=== PATIENT | female | born 1960 | race Caucasian/White ===

== ENCOUNTER 2017-10-25 09:16 | Outpatient (CLI) | payer OTHER | END 2017-10-25 09:17 | disposition home or self-care (01) | LOC: BICCT 09:16 | PROVIDERS: ATTEND Internal Medicine Hematology & Oncology | DX: C54.1 Malignant neoplasm of endometrium (principal); C78.39 Secondary malignant neoplasm of other respiratory organs | CPT/HCPCS: 71260; 74177 ==

== ENCOUNTER 2017-12-22 08:46 | Outpatient (CLI) | payer OTHER ==
[2017-12-22] MEDS ORDERED: Iopamidol 370 76% 100 ML VIAL ONE (09:00)
--- NOTE | 2017-12-22 14:14 | CT ---
CT OF NECK SOFT TISSUES: INDICATION: Neck masses, history of uterine cancer. FINDINGS: Underlying the left neck palpable marker, there is a heterogeneous, spiculated bilobed mass which is located just to the left lateral aspect of the carotid sheath and underlying the left sternocleidomas toid muscle, with transverse diameter of 2 cm, AP diameter of 2.2 cm, and craniocaudal extent of appr oximately 2.5 cm. There is no intrinsic mass of the salivary glands or thyroid gland. There is appo sition of mucosal surfaces of the oropharynx. The nasopharynx is free from mass effect. There is mi ld redundancy/medial deviation of the right vocal cord. Incompletely assessed soft tissue nodularity is seen at the upper mediastinal fat. There is a right chest port in place. There is no discrete soft tissue mass underlying the right side palpable marker. There is a grouping of nonenlarged lymph nodes underlying the right palpable marker, situated just deep to the right daniel rnocleidomastoid muscle and lateral to the right internal jugular vein. There is scattered osseous d egenerative change. IMPRESSION: 1. Heterogeneous spiculated bilobed mass of the left neck underlying the left palpable marker which does indicate malignancy, metastatic in etiology given the appearance and location. 2. Additional findings are detailed above. Soft tissue mass situated deep within the neck soft tiss ues and just inferior to the inferior aspect of the left side palpable marker. The mass is spiculate d in morphology measuring approximately 2.1 cm in diameter with surrounding linear densities of the a djacent fat. POS: [facility]
--- NOTE | 2017-12-22 18:57 | CT ---
CT CHEST WITH IV CONTRAST CT ABDOMEN AND PELVIS WITH IV AND ORAL CONTRAST 12/22/17 HISTORY: Endometrial cancer with metastatic disease. Restaging. COMPARISON: 10/25/17. FINDINGS: Lesion at the left neck base is better detailed on dedicated CT neck. There is mild atelectasis at th e lung bases. The prevascular lymph node followed on previous exam is now 0.9 cm. Other lymph nodes scattered throu ghout the mediastinum are now more prominent, although not technically enlarged. Upper prevascular 0. 8 cm. Preaortic 1.1 cm. Very small precarinal lymph nodes. Small cysts scattered throughout the liver are unchanged in appearance. Solid organs are stable. Retroperitoneal lymph nodes have enlarged. The largest is now immediately superior to the retroaortic left renal vein, measuring 1.6 cm. Aortocaval node is 1.3 cm. Left para-aortic lymph node is 0.9 cm. More visible but nonenlarged lymph nodes are present along each common iliac chain. Urinary bladder is incompletely distended. Degenerative changes throughout the lumbar spine. IMPRESSION: While the largest of the now more conspicuous mediastinal and retroperitoneal lymph nodes are only sl ightly enlarged, as detailed above, there has indeed been significant change from the 10/27/17 study. Chronic type findings are stable. POS: [facility]
== END 2017-12-22 08:47 | disposition home or self-care (01) ==
LOC: SCSCT 08:46
PROVIDERS: ATTEND Internal Medicine Hematology & Oncology
DX: C54.1 Malignant neoplasm of endometrium (principal); C78.39 Secondary malignant neoplasm of other respiratory organs; R59.0 Localized enlarged lymph nodes; C79.89 Secondary malignant neoplasm of other specified sites
CPT/HCPCS: 70491; 71260; 74177

== ENCOUNTER 2017-12-28 12:25 | Outpatient (CLI) | payer OTHER | END 2017-12-28 12:26 | disposition home or self-care (01) | LOC: ULT 12:25 | PROVIDERS: ATTEND Internal Medicine Hematology & Oncology | DX: C56.1 Malignant neoplasm of right ovary (principal); I08.1 Rheumatic disorders of both mitral and tricuspid valves | CPT/HCPCS: 93306 ==

== ENCOUNTER 2017-12-29 11:38 | Outpatient (CLI) | payer OTHER ==
--- NOTE | 2017-12-29 12:53 | RAD ---
VASCULAR ACCESS PORT CHECK: HISTORY: Swelling of the right arm. COMPARISON: None. FINDINGS: The patient was brought to the fluoroscopy suite. All questions were answered. The port was accessed, and 10 mL of contrast was instilled into the port. Contrast easily passed thr ough the port, with contrast in the right atrium. IMPRESSION: Normal port check. Patent port. POS: [facility]
[2017-12-29] MEDS ORDERED: Iopamidol 300 61% 50 ML VIAL FS ONE (13:40)
== END 2017-12-29 11:39 | disposition home or self-care (01) ==
LOC: RAD 11:38
PROVIDERS: ATTEND Nurse Practitioner Acute Care
DX: C78.39 Secondary malignant neoplasm of other respiratory organs (principal); C56.1 Malignant neoplasm of right ovary; C54.1 Malignant neoplasm of endometrium; R59.0 Localized enlarged lymph nodes
CPT/HCPCS: 36598; J1642

== ENCOUNTER 2018-03-09 13:59 | Day surgery (SDC) | payer OTHER ==
[2018-03-09] MEDS ORDERED: Sodium Chloride 0.9% 20 ML ONE (14:28)
[2018-03-09] MEDS ORDERED: Acetaminophen 500 MG TAB PO SCH (14:30)
[2018-03-09] MEDS ORDERED: diphenhydrAMINE 25 MG CAP PO SCH (14:30)
[2018-03-09 18:38] VITALS: BP 140/72; TEMP 98.2
[2018-03-09 18:54] LABS: #Eosinphils 0.1 thou/uL (0.0-0.7); #Lymphocytes 1.7 thou/uL (1.20-3.40); #Monocytes 0.2 thou/uL (0.11-0.59); #Neutrophils 8.1 thou/uL (1.40-6.50); %Basophils 0.4 % (0.0-1.0); %Eosinophils 1.2 % (0.0-10.0); %Lymphocytes 16.7 % (21.0-51.0); %Neutrophils 79.8 % (42.0-75.0); Hemoglobin 8.4 g/dL (12.0-16.0); Mean Corpuscular HGB CONC 32.4 g/dL (32.0-36.0); Mean Corpuscular Hemoglobin 28.3 pg (27.0-31.0); Mean Corpuscular Volume 87.4 fL (78.0-98.0); Mean Platelet Volume 5.8 fL (7.4-10.4); Platelet Count 52 thou/uL (130-400); RBC Distribution Width 16.1 % (11.5-14.5); Red Blood Cell (RBC) Count 2.95 mill/uL (4.20-5.40); White Blood Cell (WBC) Count 10.2 thou/uL (4.8-10.8)
[2018-03-09 19:07] LABS: Anisocytosis SLIGHT = 6-15 cells (100X) (0-5/hpf); MDiff Complete? YES; PLT Morphology Comment Appears Decreased; Polychromasia SLIGHT = 2-3 cells (100X) (0-2/hpf); Schistocytes SLIGHT = 2-5 cells (100X) (0-1/hpf)
== END 2018-03-09 18:39 | disposition home or self-care (01) ==
LOC: ONC/OP 13:59
PROVIDERS: ATTEND Internal Medicine Hematology & Oncology
DX: D64.9 Anemia, unspecified (principal); D69.6 Thrombocytopenia, unspecified; Z88.2 Allergy status to sulfonamides
CPT/HCPCS: 36430; 85025; 86850; 86900; 86901; P9016

== ENCOUNTER 2018-03-23 08:28 | Outpatient (CLI) | payer OTHER ==
[2018-03-23] MEDS ORDERED: ISOVUE-370 76%-LOCM 1 ML ONE (12:31)
--- NOTE | 2018-03-23 13:10 | CT ---
CONTRAST ENHANCED CT IMAGES SOFT TISSUE NECK: HISTORY: Patient with ovarian cancer. COMPARISON: 12/22/2017 FINDINGS: Contrast enhanced CT images of the soft tissue neck demonstrate areas of focal soft tissue enhancemen t along the left carotid space, posterior to the left internal jugular vein. Maximum diameter measur es approximately 1.4 cm. This has not significantly changed since the previous comparison CT. The m argins of this lesion are ill defined, extending into the surrounding soft tissue neck margins, inclu ding the adjacent fat and the posterior wall of the left internal jugular vein. There is also an julio roximately 1.5 cm area of ill defined density, just posterior to the medial aspect of the left clavic le, at the sternoclavicular notch. This area previously was difficult to visualize due to the streak ing artifact from injected left upper extremity contrast. This area is visible on today's exam and a ppears to be anterior to the proximal portion of the left common carotid artery. It may represent a newly developed mass or may represent better visualization of the same area. In addition, asymmetric density is also seen at the junction of the left anterior middle scalene muscles, seen on axial imag e 49. This appears to have been present on the previous exam and may represent possible metastatic d isease in the low left neck, involving the expected exit of the left brachial plexus. IMPRESSION: Stable soft tissue neck metastatic lesions. POS: [facility]
--- NOTE | 2018-03-23 13:52 | CT ---
CT CHEST WITH CONTRAST: HISTORY: Endometrial cancer. Ovarian cancer. COMPARISON: 12/22/2017 FINDINGS: Again, a right jugular Mediport catheter is seen. There is a left medial supraclavicular lymph node, which appears to be slightly smaller than the previous exam. This measures approximately 10.5 mm, c ompared to previous measurement of approximately 12.5 mm. Some minimal superior and AP window lymph node enlargement is again seen, not significantly changed since the previous exam. Minimally enlarge d anterior mediastinal lymph node is again seen, not significantly changed since the previous exam. No definite evidence of pulmonary parenchymal lesions seen. Hypodense lesions seen in the hepatic parenchyma, unchanged since the previous exam. Paraaortic lymph node enlargement also again seen, not significantly changed since the previous exam. IMPRESSION: Lower soft tissue neck, mediastinal, and periaortic lymphadenopathy, which is stable and not signific antly increased. POS: [facility]
== END 2018-03-23 08:29 | disposition home or self-care (01) ==
LOC: BICCT 08:28
PROVIDERS: ATTEND Internal Medicine Hematology & Oncology
DX: C54.1 Malignant neoplasm of endometrium (principal); C56.1 Malignant neoplasm of right ovary; C78.39 Secondary malignant neoplasm of other respiratory organs; C79.89 Secondary malignant neoplasm of other specified sites; R59.0 Localized enlarged lymph nodes
CPT/HCPCS: 70491; 71260; 74160

== ENCOUNTER 2018-04-07 12:46 | Inpatient (IN) | payer OTHER ==
[2018-04-07 14:44] VITALS: BMI 23.8
[2018-04-07 17:10] LABS: Anion Gap 13 mmol/L (10-20); BUN (Urea Nitrogen) 19 mg/dL (9.8-20.1); Calc. Creatinine Clearance 51 mL/min (70-130); Calcium 8.8 mg/dL (7.8-10.44); Carbon Dioxide 18 mmol/L (22-29); Chloride 112 mmol/L (98-107); Estimated GFR-MDRD 49; Glucose 114 mg/dL (70-105); Potassium 3.4 mmol/L (3.5-5.1); Sodium 140 mmol/L (136-145)
[2018-04-07] MEDS: HYDROcodone/Acetaminophen 5/325 mg Tablet PO PRN ×2 (17:12→21:17)
[2018-04-07] MEDS: Sodium Chloride 0.9% 1,000 ML IV SCH (17:31)
[2018-04-07] MEDS: Vancomycin HCl 1 GM in Premix Bag 1 BAG IVPB SCH (17:34)
[2018-04-07] MEDS: Piperacillin/Tazobactam 3.375 GM in Sodium Chloride 0.9% 100 ML IVPB SCH ×2 (18:48→23:54)
--- NOTE | 2018-04-07 22:47 | CON ---
DATE OF CONSULTATION: 04/07/2018 REASON FOR CONSULTATION: Possible Medi-Port infection. HISTORY OF PRESENT ILLNESS: Ms. Martin is a 57-year-old woman, who is undergoing adjuvant chemotherapy for uterine cancer. She underwent neoadjuvant chemotherapy and surgery at [facility] in [place] and was found to have lymph node involvement by report. She has been undergoing chemotherapy since that time and last received her chemotherapy about 2 weeks ago. She states that she was in good health until yesterday when she developed nausea, vomiting, crampy abdominal pain, and diarrhea. She then developed fevers at home and shaking chills and noticed that the neck and chest where her Medi-Port is located was red and swollen. She came to an outside emergency room and was found to have an elevated white count and was transferred to [place] for further care. She initially defervesced after receiving Zosyn and vancomycin at the outside emergency room, but then had a recrudescence of her fever on her arrival here and is currently having chills again. She states that she does not have any abdominal pain today or any nausea, but she was tender in the right upper quadrant on her examination and a gallbladder ultrasound has been ordered for tomorrow morning. PAST MEDICAL HISTORY: Uterine cancer. PAST SURGICAL HISTORY: Distant appendectomy and more recent total abdominal hysterectomy, bilateral salpingo-oophorectomy and lymph node dissection at [facility]. ALLERGIES: SHE HAS A REPORTED ALLERGY TO BACTRIM. CURRENT MEDICATIONS: Include: 1. Vancomycin. 2. Zosyn. 3. P.r.n. Tylenol and Bowie. 4. Home medications have not yet been reconciled. REVIEW OF SYSTEMS: 10-system review of systems is negative except per HPI. She reports that she has been tolerating chemotherapy well. FAMILY HISTORY: Noncontributory. SOCIAL HISTORY: She does not smoke, drink, or use illicit drugs. She is accompanied by her family. PHYSICAL EXAMINATION: VITAL SIGNS: Temperature 101.4, heart rate 80, respirations 16, 97% saturations on room air, blood pressure 129/60. GENERAL: Reveals an ill-appearing woman, in no acute distress. She is shivering under two blankets. HEENT: Unremarkable except for erythema, swelling, and tenderness over the course of her Medi-Port tubing on the right neck and chest. Due to her tenderness in this area, I cannot really palpate for lymphadenopathy at the base of her neck. HEART: Regular in its rate and rhythm without murmurs, rubs, or gallops. LUNGS: Clear to auscultation bilaterally. She does not have any pain with deep inspiration. ABDOMEN: Soft and nondistended. She is tender to palpation in the right upper quadrant without rigidity, rebound, or guarding. No palpable masses or hernias. EXTREMITIES: Warm and well-perfused without edema. NEUROLOGIC: No focal deficits. PSYCHIATRIC: Alert, oriented, and appropriate. LABORATORY DATA: Labs from the outside ER show a mild leukocytosis with a white count of 12. Other labs are unremarkable except for chronic anemia and a mild hypokalemia. Bicarb is down a little bit of 18 and creatinine is slightly elevated at 1.13. A chest x-ray done at the outside ER by report was clear. ASSESSMENT: Possible Medi-Port infection and possible cholecystitis. She has an ultrasound of the gallbladder pending for tomorrow and if this is normal, I would recommend a HIDA scan with ejection fraction due to high suspicion for cholecystitis. She has erythema and tenderness overlying her Medi-Port. Cultures from the Medi-Port are pending. I have discussed possible removal of the Medi-Port with Dr. Last of Oncology and he prefers to try a course of antibiotics to see if the port can be salvaged. If the cultures come back positive or the erythema and tenderness continue, then Medi- Port removal maybe necessary. There is no fluctuance around the Medi-Port itself and it has not been accessed for over a week. I will continue to follow her as an inpatient and await the outcome of her gallbladder studies and see how she responds to her course of antibiotics. Job ID: [id number]
[2018-04-08] MEDS: HYDROcodone/Acetaminophen 5/325 mg Tablet PO PRN ×2 (01:27→05:18)
[2018-04-08] MEDS: Vancomycin HCl 1 GM in Premix Bag 1 BAG IVPB SCH ×2 (05:14→18:21)
[2018-04-08] MEDS: Piperacillin/Tazobactam 3.375 GM in Sodium Chloride 0.9% 100 ML IVPB SCH ×3 (06:58→19:50)
[2018-04-08 07:28] LABS: ALT (SGPT) 13 U/L (8-55); AST (SGOT) 25 U/L (5-34); Albumin 3.1 g/dL (3.5-5.0); Alkaline Phosphatase 124 U/L (40-150); Anion Gap 11 mmol/L (10-20); BUN (Urea Nitrogen) 20 mg/dL (9.8-20.1); Bilirubin, Total 0.5 mg/dL (0.2-1.2); Calc. Creatinine Clearance 50 mL/min (70-130); Calcium 8.4 mg/dL (7.8-10.44); Carbon Dioxide 19 mmol/L (22-29); Chloride 111 mmol/L (98-107); Estimated GFR-MDRD 49; Globulin 2.7 g/dL (2.4-3.5); Glucose 120 mg/dL (70-105); Potassium 3.5 mmol/L (3.5-5.1); Protein, Total 5.8 g/dL (6.0-8.3); Sodium 137 mmol/L (136-145)
[2018-04-08 07:35] LABS: Hemoglobin 6.9 g/dL (12.0-16.0); Mean Corpuscular HGB CONC 33.6 g/dL (32.0-36.0); Mean Corpuscular Hemoglobin 28.9 pg (27.0-31.0); Mean Corpuscular Volume 86.1 fL (78.0-98.0); Mean Platelet Volume 10.7 fL (7.4-10.4); Platelet Count 43 thou/uL (130-400); RBC Distribution Width 14.8 % (11.5-14.5); Red Blood Cell (RBC) Count 2.39 mill/uL (4.20-5.40); White Blood Cell (WBC) Count 18.4 thou/uL (4.8-10.8)
[2018-04-08] MEDS ORDERED: Promethazine HCl 25 MG/ML VIAL IM/IV PRN (07:51)
--- NOTE | 2018-04-08 08:08 | ULT ---
RIGHT UPPER QUADRANT ULTRASOUND: INDICATIONS: Right upper quadrant tenderness. Nausea and vomiting. FINDINGS: There is intrahepatic and extrahepatic biliary ductal dilatation, which was not present on the compar steven CT, dated 12/22/2017. The gallbladder is moderately distended. There is report of a sonographi c Kahn sign but no appreciable gallbladder wall thickening. The main pancreatic duct is dilated up to 3 mm, which appears new from the comparison CT. The right kidney measures 10.1 cm in length. No hydronephrosis is evident. The visualized liver demonstrates numerous right hepatic lobe cysts, which were see better on the CT examination. The common bile duct is dilated up to 9.2 mm. IMPRESSION: New biliary ductal dilatation, as well as main pancreatic ductal dilatation. Obstructing process vasquez r the ampulla, possibly related to stone or mass, is not excluded. Would recommend consideration for an magnetic resonance cholangiopancreatography evaluation or, alternatively, a CT of the abdomen and pelvis with contrast, to further evaluate this abnormality. POS: [facility]
--- NOTE | 2018-04-08 08:16 | PDOC.PN ---
- Subjective Encounter Start Date: 04/08/18 Encounter Start Time: 08:15 Reports nausea again this morning. Had a lot of discomfort with the RUQ US this morning. Does also confirm that she has had anemia with her chemo and has had blood transfusions. She has not typically had nausea with her current regimen of chemo. - Objective Resuscitation Status - Order Detail: 04/07/18 16:14 Resuscitation Status Routine Resuscitation Status: FULL: Full Resuscitation Discussed with: patient Vital Signs & Weight: Vital Signs (12 hours) Temp Pulse Resp BP Pulse Ox 04/08/18 08:00 99.0 F 87 18 124/59 L 94 L 04/08/18 04:00 98.5 F 71 12 120/59 L 96 04/07/18 23:56 98.8 F 86 12 113/54 L 95 04/07/18 20:15 96 Weight Weight 130 lb I&O: 04/07/18 04/08/18 04/09/18 06:59 06:59 06:59 Intake Total 1029 Balance 1029 Result Diagrams: 04/08/18 06:39 04/08/18 06:39 Phys Exam - Physical Examination Constitutional: NAD Ill appearing. R SC tunneled catheter with persistent erythema and TTP. Increased edema in the R supraclav. area. Very TTP. Respiratory: no wheezing, no rales, no rhonchi, clear to auscultation bilateral Cardiovascular: RRR, no significant murmur, no rub Gastrointestinal: soft, no distention Extreme RUQ TTP with guarding. Musculoskeletal: no edema Neurological: non-focal Psychiatric: normal affect, A&O x 3 Dx/Plan (1) Infection of intravenous catheter Code(s): T82.7XXA - INFECT/INFLM REACT D/T OTH CARDI/VASC DEV/IMPLNT/GRFT, INIT Status: Acute Comment: Continue IV Vanc and Zosyn. Cultures pending. Surgery following. She discussed with Onc and the plan is to try to resolve with abx. She has generated a good leukocytosis, but her other counts are down. Concerning that she will not maintain the WBC's. (2) RUQ abdominal pain Code(s): R10.11 - RIGHT UPPER QUADRANT PAIN Status: Acute Comment: Still has GB. Very concerning for GB disease. US done this morning. Discussed with surgery. If negative, will follow up with HIDA. Should be adequately covered with current abx. (3) Uterine cancer Code(s): C55 - MALIGNANT NEOPLASM OF UTERUS, PART UNSPECIFIED Status: Acute Comment: Followed by Dr. Plascencia. Extensive LN involvement, but no major organ involvement. Ongoing chemo. Due for chemo on Monday. Will likely have to delay pending the course of the infected port and abd. pain. (4) Anemia due to chemotherapy Code(s): D64.81 - ANEMIA DUE TO ANTINEOPLASTIC CHEMOTHERAPY; T45.1X5A - ADVERSE EFFECT OF ANTINEOPLASTIC AND IMMUNOSUP DRUGS, INIT Status: Acute Comment: Amenable to transfusion. Tranfuse one unit 04/08/18. Continue to monitor. (5) Nausea Code(s): R11.0 - NAUSEA Status: Acute Comment: More likely related to RUQ pain and port infection than the chemo. PRN ondansetron and phenergan. (6) Thrombocytopenia Code(s): D69.6 - THROMBOCYTOPENIA, UNSPECIFIED Status: Acute Comment: Chemo related. Continue to monitor. Will complicate surgical picture. - Plan * Above..
[2018-04-08] MEDS: Sodium Chloride 0.9% 1,000 ML IV SCH (08:27)
[2018-04-08] MEDS: Ondansetron PF 4 MG/2 ML Vial IVP PRN (08:27)
[2018-04-08] MEDS ORDERED: Prevnar 13-Val Conj/PF 0.5 ML SYRINGE IM ONE (09:00)
[2018-04-08 10:53] LABS: Band 4 % (5-11); Hypochromia SLIGHT = 6-15 cells (100X) (0-5/hpf); Lymphocytes 9 % (21-51); MDiff Complete? YES; Microcytosis MODERATE=15-30 cells (100X) (0-5/hpf); Monocytes 2 % (0-10); Neutrophil 84 % (42-75); PLT Morphology Comment Appears Decreased; Polychromasia SLIGHT = 2-3 cells (100X) (0-2/hpf)
[2018-04-08] MEDS: Amlodipine 10 MG TAB PO SCH ×2 (10:57→14:57)
[2018-04-08] MEDS: Lisinopril 10 MG TAB PO SCH ×2 (10:58→14:57)
[2018-04-08] MEDS: Hydrochlorothiazide 25 MG TAB PO SCH ×2 (10:58→14:57)
[2018-04-08] MEDS: HYDROcodone/Acetaminophen 10/325 mg Tablet PO PRN ×2 (12:03→18:20)
[2018-04-08] MEDS ORDERED: Sodium Chloride 0.9% 1,000 ML IV SCH (12:45)
--- NOTE | 2018-04-08 13:52 | MRI ---
MRI ABDOMEN WITHOUT CONTRAST: INDICATIONS: History of metastatic uterine cancer with pancreatic and biliary ductal dilatation. Concern for ston e within the common bile duct. COMPARISON: CT abdomen and pelvis dated 12/22/2017 and right upper quadrant ultrasound dated 04/08/2018. TECHNIQUE: Multiplanar, multisequence MR images were obtained of the abdomen, utilizing an MRCP protocol. FINDINGS: There is moderate distention of the gallbladder with mild gallbladder wall thickening. There is a carbajal spected small pharyngeal cap involving the gallbladder fundus. There is moderate intrahepatic and ex trahepatic biliary ductal dilatation, with the common bile duct measuring 8.5 mm. There is some susp ected layered debris within the distal common bile duct, best seen on image 15 of series 2 and image 33 and 34 of series 3. There is mild main pancreatic ductal dilatation, with the main pancreatic benjamin t measuring 3 mm, at the level of the pancreatic head. There is some mild seen within the left aspec t of the anterior pararenal space, near the pancreatic tail which may reflect a component of pancreat itis. There are multiple hepatic and left renal cysts. IMPRESSION: 1. Findings suspicious for layered gallbladder sludge, at the level of the distal common bile duct, with moderate dilatation of the intrahepatic and extrahepatic biliary ducts. There is mild dilatati on of the main pancreatic duct. 2. There is edema seen adjacent to the pancreatic tail, within the anterior pararenal space, suspici ous for pancreatitis. Recommend correlation. 3. Hepatic and left renal cysts. POS: [facility]
[2018-04-08] MEDS ORDERED: Sodium Chloride 0.65% Nasal 44 ML BOT EA NARE PRN (19:27)
[2018-04-09] MEDS: HYDROcodone/Acetaminophen 10/325 mg Tablet PO PRN ×4 (00:40→17:53)
[2018-04-09] MEDS: Piperacillin/Tazobactam 3.375 GM in Sodium Chloride 0.9% 100 ML IVPB SCH ×5 (00:41→23:04)
[2018-04-09] MEDS: Sodium Chloride 0.9% 1,000 ML IV SCH ×3 (04:33→21:35)
[2018-04-09] MEDS: Vancomycin HCl 1 GM in Premix Bag 1 BAG IVPB SCH ×2 (06:00→16:04)
[2018-04-09 06:32] LABS: #Eosinphils 0.2 thou/uL (0.0-0.7); #Lymphocytes 1.1 thou/uL (1.20-3.40); #Monocytes 0.6 thou/uL (0.11-0.59); #Neutrophils 10.1 thou/uL (1.40-6.50); %Basophils 0.2 % (0.0-1.0); %Eosinophils 1.4 % (0.0-10.0); %Lymphocytes 8.9 % (21.0-51.0); %Monocytes 5.3 % (0.0-10.0); %Neutrophils 84.2 % (42.0-75.0); Hemoglobin 8.2 g/dL (12.0-16.0); Mean Corpuscular HGB CONC 33.6 g/dL (32.0-36.0); Mean Corpuscular Hemoglobin 28.8 pg (27.0-31.0); Mean Corpuscular Volume 85.8 fL (78.0-98.0); Mean Platelet Volume 10.8 fL (7.4-10.4); Platelet Count 47 thou/uL (130-400); RBC Distribution Width 15.5 % (11.5-14.5); Red Blood Cell (RBC) Count 2.85 mill/uL (4.20-5.40)
[2018-04-09 06:37] LABS: ALT (SGPT) 13 U/L (8-55); AST (SGOT) 20 U/L (5-34); Albumin 2.9 g/dL (3.5-5.0); Alkaline Phosphatase 110 U/L (40-150); Anion Gap 11 mmol/L (10-20); BUN (Urea Nitrogen) 19 mg/dL (9.8-20.1); Bilirubin, Total 0.7 mg/dL (0.2-1.2); Calc. Creatinine Clearance 43 mL/min (70-130); Calcium 8.3 mg/dL (7.8-10.44); Carbon Dioxide 18 mmol/L (22-29); Chloride 111 mmol/L (98-107); Estimated GFR-MDRD 41; Globulin 2.8 g/dL (2.4-3.5); Glucose 79 mg/dL (70-105); Lipase Less than 4 U/L (8-78); Potassium 3.3 mmol/L (3.5-5.1); Protein, Total 5.7 g/dL (6.0-8.3); Sodium 137 mmol/L (136-145)
--- NOTE | 2018-04-09 07:49 | HP ---
CHIEF COMPLAINT: Fever. HISTORY: The patient is a 57-year-old female with a history of metastatic uterine cancer primarily affecting lymph nodes with no reported organ involvement of metastatic disease. The patient has been receiving chemo generally weekly. She presented to [facility] in [place] with a complaint of fever. The patient had reported a temperature of a 101 degrees and had taken some jeni-dnz-mrxvcye medications including Tylenol and ibuprofen with no significant improvement. She reports some swelling in he neck that she has had problems related to that because of enlarging lymph nodes that have enlarged and reduced several times in relation to receiving the chemotherapy. The patient also reported an episode of nausea, vomiting, and diarrhea on the day before she presented, although that was improved at the time of her presentation. REVIEW OF SYSTEMS: All other systems were reviewed. All pertinent positives and negatives noted in the history of present illness. PAST MEDICAL HISTORY: Notable for the metastatic uterine cancer. SURGICAL HISTORY: Appendectomy, total abdominal hysterectomy with BSO, prior lymph node dissection. FAMILY HISTORY: Reviewed, nothing significant or pertinent related to this current admission. SOCIAL HISTORY: The patient is a nonsmoker and nondrinker, nondrug user. She is a full code and her daughter would be her surrogate decision maker. ALLERGIES: SULFA. PHYSICAL EXAMINATION: VITAL SIGNS: Temperature is 99.9, pulse 94, respirations 12, O2 saturation 96% on room air, BP is 131/61. GENERAL APPEARANCE: Age-appropriate female. She is in no distress. She is awake, alert, oriented, pleasant, cooperative. HEENT: PERRL. No OP lesions. NECK: Notable for some edema in the right lateral neck and supraclavicular area emanating from the right subclavian tunneled Mediport, which has surrounding exquisite tenderness and erythema and warmth. HEART: Regular rate and rhythm without murmurs, gallops, or rubs. LUNGS: Clear to auscultation bilaterally. Good chest wall expansion and air exchange. ABDOMEN: Soft, nondistended with positive bowel sounds. She is extremely tender in the right upper quadrant with guarding and too tender really to even truly test for Kahn's. EXTREMITIES: Warm and dry without edema. SKIN: Reveals no rashes. NEURO AND PSYCH: The patient is neurologically intact and has normal affect and behavior. LABORATORY DATA: Labs performed from the outside facility notable for lactic acid of 1.62, sodium 139, potassium 3.3, bicarb 23, chloride 106, glucose 155, calcium 8.8, BUN 21, creatinine is 1.5, alkaline phosphatase 119, ALT 12, AST 26, total bilirubin 0.6, albumin 3.2, total protein 1.65. Urinalysis is negative. White count was 12, hemoglobin was about 7.5. HOSPITAL COURSE: The patient was felt to have possible infection in the Mediport in the right subclavian area that was tunneled with erythema surrounding this along with the patient's fever. She was started on vancomycin and Zosyn, and subsequently transferred to this facility. IMPRESSION AND PLAN: 1. The patient has evidence of infected Mediport. She will continue with the vancomycin and Zosyn. We will consult Surgery, as this will likely need to be removed. Continue to monitor her blood counts. 2. Right upper quadrant abdominal pain concerning for possible gallbladder disease. We will obtain an ultrasound of the gallbladder. Her current antibiotics should be reasonable for that as well. 3. Metastatic uterine cancer. The patient has ongoing chemotherapy. We will continue to monitor her blood counts. She was supposed to be getting chemotherapy again on Monday; however, it will be challenging with the infected port. We do not believe her chemotherapy can be given through peripheral, and she will likely need to delay treatment until we can find the appropriate mechanism for administering that. We may need to involve Oncology for this decision as well. Job ID: [id number]
--- NOTE | 2018-04-09 07:51 | CON ---
DATE OF CONSULTATION: HISTORY OF PRESENT ILLNESS: The patient is a 57-year-old female, who presented to the hospital with possible port infection. She was hurting around her head and neck and was being seen in the ER. In the ER, she reports they palpated her abdomen and that is when she developed abdominal pain. She reports this pain is in the right upper quadrant. She has not had previous episodes of pain. She has had some fever and chills and some nausea and vomiting. PAST MEDICAL HISTORY: Significant for; 1. Metastatic uterine cancer to abdominal lymph nodes. 2. Hypertension. PAST SURGICAL HISTORY: Includes; 1. Appendectomy. 2. Hysterectomy. 3. Oophorectomy. 4. Lymph node dissection. ALLERGIES: INCLUDE SULFA. HOME MEDICATIONS: Include; 1. Zoloft 100 mg p.o. daily. 2. Omeprazole 20 mg p.o. daily. 3. Lisinopril 10 mg p.o. daily. 4. Hydrochlorothiazide 25 mg p.o. daily. 5. Hydrocodone 1 q.6 hours p.r.n. 6. Norvasc 10 mg p.o. daily. SOCIAL HISTORY: She does not smoke or drink. FAMILY HISTORY: Negative for GI or liver disease. REVIEW OF SYSTEMS: CONSTITUTIONAL: Positive for fever, chills. Positive for weight loss. EYES: No blurred vision or double vision. ENT: No sore throat or earaches. CARDIOVASCULAR: No chest pain or palpitation. PULMONARY: No shortness of breath, cough, or wheezing. GI: See above. : No hematuria or dysuria. MUSCULOSKELETAL: No joint pain or muscle weakness. SKIN: No rashes. NEUROLOGIC: No numbness or seizure activity. PHYSICAL EXAMINATION: GENERAL: Shows a well-developed, well-nourished, white female, in no acute distress. HEENT: Unremarkable. NECK: Supple. CHEST: Clear. CARDIOVASCULAR: Regular rate and rhythm. ABDOMEN: Soft, tender in the right upper quadrant without rebound or guarding. Bowel sounds are present, normoactive. RECTAL: Deferred. EXTREMITIES: Normal. NEUROLOGIC: Nonfocal. LABORATORY AND DIAGNOSTIC DATA: Shows a white blood cell count of 18.4, hemoglobin 6.9, hematocrit 20.6, platelet counts 43,000. Chemistries are significant for a CO2 of 19, creatinine 1.14, glucose 120, total protein 5.8, albumin 3.1. Abdominal ultrasound showed new biliary ductal dilatation as well as main pancreatic ductal dilatation. Abdominal MRI showed findings suspicious for layered gallbladder sludge at the level of the distal common duct with moderate dilatation of the intrahepatic and extrahepatic biliary ducts and mild dilatation of the main pancreatic duct. There is some edema adjacent to the pancreatic tail, suspicious for pancreatitis. Hepatic and renal cysts are noted. ASSESSMENT: 1. MediPort infection. 2. Biliary pancreatitis. 3. History of metastatic uterine cancer. 4. Thrombocytopenia. RECOMMENDATIONS: 1. Stat amylase and lipase on lab already drawn. 2. Repeat LFTs in a.m. 3. Repeat amylase, lipase in a.m. 4. Okay to continue with clear liquids. 5. May consider ERCP, pending results of above studies. Job ID: [id number]
[2018-04-09] MEDS: Amlodipine 10 MG TAB PO SCH (09:13)
[2018-04-09] MEDS: Lisinopril 10 MG TAB PO SCH (09:13)
[2018-04-09] MEDS: Hydrochlorothiazide 25 MG TAB PO SCH (09:13)
--- NOTE | 2018-04-09 10:22 | PRG ---
DATE OF SERVICE: 04/09/2018 SUBJECTIVE: The patient is feeling better today. She is having not much abdominal pain. She is ready to resume eating. OBJECTIVE: VITAL SIGNS: Temperature 98.0, pulse of 85, blood pressure 155/71, and respiratory rate 18. HEENT: Unremarkable. CHEST: Clear. CARDIOVASCULAR: Regular rate and rhythm. ABDOMEN: Soft, less tender without rebound or guarding. LABORATORY DATA: Laboratory shows white blood cell count 12.0, hemoglobin 8.2, hematocrit 24.4, platelet count 47,000. Chemistries show potassium 3.3, creatinine 1.32, and albumin 2.9. Liver function tests were all normal. Lipase is less than 4. ASSESSMENT: 1. Abnormal MRCP - I reviewed these with the radiologist and although, she does have some prominence of the common bile duct and pancreatic duct, considering that her liver function tests are normal and the patient seems to be improving, I would not pursue ERCP at this time. 2. Metastatic endometrial cancer. 3. Port infection. RECOMMENDATIONS: 1. Begin full liquids. 2. Repeat LFTs in a.m. Job ID: [id number]
--- NOTE | 2018-04-09 11:14 | PDOC.PN ---
- Subjective Encounter Start Date: 04/09/18 Encounter Start Time: 11:13 Her abd pain is slightly better, but still very tender. Her port still feels inflamed and she feels like it has extended. - Objective Resuscitation Status - Order Detail: 04/07/18 16:14 Resuscitation Status Routine Resuscitation Status: FULL: Full Resuscitation Discussed with: patient Vital Signs & Weight: Vital Signs (12 hours) Temp Pulse Resp BP BP BP Pulse Ox 04/09/18 09:13 85 155/71 H 04/09/18 09:07 98.0 F 78 18 131/63 95 04/09/18 08:45 95 04/09/18 08:00 97.8 F 85 20 155/71 H 04/09/18 00:40 98.8 F Weight Weight 130 lb I&O: 04/08/18 04/09/18 04/10/18 06:59 06:59 06:59 Intake Total 1619 946 Balance 1619 946 Result Diagrams: 04/09/18 06:05 04/09/18 06:05 Phys Exam - Physical Examination Constitutional: NAD R SC tunneled port with erythema, warmth following the course of the line. Respiratory: no wheezing, no rales, no rhonchi, clear to auscultation bilateral Cardiovascular: RRR, no significant murmur, no rub Gastrointestinal: soft, no distention, positive bowel sounds Still very TTP in the RUQ with guarding. Musculoskeletal: no edema Psychiatric: normal affect, A&O x 3 Dx/Plan (1) Infection of intravenous catheter Code(s): T82.7XXA - INFECT/INFLM REACT D/T OTH CARDI/VASC DEV/IMPLNT/GRFT, INIT Status: Acute Comment: Continue IV Vanc and Zosyn. Cultures pending. Surgery following. She discussed with Onc and the plan is to try to resolve with abx. She has generated a good leukocytosis, but her other counts are down. WBC down. Fever resolved. Site does not look any better. (2) RUQ abdominal pain Code(s): R10.11 - RIGHT UPPER QUADRANT PAIN Status: Acute Comment: US and MRI show distended ducts. LFT's and panc enzymes normal. Maybe slightly better today. GI following. No ERCP for now. (3) Uterine cancer Code(s): C55 - MALIGNANT NEOPLASM OF UTERUS, PART UNSPECIFIED Status: Acute Comment: Followed by Dr. Plascencia. Extensive LN involvement, but no major organ involvement. Ongoing chemo. Due for chemo on Monday. Will likely have to delay pending the course of the infected port and abd. pain. (4) Anemia due to chemotherapy Code(s): D64.81 - ANEMIA DUE TO ANTINEOPLASTIC CHEMOTHERAPY; T45.1X5A - ADVERSE EFFECT OF ANTINEOPLASTIC AND IMMUNOSUP DRUGS, INIT Status: Acute Comment: Amenable to transfusion. Tranfuse one unit 04/08/18. Continue to monitor. (5) Nausea Code(s): R11.0 - NAUSEA Status: Resolved Comment: More likely related to RUQ pain and port infection than the chemo. PRN ondansetron and phenergan. (6) Thrombocytopenia Code(s): D69.6 - THROMBOCYTOPENIA, UNSPECIFIED Status: Acute Comment: Chemo related. Continue to monitor. Will complicate surgical picture. - Plan * Will discuss with Dr. Plascencia. Concerned that the abx are not going to be successful and the port will need to be removed. Need to establish a new access for chemo soon.
[2018-04-09] MEDS ORDERED: Lidocaine 1% w/Epinephrine 1:100K 20 ML VIAL ONE (13:26)
[2018-04-09 17:03] LABS: Vancomycin, Trough 56.7 ug/mL
--- NOTE | 2018-04-09 18:21 | PDOC.OP ---
Operative Note - Operative Note Operative Note: Mediport removed at bedside. Chloraprep skin prep, sterile drape, local anesthesia. Incision reopened and mediport removed, tract ligated and pocket imbricated with monocryl. Closed with subcuticular monocryl and dermabond. Tip and intracutaneous portion of catheter sent for culture.
--- NOTE | 2018-04-09 18:23 | PDOC.GSPN ---
Surgery Progress Note: Subj - Subjective Narrative: Stomach feels better today so ERCP not done. Will get HIDA in AM. Mediport removed per oncology request. Skin at catheter tract site quite swollen but no fluid aspirated. Will observe and get ultrasound if persists. Surgery Progress Note: Obj - Vital signs Vital signs: Vital Signs - Most Recent Temp Pulse Resp BP Pulse Ox 98.5 F 82 18 122/60 90 L 04/09/18 17:00 04/09/18 17:00 04/09/18 17:00 04/09/18 17:00 04/09/18 17:00 Surgery Progress Note: Results - Labs Result Diagrams: 04/09/18 06:05 04/09/18 06:05 Lab results: Laboratory Results - last 24 hr 04/09/18 04/09/18 04/09/18 06:05 06:05 16:28 WBC 12.0 H RBC 2.85 L Hgb 8.2 L Hct 24.4 L MCV 85.8 MCH 28.8 MCHC 33.6 RDW 15.5 H Plt Count 47 L MPV 10.8 H Neutrophils % 84.2 H Neutrophils % (Manual) Not Reportable Lymphocytes % 8.9 L Monocytes % 5.3 Eosinophils % 1.4 Basophils % 0.2 Neutrophils # 10.1 H Lymphocytes # 1.1 L Monocytes # 0.6 H Eosinophils # 0.2 Basophils # 0.0 Sodium 137 Potassium 3.3 L Chloride 111 H Carbon Dioxide 18 L Anion Gap 11 BUN 19 Creatinine 1.32 H Estimated GFR (MDRD) 41 Glucose 79 Calcium 8.3 Total Bilirubin 0.7 AST 20 ALT 13 Alkaline Phosphatase 110 Serum Total Protein 5.7 L Albumin 2.9 L Globulin 2.8 Albumin/Globulin Ratio 1.0 L Lipase Less than 4 L Vancomycin Trough 56.7 H*
[2018-04-10] MEDS: HYDROcodone/Acetaminophen 10/325 mg Tablet PO PRN ×3 (01:05→22:10)
[2018-04-10] MEDS: Sodium Chloride 0.9% 1,000 ML IV SCH ×2 (02:00→22:07)
[2018-04-10] MEDS ORDERED: Vancomycin HCl 1 GM in Premix Bag 1 BAG IVPB SCH (05:00)
[2018-04-10] MEDS: Piperacillin/Tazobactam 3.375 GM in Sodium Chloride 0.9% 100 ML IVPB SCH ×4 (05:10→23:40)
[2018-04-10 06:31] LABS: #Eosinphils 0.2 thou/uL (0.0-0.7); #Lymphocytes 0.9 thou/uL (1.20-3.40); #Monocytes 0.4 thou/uL (0.11-0.59); #Neutrophils 6.7 thou/uL (1.40-6.50); %Basophils 0.6 % (0.0-1.0); %Eosinophils 2.4 % (0.0-10.0); %Lymphocytes 10.6 % (21.0-51.0); %Neutrophils 81.4 % (42.0-75.0); Hemoglobin 7.7 g/dL (12.0-16.0); Mean Corpuscular HGB CONC 33.5 g/dL (32.0-36.0); Mean Corpuscular Hemoglobin 28.4 pg (27.0-31.0); Mean Corpuscular Volume 84.8 fL (78.0-98.0); Mean Platelet Volume 10.7 fL (7.4-10.4); Platelet Count 61 thou/uL (130-400); RBC Distribution Width 15.5 % (11.5-14.5); Red Blood Cell (RBC) Count 2.69 mill/uL (4.20-5.40); White Blood Cell (WBC) Count 8.2 thou/uL (4.8-10.8)
[2018-04-10 06:41] LABS: ALT (SGPT) 13 U/L (8-55); AST (SGOT) 22 U/L (5-34); Albumin 2.8 g/dL (3.5-5.0); Alkaline Phosphatase 98 U/L (40-150); Anion Gap 11 mmol/L (10-20); BUN (Urea Nitrogen) 16 mg/dL (9.8-20.1); Bilirubin, Total 0.6 mg/dL (0.2-1.2); Calc. Creatinine Clearance 45 mL/min (70-130); Calcium 8.5 mg/dL (7.8-10.44); Carbon Dioxide 19 mmol/L (22-29); Chloride 113 mmol/L (98-107); Estimated GFR-MDRD 43; Globulin 2.9 g/dL (2.4-3.5); Glucose 86 mg/dL (70-105); Potassium 3.1 mmol/L (3.5-5.1); Protein, Total 5.7 g/dL (6.0-8.3); Sodium 140 mmol/L (136-145); Vancomycin, Trough 31.5 ug/mL
[2018-04-10] MEDS ORDERED: Potassium Chloride 20 MEQ TAB PO SCH (11:00)
[2018-04-10] MEDS ORDERED: Sodium Chloride 0.9% 10 ML ONE (13:00)
[2018-04-10] MEDS: Amlodipine 10 MG TAB PO SCH (13:55)
[2018-04-10] MEDS: Hydrochlorothiazide 25 MG TAB PO SCH (13:58)
[2018-04-10] MEDS: Lisinopril 10 MG TAB PO SCH (13:59)
--- NOTE | 2018-04-10 14:58 | NM ---
HIDA SCAN: History: Abnormal liver function. Dose: 4.9 mCi Technetium 99M Choletec. In addition, 2 mg of Morphine was also given. FINDINGS: Images demonstrate uptake of the radioisotope with concentration seen in the biliary system. The gall bladder was not visualized after one hour. Therefore, 2 mg of Morphine was given IV. Gallbladder stil l did not visualize. IMPRESSION: Nonvisualization of the gallbladder. Findings concerning for acute cholecystitis. POS: [facility]
--- NOTE | 2018-04-10 15:27 | RAD ---
AP VIEW CHEST: HISTORY: Vomiting, fainting. FINDINGS: AP view chest is obtained on 04/10/2018. Comparison is made to previous exam from 08/07/2010. AP view chest demonstrates loss of the left lung hemidiaphragm interface. This may represent a left- sided area of consolidation in the left lung base. Correlate with PA and lateral views of the chest. IMPRESSION: Suboptimal visualization of the left hemidiaphragm. This may represent an area of left lower lobe co nsolidation. Correlate with PA and lateral views of the chest to better evaluate the left lung base. POS: [facility]
[2018-04-10 18:42] LABS: Vancomycin, Random 22.5 ug/mL (See Comment)
--- NOTE | 2018-04-10 18:51 | PRG ---
DATE OF SERVICE: 04/10/2018 SUBJECTIVE: The patient continues to complain of right upper quadrant pain. Dr. Null ordered a HIDA scan, which showed nonfilling of the gallbladder. Plans are for cholecystectomy tomorrow. OBJECTIVE: VITAL SIGNS: Temperature 98.0, pulse 86, respiratory rate 18, and blood pressure 165/76. HEENT: Unremarkable. NECK: Supple. CHEST: Clear. CARDIOVASCULAR: Regular rate and rhythm. ABDOMEN: Tender in the right upper quadrant without rebound or guarding. Bowel sounds are present, normoactive. LABORATORY DATA: Laboratory shows normal LFTs. CBC shows white blood cell count is 8.2, hemoglobin 7.7, platelet count 61,000. ASSESSMENT: Acute cholecystitis. RECOMMENDATIONS: Proceed with cholecystectomy and I will see. Job ID: [id number]
--- NOTE | 2018-04-10 20:12 | PDOC.PN ---
- Subjective Encounter Start Date: 04/10/18 Encounter Start Time: 09:30 Still has some redness at the site of the mediport removal. Feels much better to her. Less pain. Still has abdominal pain. Was a little hypoxic, but she believes it is related to pain in the abdomen that caused some splinting. Has a small amount of epistaxis and says that is fairly common for her. - Objective Resuscitation Status - Order Detail: 04/07/18 16:14 Resuscitation Status Routine Resuscitation Status: FULL: Full Resuscitation Discussed with: patient Vital Signs & Weight: Vital Signs (12 hours) Temp Pulse Resp BP BP Pulse Ox 04/10/18 17:00 98.2 F 83 17 135/69 98 04/10/18 13:59 165/76 H 04/10/18 13:55 86 165/76 H 04/10/18 13:43 98.0 F 86 18 165/76 H 96 04/10/18 08:30 92 L 04/10/18 08:15 97.9 F 95 20 172/78 H 90 L Weight Weight 130 lb I&O: 04/09/18 04/10/18 04/11/18 06:59 06:59 06:59 Intake Total 4714 461 0254 Balance 4627 979 1014 Result Diagrams: 04/10/18 05:57 04/10/18 05:57 Phys Exam - Physical Examination Constitutional: NAD nasal cannula oxygen. Left subclavian MediPort removal site still has some puffiness and erythema Respiratory: no wheezing Bibasilar rales, left greater than right. Cardiovascular: RRR, no significant murmur Gastrointestinal: soft, no distention, positive bowel sounds Still very TTP in the RUQ with guarding. Musculoskeletal: no edema Psychiatric: normal affect Dx/Plan (1) Infection of intravenous catheter Code(s): T82.7XXA - INFECT/INFLM REACT D/T OTH CARDI/VASC DEV/IMPLNT/GRFT, INIT Status: Acute Comment: MediPort removed. Site still a litte edematous, but less tender. Continue IV Vanc and Zosyn. Cultures pending. (2) RUQ abdominal pain Code(s): R10.11 - RIGHT UPPER QUADRANT PAIN Status: Acute Comment: US and MRI show distended ducts. LFT's and panc enzymes normal. Maybe slightly better today. GI following. HIDA scan ordered. (3) Uterine cancer Code(s): C55 - MALIGNANT NEOPLASM OF UTERUS, PART UNSPECIFIED Status: Acute Comment: Followed by Dr. Plascencia. Extensive LN involvement, but no major organ involvement. Ongoing chemo. Due for chemo on Monday. Will likely have to delay pending the course of the infected port and abd. pain. (4) Anemia due to chemotherapy Code(s): D64.81 - ANEMIA DUE TO ANTINEOPLASTIC CHEMOTHERAPY; T45.1X5A - ADVERSE EFFECT OF ANTINEOPLASTIC AND IMMUNOSUP DRUGS, INIT Status: Acute Comment: Amenable to transfusion. Tranfuse one unit 04/08/18. Continue to monitor. (5) Nausea Code(s): R11.0 - NAUSEA Status: Resolved Comment: More likely related to RUQ pain and port infection than the chemo. PRN ondansetron and phenergan. (6) Thrombocytopenia Code(s): D69.6 - THROMBOCYTOPENIA, UNSPECIFIED Status: Acute Comment: Chemo related. Continue to monitor. Will complicate surgical picture. - Plan * CXR for left basilar rales. * Continue IV abx. * HIDA pending.
--- NOTE | 2018-04-10 21:49 | RAD ---
PA AND LATERAL CHEST: 04/10/18 HISTORY: Shortness of breath. COMPARISON: Earlier examination the same day. Heart size is within normal limits. Mediastinal structures are unremarkable. Bilateral pleural effusi ons, left larger than right are noted. Some associated atelectatic change. IMPRESSION: Small bilateral pleural effusions, left larger than right with what appears to be some atelectatic ch anges. POS: [facility]
[2018-04-11 05:05] LABS: #Basophils 0.1 thou/uL (0.0-0.2); #Eosinphils 0.3 thou/uL (0.0-0.7); #Lymphocytes 0.8 thou/uL (1.20-3.40); #Monocytes 0.4 thou/uL (0.11-0.59); #Neutrophils 3.5 thou/uL (1.40-6.50); %Basophils 1.1 % (0.0-1.0); %Eosinophils 5.1 % (0.0-10.0); %Lymphocytes 16.7 % (21.0-51.0); %Neutrophils 70.2 % (42.0-75.0); Hemoglobin 7.8 g/dL (12.0-16.0); Mean Corpuscular HGB CONC 33.5 g/dL (32.0-36.0); Mean Corpuscular Hemoglobin 28.5 pg (27.0-31.0); Mean Corpuscular Volume 85.3 fL (78.0-98.0); Mean Platelet Volume 5.1 fL (7.4-10.4); Platelet Count 55 thou/uL (130-400); RBC Distribution Width 15.9 % (11.5-14.5); Red Blood Cell (RBC) Count 2.72 mill/uL (4.20-5.40)
[2018-04-11 05:27] LABS: ALT (SGPT) 13 U/L (8-55); AST (SGOT) 21 U/L (5-34); Albumin 2.9 g/dL (3.5-5.0); Alkaline Phosphatase 100 U/L (40-150); Anion Gap 12 mmol/L (10-20); BUN (Urea Nitrogen) 14 mg/dL (9.8-20.1); Bilirubin, Total 0.7 mg/dL (0.2-1.2); Calc. Creatinine Clearance 49 mL/min (70-130); Calcium 8.5 mg/dL (7.8-10.44); Carbon Dioxide 18 mmol/L (22-29); Chloride 115 mmol/L (98-107); Estimated GFR-MDRD 48; Globulin 2.8 g/dL (2.4-3.5); Glucose 88 mg/dL (70-105); Potassium 3.2 mmol/L (3.5-5.1); Protein, Total 5.7 g/dL (6.0-8.3); Sodium 142 mmol/L (136-145)
[2018-04-11] MEDS: Vancomycin HCl 1 GM in Premix Bag 1 BAG IVPB SCH (05:32)
[2018-04-11] MEDS: Piperacillin/Tazobactam 3.375 GM in Sodium Chloride 0.9% 100 ML IVPB SCH ×3 (06:34→18:28)
[2018-04-11] MEDS ORDERED: Iothalamate Meglumine 60% 50 ML VIAL FS ONE (09:55)
[2018-04-11] MEDS ORDERED: Bupivacaine/Epinephrine 0.25% 30 ML VIAL ONE (09:55)
[2018-04-11] MEDS ORDERED: Fentanyl 100 MCG/2 ML VIAL ONE ×3 (10:32→13:09)
[2018-04-11] MEDS ORDERED: SUGAMMADEX SODIUM 200 MG/2 ML VIAL ONE (12:17)
[2018-04-11] MEDS ORDERED: Ondansetron HCl/PF 4 MG/2 ML Vial IVP PRN (13:31)
[2018-04-11] MEDS ORDERED: Promethazine HCl 25 MG/ML VIAL IM PRN (13:31)
[2018-04-11] MEDS ORDERED: Promethazine HCl 25 MG/ML VIAL SLOW IVP PRN (13:31)
[2018-04-11] MEDS: Hydrochlorothiazide 25 MG TAB PO SCH (13:51)
[2018-04-11] MEDS: Lisinopril 10 MG TAB PO SCH (13:51)
[2018-04-11] MEDS: Amlodipine 10 MG TAB PO SCH (13:52)
[2018-04-11] MEDS: Sodium Chloride 0.9% 1,000 ML IV SCH (13:53)
[2018-04-11] MEDS: HYDROcodone/Acetaminophen 7.5/325 mg Tablet PO PRN ×3 (14:13→22:57)
--- NOTE | 2018-04-11 14:39 | RAD ---
CHOLANGIOGRAM IN SURGERY: Comparison: Hepatobiliary scan 04-10-18 History: Cholecystectomy. Elevated LFTs. FINDINGS/IMPRESSION: A cholangiogram was taken in surgery. Limited fluoroscopic images were provided. No obvious filling d efects were seen within the common bile duct. The contrast spills into the duodenum. There is moderat e enlargement of the common bile duct. POS: [facility]
--- NOTE | 2018-04-11 15:23 | PDOC.PN ---
- Subjective Encounter Start Date: 04/11/18 Encounter Start Time: 14:45 -: old records requested/rev Subjective: follow up after port removed, patient had cholecystectomy today -: patient is drowsy but answers questions appropriately -: Reports moderate post-op pain - Objective Resuscitation Status - Order Detail: 04/07/18 16:14 Resuscitation Status Routine Resuscitation Status: FULL: Full Resuscitation Discussed with: patient Vital Signs & Weight: Vital Signs (12 hours) Temp Pulse Resp BP BP Pulse Ox 04/11/18 14:00 98.1 F 85 16 159/75 H 95 04/11/18 13:52 87 142/71 H 04/11/18 13:51 142/71 H 04/11/18 13:30 98.0 F 87 16 142/71 H 93 L 04/11/18 07:42 94 L 04/11/18 07:00 98.2 F 90 20 161/80 H 94 L Weight Weight 58.967 kg I&O: 04/10/18 04/11/18 04/12/18 06:59 06:59 06:59 Intake Total 946 2690 Balance 946 2690 Result Diagrams: 04/11/18 04:45 04/11/18 04:45 Phys Exam - Physical Examination Constitutional: NAD HEENT: PERRLA, moist MMs Neck: no nodes Respiratory: clear to auscultation bilateral Cardiovascular: RRR, no significant murmur Gastrointestinal: soft, positive bowel sounds Musculoskeletal: no edema, pulses present Neurological: non-focal Lymphatic: no nodes Psychiatric: normal affect, A&O x 3 Skin: cap refill <2 seconds Deviation from normal: Patient appears pale Dx/Plan (1) Cholecystitis, acute Code(s): K81.0 - ACUTE CHOLECYSTITIS Status: Acute (2) Anemia due to chemotherapy Code(s): D64.81 - ANEMIA DUE TO ANTINEOPLASTIC CHEMOTHERAPY; T45.1X5A - ADVERSE EFFECT OF ANTINEOPLASTIC AND IMMUNOSUP DRUGS, INIT Status: Acute Comment: Will contine to monitor, if hgb drops below 7, will infuse another unit of PRBC. Amenable to transfusion. Tranfuse one unit 04/08/18. Continue to monitor. (3) Infection of intravenous catheter Code(s): T82.7XXA - INFECT/INFLM REACT D/T OTH CARDI/VASC DEV/IMPLNT/GRFT, INIT Status: Acute Comment: MediPort removed. Site still a litte edematous, but less tender. Continue IV Vanc and Zosyn. Cultures pending. (4) RUQ abdominal pain Code(s): R10.11 - RIGHT UPPER QUADRANT PAIN Status: Acute Comment: HIDA scan did not show evidence of a gallbladder, concerning for acute cholecystitis. Dr. Null performed cholecystectomy today. US and MRI show distended ducts. LFT's and panc enzymes normal. Maybe slightly better today. GI following. HIDA scan ordered. (5) Thrombocytopenia Code(s): D69.6 - THROMBOCYTOPENIA, UNSPECIFIED Status: Acute Comment: Chemo related. Continue to monitor. Will complicate surgical picture. (6) Uterine cancer Code(s): C55 - MALIGNANT NEOPLASM OF UTERUS, PART UNSPECIFIED Status: Acute Comment: Followed by Dr. Plascencia. Extensive LN involvement, but no major organ involvement. Ongoing chemo. Due for chemo on Monday. Will likely have to delay pending the course of the infected port and abd. pain. (7) Nausea Code(s): R11.0 - NAUSEA Status: Resolved Comment: More likely related to RUQ pain and port infection than the chemo. PRN ondansetron and phenergan. - Plan -: Monitor Hgb, infuse another unit if it drops below 7 -: Continue ABX, monitor lab work, VS -: Will need input on new access port for chemo * .
--- NOTE | 2018-04-11 15:36 | PDOC.EVN ---
Event Note - Event Note Event Note: Ma. Martin was seen today with Ms. Kat CHAMBERS in follow-up of Acalculous cholecystitis, and infected mediport. When I saw her she had recently returned from surgery to remove the gall bladder. She notes some adbominal discomfort, and some dyspnea. Agree with the physical findings documented by Ms. Stephens. Continue post- op management per General Surgery Will need to monitor her HGB, and transfuse for HGB <7.0 She was currently receiving chemotherapy- will need to discuss with Surgery and Oncology when a new central access can be placed, and when she can resume Chemotherapy. Cultures are negative so far. Continue Vancomycin and Zosyn
[2018-04-11] MEDS ORDERED: Glycopyrrolate 0.2 MG/ML 5 ML SYRINGE ONE (16:24)
[2018-04-11] MEDS ORDERED: Dexamethasone 20 MG/5 ML VIAL ONE (16:24)
[2018-04-11] MEDS ORDERED: PROPOFOL 200 MG/20 ML VIAL ONE (16:24)
[2018-04-11] MEDS ORDERED: Lidocaine 1% PF 5 ML VIAL ONE ×2 (16:24)
[2018-04-11] MEDS ORDERED: Ondansetron PF 4 MG/2 ML Vial ONE (16:24)
--- NOTE | 2018-04-11 17:57 | PRG ---
DATE OF SERVICE: 04/11/2018 SUBJECTIVE: The patient is feeling better. She is sore after surgery. Intraoperative cholangiogram performed by Dr. Null was negative. OBJECTIVE: VITAL SIGNS: Temperature 98.1, pulse 85, respiratory rate 16, and blood pressure 159/75. CHEST: Clear. CARDIOVASCULAR: Regular rate and rhythm. ABDOMEN: Soft, tender, without rebound or guarding. RECTAL: Deferred. LABORATORY DATA: Shows a white blood cell count of 5, hemoglobin 7.8, and hematocrit 23.2. Chemistry showed potassium 3.2 and CO2 of 18. LFTs are totally normal. ASSESSMENT: 1. Abnormal CT of the common bile duct - IOC was negative. 2. Acute cholecystitis - status post cholecystectomy. RECOMMENDATIONS: 1. Continue with postop care. 2. No further recommendations from GI standpoint. 3. We will sign off. Job ID: [id number]
[2018-04-12] MEDS: Piperacillin/Tazobactam 3.375 GM in Sodium Chloride 0.9% 100 ML IVPB SCH ×5 (00:12→23:52)
[2018-04-12] MEDS: HYDROcodone/Acetaminophen 7.5/325 mg Tablet PO PRN ×4 (03:04→17:43)
[2018-04-12] MEDS: Vancomycin HCl 1 GM in Premix Bag 1 BAG IVPB SCH (04:26)
[2018-04-12] MEDS: Sodium Chloride 0.9% 1,000 ML IV SCH ×2 (04:34→21:00)
[2018-04-12 05:16] LABS: ALT (SGPT) 20 U/L (8-55); AST (SGOT) 37 U/L (5-34); Albumin 3.2 g/dL (3.5-5.0); Alkaline Phosphatase 111 U/L (40-150); Anion Gap 14 mmol/L (10-20); BUN (Urea Nitrogen) 16 mg/dL (9.8-20.1); Bilirubin, Total 0.8 mg/dL (0.2-1.2); Calc. Creatinine Clearance 43 mL/min (70-130); Calcium 8.7 mg/dL (7.8-10.44); Carbon Dioxide 17 mmol/L (22-29); Chloride 113 mmol/L (98-107); Estimated GFR-MDRD 41; Globulin 3.3 g/dL (2.4-3.5); Glucose 112 mg/dL (70-105); Potassium 3.1 mmol/L (3.5-5.1); Protein, Total 6.5 g/dL (6.0-8.3); Sodium 141 mmol/L (136-145)
[2018-04-12 05:18] LABS: #Lymphocytes 0.9 thou/uL (1.20-3.40); #Monocytes 0.6 thou/uL (0.11-0.59); #Neutrophils 4.9 thou/uL (1.40-6.50); %Basophils 0.3 % (0.0-1.0); %Eosinophils 0.1 % (0.0-10.0); %Lymphocytes 14.3 % (21.0-51.0); %Neutrophils 76.2 % (42.0-75.0); Hemoglobin 8.1 g/dL (12.0-16.0); MDiff Complete? YES; Mean Corpuscular HGB CONC 33.5 g/dL (32.0-36.0); Mean Corpuscular Hemoglobin 28.6 pg (27.0-31.0); Mean Corpuscular Volume 85.1 fL (78.0-98.0); Mean Platelet Volume 5.8 fL (7.4-10.4); PLT Morphology Comment Appears Decreased; Platelet Count 53 thou/uL (130-400); RBC Distribution Width 16.3 % (11.5-14.5); Red Blood Cell (RBC) Count 2.84 mill/uL (4.20-5.40); Schistocytes SLIGHT = 2-5 cells (100X) (0-1/hpf); White Blood Cell (WBC) Count 6.4 thou/uL (4.8-10.8)
[2018-04-12] MEDS: Hydrochlorothiazide 25 MG TAB PO SCH (08:28)
[2018-04-12] MEDS: Lisinopril 10 MG TAB PO SCH (08:30)
[2018-04-12] MEDS: Amlodipine 10 MG TAB PO SCH (08:30)
[2018-04-12] MEDS: Potassium Chloride 20 MEQ TAB PO SCH ×2 (10:54→13:04)
--- NOTE | 2018-04-12 12:27 | PDOC.PN ---
- Subjective Encounter Start Date: 04/12/18 Encounter Start Time: 12:25 Ms. Martin was seen today in follow-up of Acalculous cholecystitis, and infected mediport. Today she feels ok. She was able to eat without nausea or vomiting. She noted some right sided abdominal discomfort last night, but this has improved. She denies any pain at the mediport site. - Objective Resuscitation Status - Order Detail: 04/07/18 16:14 Resuscitation Status Routine Resuscitation Status: FULL: Full Resuscitation Discussed with: patient MAR Reviewed: Yes Vital Signs & Weight: Vital Signs (12 hours) Temp Pulse Resp BP BP BP Pulse Ox 04/12/18 12:00 98.4 F 79 16 144/68 H 98 04/12/18 11:15 95 04/12/18 08:30 80 144/69 H 04/12/18 08:00 98.3 F 80 20 144/69 H 97 04/12/18 04:27 98.4 F 77 16 154/74 H 93 L Weight Weight 130 lb I&O: 04/11/18 04/12/18 04/13/18 06:59 06:59 06:59 Intake Total 2690 2320 Balance 2690 2320 Result Diagrams: 04/12/18 04:44 04/12/18 04:44 Phys Exam - Physical Examination HEENT: PERRLA Respiratory: no wheezing, no rales, no rhonchi, clear to auscultation bilateral Cardiovascular: RRR, no significant murmur, no rub Gastrointestinal: soft, non-tender, no distention, positive bowel sounds Musculoskeletal: pulses present, edema present 2+ pitting edema, bilaterally Neurological: non-focal, moves all 4 limbs Dx/Plan (1) Acute acalculous cholecystitis Code(s): K81.0 - ACUTE CHOLECYSTITIS Status: Acute (2) Anemia due to chemotherapy Code(s): D64.81 - ANEMIA DUE TO ANTINEOPLASTIC CHEMOTHERAPY; T45.1X5A - ADVERSE EFFECT OF ANTINEOPLASTIC AND IMMUNOSUP DRUGS, INIT Status: Chronic Comment: Will contine to monitor, if hgb drops below 7, will infuse another unit of PRBC. Amenable to transfusion. Tranfuse one unit 04/08/18. Continue to monitor. (3) Infection of intravenous catheter Code(s): T82.7XXA - INFECT/INFLM REACT D/T OTH CARDI/VASC DEV/IMPLNT/GRFT, INIT Status: Acute Comment: MediPort removed. Site still a litte edematous, but less tender. Continue IV Vanc and Zosyn. Cultures pending. (4) Uterine cancer Code(s): C55 - MALIGNANT NEOPLASM OF UTERUS, PART UNSPECIFIED Status: Acute Comment: Followed by Dr. Plascencia. Extensive LN involvement, but no major organ involvement. Ongoing chemo. Due for chemo on Monday. Will likely have to delay pending the course of the infected port and abd. pain. (5) Hypokalemia Code(s): E87.6 - HYPOKALEMIA Status: Acute - Plan * Infected Mediport- Cultures are negative so far- Will continue IV antibiotics until the final culture results available * IF cultures are negative, then can consider placing a new central access * Acalculous cholecystitis- she is s/p lap cecelia- clinically stable and tolerating p.o. * Anemia- likely due to chemotherapy- stable HGB is 8.1 today * Hypokalemia- will replace Potassium.
[2018-04-12] MEDS ORDERED: Potassium Chloride 20 MEQ TAB PO SCH (13:00)
--- NOTE | 2018-04-12 14:47 | PDOC.OP ---
Operative Note - Operative Note Operative Note: PROCEDURE: Laparoscopic cholecystectomy with intraoperative cholangiogram SURGEON: Tadeo Null M.D. DATE OF PROCEDURE: 04/11/2018 PREOPERATIVE DIAGNOSIS: Acalculous cholecystitis, possible choledocholithiasis, possible right chest abscess POSTOPERATIVE DIAGNOSIS: Acalculous cholecystitis, right chest abscess HISTORY: Patient with metastatic uterine cancer who presented to the hospital with sepsis, right-sided abdominal pain and right chest and neck pain. She was found to have evidence of an infected Mediport which was removed but the swelling and redness in her right chest persisted. She had no stones on ultrasound but did have dilation of the intra-and extrahepatic bile ducts, with some sludge in the distal common bile duct by MRCP. On HIDA scan she had nonfilling of her gallbladder consistent with acalculous cholecystitis. Recommendation was made to proceed to the operating room for laparoscopic cholecystectomy with intraoperative cholangiogram, and possible I&D of right chest wall abscess. FINDINGS: Very distended gallbladder with omental adhesions. Normal intraoperative cholangiogram. Right chest wall abscess. PROCEDURE IN DETAIL: After informed consent was obtained and appropriate preoperative antibiotics were administered, the patient was taken to the operating room and placed in the supine position and general endotracheal anesthesia was administered. The stomach was decompressed with an OG tube and the abdomen was prepped and draped in standard sterile fashion. Local anesthesia was infused to the skin and subcutaneous tissues at the umbilical level. A transverse skin incision was made. The fascia was elevated and a Veress needle was placed into the abdominal cavity without difficulty. Opening pressure was less than 5 and carbon dioxide gas easily insufflated to an intra- abdominal pressure of 15, which the patient tolerated well. The Veress needle was withdrawn and a Liscomb port advanced under direct vision. The abdominal cavity was carefully examined. There was no evidence of Veress needle or of trocar injury. Local anesthesia was infused to the skin and subcutaneous tissues at the epigastric, right upper quadrant, and right lateral abdominal sites and trocars were placed under direct vision of the laparoscope. The gallbladder was extremely distended and had to be aspirated in order to grasp. Over 100 mL of very dark bile was aspirated. The fundus of the gallbladder was then grasped and retracted superiorly and omental adhesions stripped inferiorly revealing the infundibulum. The infundibulum was grasped and retracted laterally. The serosa was stripped inferiorly at the level of the neck of the gallbladder exposing the cystic duct and artery which were traced clearly to their insertion in the gallbladder. These were dissected free circumferentially and the cystic duct was clipped at the level of the neck of the gallbladder. The cystic artery was clipped but not divided. An incision was made in the cystic duct inferior to the clip and the cystic duct was palpated with no stones palpable. Clear bile was seen to flow from the cystic duct incision. A cholangiogram catheter was introduced and placed into the cystic duct and secured with a clip. A cholangiogram was obtained which showed an adequate length of cystic duct. There was normal filling of the common bile duct with free flow of contrast into the duodenum. There was normal retrograde flow into the common hepatic duct beyond the level of the bifurcation without filling defects. The cholangiogram catheter was removed and the cystic duct clipped below the incision in the cystic duct. The cystic duct was divided between these clips and the previously placed clip. The cystic artery was clipped and divided between the previously placed clips. The gallbladder was then dissected free of the gallbladder bed using hook electrocautery. Prior to complete removal of the gallbladder from the gallbladder bed, the area of the cystic duct and artery stumps was examined. The clips were in good position completely across these structures and there was no bleeding and no leakage of bile. The gallbladder was then placed into an EndoCatch bag and drawn out through the epigastric incision. The epigastric trocar was replaced and the operative site easily irrigated to clear. There was no significant bleeding or spillage of bile. The epigastric trocar was removed and the fascia closed under direct laparoscopic vision with a 0 Vicryl suture on a GraNee needle in a figure -of-eight manner with excellent technical result. The right upper quadrant and right lateral abdominal trocars were removed and hemostasis verified. Carbon dioxide gas was allowed to desufflate through the umbilical trocar which was then removed. The skin incisions were closed with 4-0 subcuticular Monocryl sutures and Dermabond dressings were placed. Attention was then turned to the right chest. An ultrasound was used to examine the area of swelling and a well defined fluid collection was identified consistent with an abscess. The skin was prepped with alcohol and an 18-gauge needle advanced under direct ultrasound guidance into the fluid cavity and aspiration carried out, but only a small amount of very thick purulent fluid was able to be aspirated. Therefore an incision was made into the abscess cavity which was completely drained of a large amount of thick pus. The [place] drain was placed into the abscess cavity and secured to the skin with a nylon suture and a gauze dressing placed. The patient was extubated and taken to the recovery room in good condition. There were no complications. ESTIMATED BLOOD LOSS: Minimal. SPECIMEN : Gallbladder and contents. Right chest wall abscess pus for Gram stain and culture
--- NOTE | 2018-04-12 17:53 | CON ---
DATE OF CONSULTATION: REASON FOR CONSULTATION: Uterine cancer. HISTORY OF PRESENT ILLNESS: A 57-year-old female with metastatic uterine cancer, currently on Doxil and Avastin chemotherapy, presenting to [facility] in [place] with complaint of fever and temperature of 101, that had not improved at home with Tylenol and ibuprofen. She also complained of some swelling in the neck with enlarging lymph nodes, that have enlarged and reduced following chemotherapy. She also reports nausea, vomiting, and diarrhea on the day of presentation. Upon admission to the hospital, it is noticed that there was some edema in the right lateral neck and supraclavicular area emanating from the right subclavian tunneled Mediport, which had surrounding erythema, warmth and tenderness. The patient was started on vancomycin and zosyn at the outside facility and transferred to [facility] and these medications were continued. The tenderness continued around her port site without any improvement and so decision was made to remove the port. During admission, the patient also had right upper quadrant pain and ultrasound showed new biliary ductal dilatation and main pancreatic ductal dilatation obstructing near the ampulla. HIDA scan shows nonvisualization of the gallbladder concerning of acute cholecystitis. The patient is now status post cholecystectomy on April 11, 2018. She complains of continued soreness of the port site and operative site for the cholecystectomy, but she states both of these are slowly improving. She denies any nausea, vomiting, or diarrhea and her last bowel movement was prior to her cholecystectomy, thus she does not report feeling constipated. She currently remains on oxygen. REVIEW OF SYSTEMS: A 10-point review of systems negative except as per HPI. PAST MEDICAL HISTORY: Metastatic uterine cancer. PAST SURGICAL HISTORY: Appendectomy, total abdominal hysterectomy and bilateral salpingo-oophorectomy, lymph node dissection, Mediport insertion and removal, and cholecystectomy. FAMILY HISTORY: Noncontributory at this point. SOCIAL HISTORY: Nonsmoker, nondrinker, nondrug user. ALLERGIES: SULFA MEDICINES. PHYSICAL EXAMINATION: VITAL SIGNS: Temperature 98.3, pulse 80, respirations 20, saturating 97% on 3 L by nasal cannula, blood pressure 144/69. GENERAL APPEARANCE: The patient is sitting up in bed, in no acute distress, eating breakfast. HEENT: Normocephalic, atraumatic. Sclerae anicteric. NECK: No significant edema. Mediport remove site in right chest is currently dressed with minimal tenderness to palpation. CARDIAC: Normal S1, S2. Regular rate and rhythm. LUNGS: Clear to auscultation bilaterally other than mild crackles in the right lower lung. ABDOMEN: Soft, nondistended, and nontender including no right upper quadrant tenderness. EXTREMITIES: Reveal no edema. SKIN: Warm and dry. NEUROLOGIC: Nonfocal. PSYCHIATRIC: Awake, alert, and oriented x3. LABORATORY DATA: White blood cell 6.4, hemoglobin 8.1, platelets 53, neutrophils 76.2%. Sodium 141, potassium 3.1, BUN 16, creatinine 1.32, total bilirubin 0.8. AST 37, ALT 20, alkaline phosphatase 111. Albumin 3.2. IMAGING DATA: Right upper quadrant ultrasound shows new biliary ductal dilatation and main pancreatic ductal dilatation with an obstructing process near the ampulla. HIDA scan shows nonvisualization of the gallbladder concerning for acute cholecystitis. ASSESSMENT AND PLAN: A 57-year-old female with metastatic uterine cancer, currently on Doxil and Avastin chemotherapy, presenting with fever and Mediport infection, status post port removal, and on vancomycin and zosyn. During admission, the patient was also found to have acalculous cholecystitis, status post cholecystectomy. She is healing well from both surgeries and infection is improving on antibiotics. She does remain on oxygen; however, is saturating very well and can be likely be tolerated off this as well. The patient missed her dose of Avastin on Monday, April 10, and is due again for Doxil and Avastin on April 24. At this time, we would recommend not giving her the missed dose of Avastin and likely, we will hold this for 1 to 2 cycles given recent surgery, as Avastin can affect wound healing. The patient will likely be fit enough to receive chemotherapy on the and may require a PICC line; however, should she continues to improve, we can also place a new Mediport prior to discharge. We will continue to follow this patient with you for final decision on new Mediport versus PICC line. Job ID: [id number]
[2018-04-13 03:22] LABS: Vancomycin, Trough 19.2 ug/mL
[2018-04-13] MEDS: Vancomycin HCl 1 GM in Premix Bag 1 BAG IVPB SCH (04:12)
[2018-04-13] MEDS: Piperacillin/Tazobactam 3.375 GM in Sodium Chloride 0.9% 100 ML IVPB SCH ×4 (05:26→23:06)
[2018-04-13] MEDS: Hydrochlorothiazide 25 MG TAB PO SCH (08:38)
[2018-04-13] MEDS: HYDROcodone/Acetaminophen 7.5/325 mg Tablet PO PRN (08:38)
[2018-04-13] MEDS: Potassium Chloride 20 MEQ TAB PO SCH ×3 (08:38→16:14)
[2018-04-13] MEDS: Amlodipine 10 MG TAB PO SCH (08:38)
[2018-04-13] MEDS: Lisinopril 10 MG TAB PO SCH (08:38)
[2018-04-13] MEDS: Sodium Chloride 0.9% 1,000 ML IV SCH (11:31)
[2018-04-13] MEDS ORDERED: Iopamidol 370 76% 100 ML VIAL ONE (13:33)
[2018-04-13] MEDS ORDERED: Furosemide 40 MG/4 ML VIAL SLOW IVP SCH (15:30)
--- NOTE | 2018-04-13 15:33 | PDOC.PN ---
- Subjective Encounter Start Date: 04/13/18 Encounter Start Time: 15:32 Ms. Martin was seen today in follow-up of infected mediport, and cholecystitis. She is complaining of feeling short of breath. She says it is persistent, and much worse with ambulation. - Objective Resuscitation Status - Order Detail: 04/07/18 16:14 Resuscitation Status Routine Resuscitation Status: FULL: Full Resuscitation Discussed with: patient MAR Reviewed: Yes Vital Signs & Weight: Vital Signs (12 hours) Temp Pulse Resp BP BP Pulse Ox 04/13/18 11:41 98.4 F 90 18 168/77 H 98 04/13/18 08:49 96 04/13/18 08:38 90 04/13/18 07:35 99.3 F 90 20 171/80 H 92 L 04/13/18 04:00 99.2 F 91 16 178/81 H 91 L Weight Weight 130 lb I&O: 04/12/18 04/13/18 04/14/18 06:59 06:59 06:59 Intake Total 2320 3385 Balance 2320 3385 Result Diagrams: 04/12/18 04:44 04/12/18 04:44 Phys Exam - Physical Examination HEENT: PERRLA Respiratory: no rales, no rhonchi + coarse breath sounds bilaterally Cardiovascular: RRR, no significant murmur, no rub Gastrointestinal: soft, non-tender, no distention, positive bowel sounds Musculoskeletal: pulses present, edema present 2+ pitting edema bilaterally Neurological: non-focal, moves all 4 limbs Dx/Plan (1) Infection of intravenous catheter Code(s): T82.7XXA - INFECT/INFLM REACT D/T OTH CARDI/VASC DEV/IMPLNT/GRFT, INIT Status: Acute Comment: MediPort removed. Site still a litte edematous, but less tender. Continue IV Vanc and Zosyn. Cultures pending. (2) Acute acalculous cholecystitis Code(s): K81.0 - ACUTE CHOLECYSTITIS Status: Acute (3) Anemia due to chemotherapy Code(s): D64.81 - ANEMIA DUE TO ANTINEOPLASTIC CHEMOTHERAPY; T45.1X5A - ADVERSE EFFECT OF ANTINEOPLASTIC AND IMMUNOSUP DRUGS, INIT Status: Chronic Comment: Will contine to monitor, if hgb drops below 7, will infuse another unit of PRBC. Amenable to transfusion. Tranfuse one unit 04/08/18. Continue to monitor. (4) Uterine cancer Code(s): C55 - MALIGNANT NEOPLASM OF UTERUS, PART UNSPECIFIED Status: Acute Comment: Followed by Dr. Plascencia. Extensive LN involvement, but no major organ involvement. Ongoing chemo. Due for chemo on Monday. Will likely have to delay pending the course of the infected port and abd. pain. (5) Hypokalemia Code(s): E87.6 - HYPOKALEMIA Status: Acute (6) Dyspnea Code(s): R06.00 - DYSPNEA, UNSPECIFIED Status: Acute - Plan * Acute Cholecystitis- she is progressing well after the lap cecelia * Infected mediport- discussed with Dr. Null- She will remove the drain in about a week, and this can be done as an outpatient. She does not want to replace the mediport until the area has completely healed- possibly in 3 weeks * I spoke with Dr. Nolasco regarding the situation of the infected mediport. Cultures are negative so far, he suggests placing her on Minocin for 7 days, and a PICC line can be placed now- will discuss with Dr. Last * Dyspnea- I suspect volume overload, from IV fluids- however, given her cancer history will need to rule out PE - Will check a CTA. * Hypokalemia- continue to supplement potassium
--- NOTE | 2018-04-13 19:19 | CT ---
CHEST CT ANGIOGRAM WITH 3D RENDERIN04/13/18 HISTORY: 57-year-old female with history of shortness of breath, cancer patient. Moderate bilateral pleural effusions as well as bibasilar pleural based parenchymal changes evidence for subsegmental atelectasis, worse on the left side. There are fairly extensive bilateral perihilar interstitial and alveolar opacity changes and ground glass opacity changes, evidence for perihilar ed willy versus atypical bilateral pneumonia or pneumonitis. There is some fat stranding in the region of the operative bed at expected location of the gallbladder fossa, evidence for recent prior surgery wi th some surgical clips. Small circumscribed low attenuation in the right lobe of the liver, evidence for a cyst. Some small indistinct retroperitoneal and periaortic lymph nodes without overt adenopathy . Scattered intraperitoneal free air consistent with recent prior cholecystectomy on 04/11/18. IMPRESSION: No convincing CT evidence for acute pulmonary embolism. Evidence for free intraperitoneal air consist ent with recent cholecystectomy. Fairly extensive bilateral perihilar interstitial and alveolar and g round glass opacity changes with concern for bilateral edema and/or bilateral atypical pneumonia or p neumonitis. Moderate bilateral pleural effusions as well as inferior lower pleural based parenchymal changes. Evidence for partial atelectasis. Small right lobe of liver cyst. POS: [facility]
[2018-04-14] MEDS: Vancomycin HCl 1 GM in Premix Bag 1 BAG IVPB SCH (04:17)
[2018-04-14] MEDS ORDERED: Furosemide 40 MG/4 ML VIAL SLOW IVP SCH (05:00)
[2018-04-14] MEDS: Piperacillin/Tazobactam 3.375 GM in Sodium Chloride 0.9% 100 ML IVPB SCH (05:56)
[2018-04-14 07:14] LABS: Anion Gap 13 mmol/L (10-20); BUN (Urea Nitrogen) 16 mg/dL (9.8-20.1); Calc. Creatinine Clearance 40 mL/min (70-130); Carbon Dioxide 18 mmol/L (22-29); Chloride 114 mmol/L (98-107); Estimated GFR-MDRD 38; Glucose 90 mg/dL (70-105); Potassium 3.4 mmol/L (3.5-5.1); Sodium 142 mmol/L (136-145)
--- NOTE | 2018-04-14 08:19 | PDOC.PN ---
- Subjective Encounter Start Date: 04/14/18 Encounter Start Time: 08:17 Ma. Martin was seen today in follow-up of infected mediport, and cholecystitis. She is breathing better today. CTA results were noted last night. - Objective Resuscitation Status - Order Detail: 04/07/18 16:14 Resuscitation Status Routine Resuscitation Status: FULL: Full Resuscitation Discussed with: patient MAR Reviewed: Yes Vital Signs & Weight: Vital Signs (12 hours) Pulse BP Pulse Ox 04/14/18 05:55 89 167/78 H 04/14/18 00:00 92 L Weight Weight 130 lb I&O: 04/13/18 04/14/18 04/15/18 06:59 06:59 06:59 Intake Total 3385 Balance 3385 Result Diagrams: 04/12/18 04:44 04/14/18 06:43 Phys Exam - Physical Examination HEENT: PERRLA Respiratory: no wheezing, no rales, no rhonchi, clear to auscultation bilateral Cardiovascular: RRR, no significant murmur, no rub Gastrointestinal: soft, non-tender, no distention, positive bowel sounds Musculoskeletal: edema present 2+ pitting edema in both lower extremities Dx/Plan (1) Infection of intravenous catheter Code(s): T82.7XXA - INFECT/INFLM REACT D/T OTH CARDI/VASC DEV/IMPLNT/GRFT, INIT Status: Acute Comment: MediPort removed. Site still a litte edematous, but less tender. Continue IV Vanc and Zosyn. Cultures pending. (2) Acute acalculous cholecystitis Code(s): K81.0 - ACUTE CHOLECYSTITIS Status: Acute (3) Anemia due to chemotherapy Code(s): D64.81 - ANEMIA DUE TO ANTINEOPLASTIC CHEMOTHERAPY; T45.1X5A - ADVERSE EFFECT OF ANTINEOPLASTIC AND IMMUNOSUP DRUGS, INIT Status: Chronic Comment: Will contine to monitor, if hgb drops below 7, will infuse another unit of PRBC. Amenable to transfusion. Tranfuse one unit 04/08/18. Continue to monitor. (4) Uterine cancer Code(s): C55 - MALIGNANT NEOPLASM OF UTERUS, PART UNSPECIFIED Status: Acute Comment: Followed by Dr. Plascencia. Extensive LN involvement, but no major organ involvement. Ongoing chemo. Due for chemo on Monday. Will likely have to delay pending the course of the infected port and abd. pain. (5) Hypokalemia Code(s): E87.6 - HYPOKALEMIA Status: Acute (6) Dyspnea Code(s): R06.00 - DYSPNEA, UNSPECIFIED Status: Acute (7) Acute renal failure Status: Acute - Plan * Infected Mediport- will discontinue Zosyn and VAncomycin- continue Minocin * Dyspnea- improved- likely from volume overload- will give another dose of Lasix this morning * Acute renal failure- her creatinine has been steadily climbing- despite IV hydration- It may be due to the antibiotics, she had an abdominal ultrasound earlier during the admission which did not demonstrate hydronephrosis- will consult Nephrology, discontinue HCTZ, and hold Lisinopril for now * Patient will have PICC line placed for access to receive chemotherapy * Acute cholecystitis- resolved after lap cecelia * HTN- blood pressure is a bit elevated- will continue Amlodipine and PRN medications.
[2018-04-14] MEDS: Potassium Chloride 20 MEQ TAB PO SCH ×3 (09:17→17:46)
[2018-04-14] MEDS: Amlodipine 10 MG TAB PO SCH (09:19)
--- NOTE | 2018-04-14 10:53 | SPC ---
RIGHT UPPER EXTREMITY PICC LINE INSERTION: HISTORY: Patient in need of senior care IV antibiotics. Infected MediPort catheter. TECHNIQUE: Informed consent was obtained from the patient. The right basilic vein was localized using fluorosco py and injected IV contrast. Radiation dosimetry is 1.7 minutes of fluoroscopy and DAP of 1.43 uGy*^cm2. Informed consent was obtained. The right basilic vein was localized. The overlying skin was prepped and draped in the usual sterile manner. A 1% Lidocaine solution was used to anesthetize the overlyi ng soft tissues. A small dermatotomy was made. The right basilic vein was accessed. An 0.018 wire was introduced. A peelaway sheath was placed over the wire. A double-lumen PICC line was cut to 44 cm with distal tip at the SVC/right atrial junction placed. IMPRESSION: Successful placement of a right upper extremity double lumen PICC line. POS: [facility]
[2018-04-14] MEDS: Ondansetron PF 4 MG/2 ML Vial IVP PRN (17:39)
[2018-04-14] MEDS: Acetaminophen 325 MG TAB PO PRN (20:21)
[2018-04-15 05:42] LABS: Hemoglobin 5.5 g/dL (12.0-16.0)
[2018-04-15 05:43] LABS: Anion Gap 11 mmol/L (10-20); BUN (Urea Nitrogen) 23 mg/dL (9.8-20.1); Calc. Creatinine Clearance 40 mL/min (70-130); Calcium 8.2 mg/dL (7.8-10.44); Carbon Dioxide 20 mmol/L (22-29); Chloride 115 mmol/L (98-107); Estimated GFR-MDRD 38; Glucose 81 mg/dL (70-105); Sodium 142 mmol/L (136-145)
[2018-04-15 06:06] LABS: #Basophils 0.1 thou/uL (0.0-0.2); #Eosinphils 0.1 thou/uL (0.0-0.7); #Lymphocytes 1.1 thou/uL (1.20-3.40); #Monocytes 0.6 thou/uL (0.11-0.59); #Neutrophils 4.7 thou/uL (1.40-6.50); %Basophils 1.3 % (0.0-1.0); %Eosinophils 1.9 % (0.0-10.0); %Lymphocytes 16.1 % (21.0-51.0); %Monocytes 9.1 % (0.0-10.0); %Neutrophils 71.6 % (42.0-75.0); Anisocytosis SLIGHT = 6-15 cells (100X) (0-5/hpf); MDiff Complete? YES; Mean Corpuscular HGB CONC 33.8 g/dL (32.0-36.0); Mean Corpuscular Hemoglobin 28.6 pg (27.0-31.0); Mean Corpuscular Volume 84.7 fL (78.0-98.0); Mean Platelet Volume 6.1 fL (7.4-10.4); PLT Morphology Comment Appears Decreased; Platelet Count 37 thou/uL (130-400); Polychromasia SLIGHT = 2-3 cells (100X) (0-2/hpf); Red Blood Cell (RBC) Count 1.91 mill/uL (4.20-5.40); Schistocytes SLIGHT = 2-5 cells (100X) (0-1/hpf); White Blood Cell (WBC) Count 6.6 thou/uL (4.8-10.8)
--- NOTE | 2018-04-15 08:41 | PDOC.PN ---
- Subjective Encounter Start Date: 04/15/18 Encounter Start Time: 08:40 Ma. Martin was seen today in follow-up of Infected mediport, and acute renal failure. She says last night she was feeling a bit weak and nauseated. She denies any abdominal pain. She notes some soreness where the mediport was removed. - Objective Resuscitation Status - Order Detail: 04/07/18 16:14 Resuscitation Status Routine Resuscitation Status: FULL: Full Resuscitation Discussed with: patient MAR Reviewed: Yes Vital Signs & Weight: Vital Signs (12 hours) Temp Pulse Resp BP Pulse Ox 04/15/18 08:00 98.9 F 82 20 173/78 H 98 Weight Weight 130 lb Result Diagrams: 04/15/18 05:00 04/15/18 05:00 Phys Exam - Physical Examination HEENT: PERRLA Respiratory: no wheezing, no rales, no rhonchi, clear to auscultation bilateral + coarse breath sounds Cardiovascular: RRR, no significant murmur, no rub Gastrointestinal: soft, non-tender, no distention, positive bowel sounds Musculoskeletal: pulses present, edema present 2+ pitting edema of both lower extremities Neurological: non-focal Dx/Plan (1) Infection of intravenous catheter Code(s): T82.7XXA - INFECT/INFLM REACT D/T OTH CARDI/VASC DEV/IMPLNT/GRFT, INIT Status: Acute Comment: MediPort removed. Site still a litte edematous, but less tender. Continue IV Vanc and Zosyn. Cultures pending. (2) Acute acalculous cholecystitis Code(s): K81.0 - ACUTE CHOLECYSTITIS Status: Acute (3) Anemia due to chemotherapy Code(s): D64.81 - ANEMIA DUE TO ANTINEOPLASTIC CHEMOTHERAPY; T45.1X5A - ADVERSE EFFECT OF ANTINEOPLASTIC AND IMMUNOSUP DRUGS, INIT Status: Chronic Comment: Will contine to monitor, if hgb drops below 7, will infuse another unit of PRBC. Amenable to transfusion. Tranfuse one unit 04/08/18. Continue to monitor. (4) Uterine cancer Code(s): C55 - MALIGNANT NEOPLASM OF UTERUS, PART UNSPECIFIED Status: Acute Comment: Followed by Dr. Plascencia. Extensive LN involvement, but no major organ involvement. Ongoing chemo. Due for chemo on Monday. Will likely have to delay pending the course of the infected port and abd. pain. (5) Hypokalemia Code(s): E87.6 - HYPOKALEMIA Status: Acute (6) Dyspnea Code(s): R06.00 - DYSPNEA, UNSPECIFIED Status: Acute (7) Acute renal failure Status: Acute - Plan * Infected Mediport- she has been transitioned to Minocin- all cultures are negative so far * Dyspnea- likely from volume overload- will give an additional dose of Lasix today * Acute renal failure- renal function has plateaued- Nephrology consulted * Anemia- in malignancy- agree with transfusion * HTN- Lisinopril is on hold- so far in a stable range * Cholecystitis- resolved. * Hypokalemia- replaced- will cut back on oral potassium- may consider discontinuing HCTZ permanently
[2018-04-15 09:06] LABS: Creatinine, Urine 68.38 mg/dL (47-110)
[2018-04-15] MEDS: Potassium Chloride 20 MEQ TAB PO SCH (09:08)
[2018-04-15] MEDS: Amlodipine 10 MG TAB PO SCH (09:52)
[2018-04-15] MEDS: Acetaminophen 325 MG TAB PO PRN ×2 (11:50→20:34)
[2018-04-15] MEDS ORDERED: Furosemide 40 MG/4 ML VIAL SLOW IVP SCH (13:00)
[2018-04-15] MEDS ORDERED: cloNIDine 0.1 MG TAB PO PRN ×2 (17:06→17:08)
[2018-04-15 19:38] LABS: #Eosinphils 0.2 thou/uL (0.0-0.7); #Lymphocytes 1.4 thou/uL (1.20-3.40); #Monocytes 0.8 thou/uL (0.11-0.59); #Neutrophils 7.2 thou/uL (1.40-6.50); %Basophils 0.5 % (0.0-1.0); %Eosinophils 1.7 % (0.0-10.0); %Lymphocytes 14.3 % (21.0-51.0); %Monocytes 8.2 % (0.0-10.0); %Neutrophils 75.3 % (42.0-75.0); Hemoglobin 8.8 g/dL (12.0-16.0); Mean Corpuscular HGB CONC 34.3 g/dL (32.0-36.0); Mean Corpuscular Hemoglobin 29.1 pg (27.0-31.0); Mean Corpuscular Volume 85.1 fL (78.0-98.0); Mean Platelet Volume 8.5 fL (7.4-10.4); Platelet Count 38 thou/uL (130-400); RBC Distribution Width 15.8 % (11.5-14.5); Red Blood Cell (RBC) Count 2.97 mill/uL (4.20-5.40); White Blood Cell (WBC) Count 9.5 thou/uL (4.8-10.8)
--- NOTE | 2018-04-15 21:27 | CON ---
DATE OF CONSULTATION: 04/14/2018 CONSULTING PHYSICIAN: Doug Staples MD REQUESTING PHYSICIAN: Fred Salgado MD REASON FOR CONSULTATION: Acute kidney injury. IMPRESSION: 1. Acute kidney injury. This is likely multifactorial including, but not limited to these potential etiologies. a. Hemodynamically mediated in the event of intraoperative relative hypotension. b. Inflammatory process at the kidney level due to medications including vancomycin and Zosyn. c. Potential effect of contrast, but this has not really manifested and probably should show up by tomorrow. d. Cannot completely rule out obstructive uropathy; though this is less likely. 2. Metabolic acidosis. 3. Generalized edema rule out nephrotic syndrome, especially in the context of solid organ tumor. PLAN: 1. Spot urine protein and creatinine to assess the degree of proteinuria. 2. I do agree withholding all antibiotics at this point as well as holding lisinopril and diuretics. 3. Renally dose all medications and avoid potentially nephrotoxic agents. 4. Replete potassium. 5. Further management will be dependent on the clinical course. If the patient's creatinine continues to deteriorate, we will recommend imaging studies to rule out obstructive uropathy. HISTORY OF PRESENT ILLNESS: This is a 57-year-old nice female patient with uterine cancer, metastatic to the lymph nodes, who presented here with fever, did undergo cholecystectomy laparoscopically on the . The patient's creatinine has been hovering around 1.16; however, today, creatinine has gone up to 1.42. As a result of these findings, decision has been taken to involve Renal Management of this case. Decision has already been taken to withhold vancomycin and Zosyn as well as hold diuretics and JIMBO inhibitors. PAST MEDICAL HISTORY: Significant for, 1. Metastatic uterine carcinoma. 2. Hypertension. REVIEW OF SYSTEMS: As documented in the body of the history. All other systems were reviewed and found not to be significantly related to presenting illness. FAMILY HISTORY: No family history of kidney disease. SOCIAL HISTORY: No alcohol, no tobacco, no illicit drug use. ALLERGIES: SULFA. PHYSICAL EXAMINATION: GENERAL: The patient was found not to be in any obvious respiratory distress, not able to be following. VITAL SIGNS: Afebrile, temperature 97.8, pulse 95, respiratory rate of 20, O2 sat of 95% and blood pressure is . HEENT: Examination unremarkable. Moist oral mucosa. No conjunctival injection. No icterus. NECK: Supple. CARDIOVASCULAR SYSTEM: First and second heart sounds were heard. RESPIRATORY SYSTEM: Clear to auscultation. DIGESTIVE SYSTEM: Revealed a benign abdomen. EXTREMITIES: Showed 2+ to 3+ bilateral lower extremity edema. SKIN: No new bruise or rash. SUMMARY: 57-year-old female patient, who presented here with fever, now experiencing rise in creatinine necessitating some adjustments in the patient's medications. Thank you for this consultation. We will follow with you. Job ID: [id number]
--- NOTE | 2018-04-16 00:14 | PRG ---
DATE OF SERVICE: 04/15/2018 SUBJECTIVE: The patient was seen and examined today with no new complaints. Noted with the following. OBJECTIVE: VITAL SIGNS: Afebrile, temperature 99.6; pulse 89; respiratory rate of 16; O2 saturation of 95%; blood pressure 175/79. HEENT EXAMINATION: Unremarkable. CARDIOVASCULAR SYSTEM: First and second heart sounds were heard. RESPIRATORY SYSTEM: Clear to auscultation. DIGESTIVE SYSTEM: Revealed a benign abdomen with positive bowel sounds. The only new complaint of this patient is that of weakness. LABORATORY INVESTIGATION: Showed a hemoglobin of 5.5, platelets of 37,000. Creatinine of 1.42. IMPRESSION: 1. Acute kidney injury, which seems to be stable. 2. Worsening anemia . 3. Metastatic uterine cancer. PLAN: 1. Transfuse the patient with at least 2 units of blood. 2. Renally dose all medications. 3. Further management will be dependent on the clinical course. Job ID: [id number]
[2018-04-16 06:30] LABS: #Eosinphils 0.2 thou/uL (0.0-0.7); #Lymphocytes 1.1 thou/uL (1.20-3.40); #Monocytes 0.8 thou/uL (0.11-0.59); #Neutrophils 6.1 thou/uL (1.40-6.50); %Basophils 0.5 % (0.0-1.0); %Eosinophils 2.6 % (0.0-10.0); %Lymphocytes 12.9 % (21.0-51.0); %Monocytes 9.9 % (0.0-10.0); %Neutrophils 74.1 % (42.0-75.0); Hemoglobin 8.2 g/dL (12.0-16.0); Mean Corpuscular HGB CONC 35.1 g/dL (32.0-36.0); Mean Corpuscular Hemoglobin 29.9 pg (27.0-31.0); Mean Corpuscular Volume 85.4 fL (78.0-98.0); Mean Platelet Volume 9.2 fL (7.4-10.4); Platelet Count 40 thou/uL (130-400); RBC Distribution Width 16.2 % (11.5-14.5); Red Blood Cell (RBC) Count 2.73 mill/uL (4.20-5.40); White Blood Cell (WBC) Count 8.2 thou/uL (4.8-10.8)
[2018-04-16 06:47] LABS: Anion Gap 11 mmol/L (10-20); BUN (Urea Nitrogen) 29 mg/dL (9.8-20.1); Calc. Creatinine Clearance 42 mL/min (70-130); Calcium 8.2 mg/dL (7.8-10.44); Carbon Dioxide 21 mmol/L (22-29); Chloride 110 mmol/L (98-107); Estimated GFR-MDRD 40; Glucose 83 mg/dL (70-105); Potassium 3.4 mmol/L (3.5-5.1); Sodium 139 mmol/L (136-145)
[2018-04-16 07:01] VITALS: BP 149/69; TEMP 98.6
--- NOTE | 2018-04-16 07:54 | PDOC.PN ---
- Subjective Encounter Start Date: 04/16/18 Encounter Start Time: 07:53 Ma. Martin was seen today in follow-up of Infected mediport, and acute idney injury, and dyspnea. She says her only complaint this morning is she still gets short of breath when she takes the oxygen off. - Objective Resuscitation Status - Order Detail: 04/07/18 16:14 Resuscitation Status Routine Resuscitation Status: FULL: Full Resuscitation Discussed with: patient MAR Reviewed: Yes Vital Signs & Weight: Vital Signs (12 hours) Temp Pulse Resp BP Pulse Ox 04/16/18 07:00 98.6 F 76 16 149/69 H 93 L 04/16/18 04:36 91 L 04/16/18 03:56 98.4 F 75 16 158/76 H 91 L 04/15/18 23:19 98.4 F 73 16 155/74 H 93 L Weight Weight 130 lb I&O: 04/15/18 04/16/18 04/17/18 06:59 06:59 06:59 Intake Total 1420 Balance 1420 Result Diagrams: 04/16/18 05:40 04/16/18 05:40 Phys Exam - Physical Examination HEENT: PERRLA Respiratory: no wheezing, no rales, no rhonchi, clear to auscultation bilateral + coarse breath sounds Cardiovascular: RRR, no significant murmur, no rub Gastrointestinal: soft, non-tender, no distention, positive bowel sounds Musculoskeletal: pulses present, edema present 2+ pitting edema in both lower extremities Neurological: non-focal, moves all 4 limbs Dx/Plan (1) Dyspnea Code(s): R06.00 - DYSPNEA, UNSPECIFIED Status: Acute (2) Infection of intravenous catheter Code(s): T82.7XXA - INFECT/INFLM REACT D/T OTH CARDI/VASC DEV/IMPLNT/GRFT, INIT Status: Acute Comment: MediPort removed. Site still a litte edematous, but less tender. Continue IV Vanc and Zosyn. Cultures pending. (3) Acute acalculous cholecystitis Code(s): K81.0 - ACUTE CHOLECYSTITIS Status: Acute (4) Anemia due to chemotherapy Code(s): D64.81 - ANEMIA DUE TO ANTINEOPLASTIC CHEMOTHERAPY; T45.1X5A - ADVERSE EFFECT OF ANTINEOPLASTIC AND IMMUNOSUP DRUGS, INIT Status: Chronic Comment: Will contine to monitor, if hgb drops below 7, will infuse another unit of PRBC. Amenable to transfusion. Tranfuse one unit 04/08/18. Continue to monitor. (5) Uterine cancer Code(s): C55 - MALIGNANT NEOPLASM OF UTERUS, PART UNSPECIFIED Status: Acute Comment: Followed by Dr. Plascencia. Extensive LN involvement, but no major organ involvement. Ongoing chemo. Due for chemo on Monday. Will likely have to delay pending the course of the infected port and abd. pain. (6) Hypokalemia Code(s): E87.6 - HYPOKALEMIA Status: Acute (7) Acute renal failure Status: Acute - Plan * Dyspnea- I suspect she is still volume overloaded and this is likely the cause of her dyspnea- will give another does of Lasix IV * Infected mediport- she has been transitioned to Minocin * Acute Kidney injury- improved- her creatinine is beginning to trend down * Acalculous cholesystitis- improved- she is s/p lap cecelia * HTN- blood pressure is a bit better- Lisinopril is on hold, while her kidney function recovers * Hopefully home soon, this evening or tomorrow if her oxygen requirement improves ( wean off O2).
[2018-04-16] MEDS ORDERED: Potassium Chloride 20 MEQ TAB PO SCH (08:00)
[2018-04-16] MEDS ORDERED: Furosemide 40 MG/4 ML VIAL SLOW IVP SCH (08:00)
[2018-04-16] MEDS: Amlodipine 10 MG TAB PO SCH (09:06)
--- NOTE | 2018-04-16 13:56 | PDOC.EVN ---
Event Note - Event Note Event Note: Ms. Martin is feeling better. She has been off oxygen since 9AM and her sats have been 98-100%. She is stable for discharge home
[2018-04-16] MEDS: Acetaminophen 325 MG TAB PO PRN (18:24)
--- NOTE | 2018-04-17 08:19 | DIS ---
DATE OF ADMISSION: 04/07/2018 DATE OF DISCHARGE: 04/16/2018 PRIMARY CARE PHYSICIAN: Christina Rice, PATIENT FINANCIAL SERVICES MANAGER-Damian DISCHARGE DISPOSITION: Home. PRIMARY DISCHARGE DIAGNOSES: 1. Infected MediPort. 2. Acalculous cholecystitis. 3. 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 4. Hypertension. 5. Metastatic uterine cancer. DISCHARGE MEDICATIONS: Include; 1. Lisinopril, the dose was increased from 10 to 20 mg daily. 2. Minocin 100 mg twice a day for 3 more days. 3. Lasix 20 mg daily just as needed. 4. Sertraline 100 mg daily. 5. [place] 10/325 q.6 as needed. 6. Amlodipine 10 mg daily. PROCEDURES: Procedures done during the admission, the patient had an abdominal MRI, which showed findings suspicious for layered gallbladder sludge at the level of the distal common bile duct with some mild ductal dilatation. There were some edema seen at the pancreatic tail. The patient also had an abdominal ultrasound, which showed new biliary ductal dilatation as well as some pancreatic ductal dilatation. There was an obstructive process near the ampulla related to a stone or mass, which could not be excluded. The patient had a HIDA scan showing non-visualization of the gallbladder and the patient had a laparoscopic cholecystectomy. She had a CT angiogram of the chest, which was negative for pulmonary embolism. There was extensive bilateral perihilar interstitial and alveolar ground-glass opacities concerning for bilateral edema. CODE STATUS: Full code. ALLERGIES: TO SULFA. HOSPITAL COURSE: Ms. Martin is a pleasant 57-year-old female, who presented to the emergency room with complaints of fever, and there was concern that she had an infected MediPort as she had some drainage around the site and redness. She was admitted and started on IV antibiotics and it was noted that she had some right upper quadrant tenderness. Dr. Null was concerned for possible gallbladder disease, and ultrasound, MRI, and HIDA scan were eventually ordered, which confirmed an acalculous cholecystitis. She underwent a laparoscopic cholecystectomy during her hospital stay with resolution of the abdominal discomfort. During her hospital stay, she was given quite a bit of volume, IV fluids and this caused her to have some dyspnea due to volume overload. She was diuresed and these symptoms resolved, and she was then subsequently able to be discharged home in stable condition. Hydrochlorothiazide was discontinued due to persistently low potassium levels, which after discontinuing the medication, her potassium became stable, and lisinopril dose was increased in compensation for discontinuing the hydrochlorothiazide. She is to follow up with Dr. Rice in approximately 2 to 3 days. The plan is to replace the MediPort once the area has healed and the patient had a PICC line placed during her hospital stay, so that she could receive her next course of chemotherapy. Job ID: [id number]
[2018-04-20] MEDS ORDERED: Heparin 1,000 UNITS/ML VIAL ONE (13:30)
== END 2018-04-16 18:31 | disposition home or self-care (01) | DRG 988 ==
LOC: ONC 14:02 → 3SE 04-08 17:21 → ONC 04-09 08:55
PROVIDERS: ADMIT Internal Medicine; ATTEND Internal Medicine
PROC: 30233N1 Transfusion of Nonautologous Red Blood Cells into Peripheral Vein, Percutaneous Approach (ICD-10-PCS; 2018-04-08)
PROC: 0JPT03Z Removal of Infusion Device from Trunk Subcutaneous Tissue and Fascia, Open Approach (ICD-10-PCS; 2018-04-09)
PROC: 0FT44ZZ Resection of Gallbladder, Percutaneous Endoscopic Approach (ICD-10-PCS; principal; 2018-04-11)
PROC: BF131ZZ Fluoroscopy of Gallbladder and Bile Ducts using Low Osmolar Contrast (ICD-10-PCS; 2018-04-11)
PROC: 0J9600Z Drainage of Chest Subcutaneous Tissue and Fascia with Drainage Device, Open Approach (ICD-10-PCS; 2018-04-11)
PROC: 02HV33Z Insertion of Infusion Device into Superior Vena Cava, Percutaneous Approach (ICD-10-PCS; 2018-04-14)
DX: T82.7XXA Infection and inflammatory reaction due to other cardiac and vascular devices, implants and grafts, initial encounter (principal); L02.213 Cutaneous abscess of chest wall; K81.0 Acute cholecystitis; N17.9 Acute kidney failure, unspecified; C55 Malignant neoplasm of uterus, part unspecified; D64.81 Anemia due to antineoplastic chemotherapy; E87.6 Hypokalemia; R06.00 Dyspnea, unspecified; I10 Essential (primary) hypertension; Z88.2 Allergy status to sulfonamides
CPT/HCPCS: 36415; 36430; 36569; 47532; 71045; 71046; 71275; 74181; 76705; 78227; 80048; 80053; 80202; 82150; 82570; 83690; 83735; 84156; 85025; 86850; 86900; 86901; 87040; 87070; 87071; 87205; 88304; A9537; C1751; J1100; J1610; J1940; J2001; J2270; J2405; J2543; J2704; J3010; J3370; J7050; P9016; Q9961

== ENCOUNTER 2018-04-24 10:09 | Day surgery (SDC) | payer OTHER ==
[2018-04-24] MEDS ORDERED: Sodium Chloride 0.9% 50 ML ONE (10:15)
[2018-04-24] MEDS ORDERED: Acetaminophen 500 MG TAB PO SCH (10:15)
[2018-04-24] MEDS ORDERED: diphenhydrAMINE 25 MG CAP PO SCH (10:30)
[2018-04-24 15:04] LABS: Hemoglobin 8.8 g/dL (12.0-16.0)
[2018-04-24 17:17] VITALS: BP 177/85; TEMP 97.7
== END 2018-04-24 17:16 | disposition home or self-care (01) ==
LOC: ONC/OP 10:09
PROVIDERS: ATTEND Internal Medicine Hematology & Oncology
PROC: 30233N1 Transfusion of Nonautologous Red Blood Cells into Peripheral Vein, Percutaneous Approach (ICD-10-PCS; principal; 2018-04-24)
DX: D64.9 Anemia, unspecified (principal); D69.6 Thrombocytopenia, unspecified; Z88.2 Allergy status to sulfonamides
CPT/HCPCS: 36430; 85014; 85018; 86850; 86900; 86901; J1642; P9016

== ENCOUNTER 2018-05-03 13:14 | Inpatient (IN) | payer OTHER ==
[2018-05-03] MEDS: Morphine 4 MG/ML VIAL SLOW IVP PRN ×4 (14:03→21:45)
[2018-05-03] MEDS: Sodium Chloride 0.9% 1,000 ML IV SCH ×2 (14:05→23:40)
[2018-05-03 14:20] VITALS: BMI 23.1
[2018-05-03] MEDS ORDERED: hydrALAZINE 20 MG/ML VIAL SLOW IVP PRN (16:30)
--- NOTE | 2018-05-03 16:47 | HP ---
CHIEF COMPLAINT: Pain in the chest with swallowing, nausea and vomiting, lack of appetite, and weight loss. HISTORY OF PRESENT ILLNESS: The patient is a 58-year-old female, who is admitted directly from a Cancer [facility] office because of mentioned above problems. Apparently, she noticed recently about some left neck nodes, which were enlarging and she visited a provider, Jacquie FUNG, who recommended admission to the hospital for IV fluids, blood transfusion, and pain management. There was no any fever or chills. She is constipated. She has some pain in the chest when she swallows. She was recently started on some chemotherapy, which is relatively new regimen to her. PAST SURGICAL HISTORY: 1. Metastatic uterine cancer. 2. Anemia associated with malignancy. 3. Hypertension. 4. History of acalculous cholecystitis. 5. Infected MediPort. PAST SURGICAL HISTORY: 1. Appendectomy. 2. Total abdominal hysterectomy with BSO. 3. Prior lymph node dissection. 4. Cholecystectomy. FAMILY HISTORY: Noncontributory. SOCIAL HISTORY: She denies any history of cigarette smoking, alcohol intake, or any illicit drug use. Her surrogate decision maker is her daughter. ALLERGIES: SULFA. REVIEW OF SYSTEMS: Obtained and they are negative except for positive findings in the HPI. PHYSICAL EXAMINATION: VITAL SIGNS: Blood pressure is 188/88, pulse is 91, temperature 98.8, respiratory rate is 18, and O2 saturation 96% on room air. HEENT: Head is atraumatic and normocephalic. Eyes, PERRLA. Sclerae are nonicteric. Conjunctivae palish. Oral mucosa is slightly dry. NECK: Supple, although tender to palpation in the left side. LUNGS: Clear. HEART: S1 and S2, normal. No S3. No S4. ABDOMEN: Soft and nontender. Bowel sounds are present. No organomegaly. The points of entry for cholecystectomy adhered properly. EXTREMITIES: No clubbing, cyanosis, or edema. NEUROLOGIC: She is alert and oriented x4. There is no any sensory or motor deficits present. Cranial nerves are intact. LABORATORY DATA: None. Apparently, BMP was done in Cancer Center today, we will obtain results from them. IMPRESSION: 1. Generalized pain with nausea and vomiting. Suspicion for spreading of metastatic disease of her uterus cancer. 2. Anemia. 3. Hypertension. 4. Acalculous cholecystitis, status post cholecystectomy recently. 5. Infected MediPort. PLAN: Plan is to admit to Oncology floor for pain management with morphine [QAMARKER] IV push q.2 hours p.r.n. and MS Contin 30 q.12 hours. Transfused two units of packed red blood cells. Diet, regular. Normal saline at 100 mL/h. Palliative Care consult. Protonix 40 mg IV push. We will do the CT scan of the chest and abdomen with contrast IV and scan of the soft tissue of the neck with contrast. Oncologist will be consulted and will have DVT prophylaxis with Lovenox. Job ID: [id number]
[2018-05-03] MEDS ORDERED: ISOVUE-370 76%-LOCM 1 ML ONE (17:01)
[2018-05-03] MEDS: Potassium Chloride 20 MEQ TAB PO SCH ×2 (17:06→20:19)
--- NOTE | 2018-05-03 18:50 | CT ---
CT OF THE NECK WITH CONTRAST CT OF THE CHEST WITH CONTRAST CT OF THE ABDOMEN AND PELVIS WITH CONTRAST 05/03/18 HISTORY: Cancer at the base of the neck. Intractable pain. Epigastric pain after eating or drinking. TECHNIQUE: 1. Multiple contiguous axial images were obtained in a CT of the neck with contrast. Coronal ref ormats were performed. 2. Multiple contiguous axial images were obtained in a CT of the chest with contrast. Coronal re formats were performed. 3. Multiple contiguous axial images were obtained in a CT of the abdomen and pelvis with contras t. Coronal reformats were performed. FINDINGS: CT NECK: There is a 1.7 cm mass in the left infraclavicular region. This is grossly stable in size compared to the prior examination but is not as well circumscribed as on the prior examination, extending into t he fat surrounding the mass. No other masses are seen in the neck. No enlarged cervical lymph nodes a re seen. No mucosal abnormality is seen in the nasopharynx, oropharynx, hypopharynx, or subglottic regions. Th e thyroid gland and salivary glands are symmetric. Degenerative changes are seen in the cervical spine. CT CHEST: There is a right upper extremity PICC line with its tip in the superior vena cava. A small left pleur al effusion and left basilar atelectasis are seen. No suspicious pulmonary nodules are seen. No focal infiltrates are present. The heart is normal in size without focal cardiac abnormality. No hilar lymphadenopathy is seen. Ther e is a stable 1.2 cm nodule in the anterior mediastinum which could represent an enlarged anterior me diastinal lymph node. No other enlarged mediastinal lymph nodes are seen. No axillary adenopathy is s een. Degenerative changes are seen in the spine. The bones of the thorax are otherwise unremarkable. CT ABDOMEN/PELVIS: There are stable small hypodensities in the liver measuring up to 1.3 cm in size which likely represe nts cysts. The patient is status post cholecystectomy. There are stable hypodensities in the left kid shannon measuring up to 1.3 cm in size which represents cysts. The right kidney, adrenal glands, spleen, and pancreas are unremarkable. No free air, free fluid, or stranding changes are seen in the abdomen or pelvis. The patient is statu s post hysterectomy. The large and small bowel are unremarkable. There are enlarged retroperitoneal l ymph nodes measuring up to 1.6 cm in size. These are relatively stable compared to the prior exam. No pelvic adenopathy is seen. No inguinal adenopathy is seen. Degenerative changes are seen in the lumbar spine. The abdominal wall soft tissues are unremarkable. IMPRESSION: 1. Stable infraclavicular mass. 2. Small left pleural effusion with adjacent atelectasis. 3. Stable hepatic cysts. 4. Stable left renal cysts. 5. Stable metastatic lymphadenopathy in the retroperitoneum. 6. Stable anterior mediastinal nodule may represent a stable enlarged mediastinal lymph node. POS: JENIFER
[2018-05-03] MEDS: Labetalol HCl 100 MG/20 ML VIAL SLOW IVP PRN (19:02)
[2018-05-03] MEDS ORDERED: Lisinopril 20 MG TAB PO SCH (19:30)
[2018-05-03] MEDS: Morphine ER 30 MG TAB PO SCH (20:19)
[2018-05-03] MEDS: Pantoprazole 40 MG VIAL IVP SCH (20:21)
[2018-05-03] MEDS ORDERED: Cyclobenzaprine 10 MG TAB PO SCH (23:30)
[2018-05-03 23:53] LABS: Magnesium 1.6 mg/dL (1.6-2.6); Potassium 4.9 mmol/L (3.5-5.1)
[2018-05-04] MEDS: Labetalol HCl 100 MG/20 ML VIAL SLOW IVP PRN (01:20)
[2018-05-04] MEDS: Morphine 4 MG/ML VIAL SLOW IVP PRN ×3 (01:21→20:31)
[2018-05-04] MEDS ORDERED: Prevnar 13-Val Conj/PF 0.5 ML SYRINGE IM ONE (09:00)
[2018-05-04] MEDS: Morphine ER 30 MG TAB PO SCH ×2 (09:32→20:22)
[2018-05-04] MEDS: Lisinopril 20 MG TAB PO SCH (09:33)
[2018-05-04] MEDS: Sodium Chloride 0.9% 1,000 ML IV SCH (10:22)
--- NOTE | 2018-05-04 10:58 | PDOC.EVN ---
Event Note - Event Note Event Note: Called by RN for pt requesting more flexeril - states it worked for muscle spasms. Will order the same dose bid prn. will also order labs for today as she is s/p 2 units prbc.
[2018-05-04 11:53] LABS: #Basophils 0.1 thou/uL (0.0-0.2); #Eosinphils 0.2 thou/uL (0.0-0.7); #Lymphocytes 1.3 thou/uL (1.20-3.40); #Monocytes 0.9 thou/uL (0.11-0.59); %Eosinophils 2.3 % (0.0-10.0); %Lymphocytes 12.2 % (21.0-51.0); %Monocytes 8.5 % (0.0-10.0); Hemoglobin 9.1 g/dL (12.0-16.0); Mean Corpuscular HGB CONC 33.8 g/dL (32.0-36.0); Mean Corpuscular Hemoglobin 29.4 pg (27.0-31.0); Mean Corpuscular Volume 86.8 fL (78.0-98.0); Platelet Count 67 thou/uL (130-400); RBC Distribution Width 16.3 % (11.5-14.5); Red Blood Cell (RBC) Count 3.09 mill/uL (4.20-5.40); White Blood Cell (WBC) Count 10.5 thou/uL (4.8-10.8)
[2018-05-04] MEDS: Cyclobenzaprine 10 MG TAB PO PRN (12:09)
[2018-05-04 12:10] LABS: Anion Gap 12 mmol/L (10-20); BUN (Urea Nitrogen) 18 mg/dL (9.8-20.1); Calc. Creatinine Clearance 42 mL/min (70-130); Calcium 8.7 mg/dL (7.8-10.44); Carbon Dioxide 23 mmol/L (22-29); Chloride 106 mmol/L (98-107); Estimated GFR-MDRD 42; Glucose 186 mg/dL (70-105); Potassium 3.2 mmol/L (3.5-5.1); Sodium 138 mmol/L (136-145)
--- NOTE | 2018-05-04 17:14 | PDOC.PN ---
- Subjective Encounter Start Date: 05/04/18 (f/u neck pain) Encounter Start Time: 17:14 Subjective: pt reports improvement in neck spasm with flexeril. continues to h -: have RUQ pain that is brief and can occur with/without food. -: denies n/v - Objective Resuscitation Status - Order Detail: 05/03/18 13:51 Resuscitation Status Routine Resuscitation Status: DNAR: NO Resuscitation Discussed with: Jacquie Duenas Additional comments: Written order Vital Signs & Weight: Vital Signs (12 hours) Temp Pulse Resp BP BP Pulse Ox 05/04/18 12:20 83 157/73 H 05/04/18 09:33 178/84 H 05/04/18 08:20 98.8 F 84 18 178/84 H 93 L 05/04/18 08:00 93 L Weight Admit Weight 126 lb 2 oz Weight 126 lb 2 oz I&O: 05/03/18 05/04/18 05/05/18 06:59 06:59 06:59 Intake Total 2079 Balance 2079 Result Diagrams: 05/04/18 11:40 05/04/18 11:40 Phys Exam - Physical Examination Constitutional: NAD Respiratory: no wheezing, no rales, no rhonchi Cardiovascular: RRR, no significant murmur Gastrointestinal: soft, no distention, positive bowel sounds Musculoskeletal: no edema Neurological: non-focal, moves all 4 limbs Psychiatric: normal affect Dx/Plan (1) Uterine cancer Code(s): C55 - MALIGNANT NEOPLASM OF UTERUS, PART UNSPECIFIED Status: Chronic Qualifiers: Malignant neoplasm of body of uterus location: unspecified location (2) Neck pain Code(s): M54.2 - CERVICALGIA Status: Acute (3) Hypertension Code(s): I10 - ESSENTIAL (PRIMARY) HYPERTENSION Status: Chronic Qualifiers: Hypertension type: essential hypertension Qualified Code(s): I10 - Essential (primary) hypertension (4) Anemia Code(s): D64.9 - ANEMIA, UNSPECIFIED Status: Chronic Qualifiers: Anemia type: unspecified type Qualified Code(s): D64.9 - Anemia, unspecified (5) Hypokalemia Code(s): E87.6 - HYPOKALEMIA Status: Acute (6) RUQ abdominal pain Code(s): R10.11 - RIGHT UPPER QUADRANT PAIN Status: Acute (7) Acute renal failure Status: Acute - Plan * BP not well controlled - hctz held on admission due to possible effects on the kidneys. Will start amlodipine 5 mg now and 5 mg daily starting in the morning. Continue prn IV meds and scheduled lisinopril. * Neck pain - continue flexeril prn, add lidocaine patches at night (12 hours) and remove during the day. heating pad during the day - when not wearing hte lidocaine patches * pt takes colace tid at home - ordered * * Pt with decline in renal function through April - not long enough to consider CKD. Has been stable through the month, will continue to monitor. * * pt declined IVF after bag completed this morning - order cancelled * * RUQ pain - s/p hepatobiliary scan - to be seen by Gen Surgery * * dvt prophy - ambulatory * gi prophy - not indicated * code status DNAR * * reviewed plan of care with patient, no questions or further needs at end of eval.
[2018-05-04] MEDS ORDERED: Amlodipine 5 MG TAB PO SCH (17:30)
--- NOTE | 2018-05-04 17:55 | NM ---
HEPATOBILIARY STUDY: 05/04/18 HISTORY: Pain right upper quadrant post laparoscopy cholecystectomy. RADIOPHARMACEUTICAL: 4.5 millicuries technetium 99m Mebrofenin, IV. VIEWS OBTAINED: Anterior. COMPARISON: CT abdomen on 05/03/18. FINDINGS: There is normal uptake and excretion of radiotracer by the liver. Bowel activity is faintly visualize d by 13 minutes with increase in activity in conforming to loops of bowel imaging up to 60 minutes. The common duct is prominent likely related to post cholecystectomy changes and this was also noted o n recent CT examination. There is no abnormal collection of radiotracer seen outside the confines of the liver to suggest a biliary leak. IMPRESSION: 1. No evidence of a common duct obstruction. 2. No uptake of radiotracer is seen outside the confines of the expected location of the biliary system or bowel to suggest a biliary leak. 3. Absence of uptake in gallbladder related to prior cholecystectomy. POS: DEDRICK
[2018-05-04] MEDS: Docusate 100 MG CAP PO SCH (20:22)
[2018-05-04] MEDS: Lidocaine 5% Patch TD SCH (20:22)
[2018-05-04] MEDS: Pantoprazole 40 MG VIAL IVP SCH (20:23)
--- NOTE | 2018-05-04 21:56 | CON ---
DATE OF CONSULTATION: REASON FOR CONSULTATION: Metastatic uterine cancer. HISTORY OF PRESENT ILLNESS: Ms. Martin is a pleasant 58-year-old female with stage IVB uterine papillary serous carcinoma, currently undergoing treatment with Doxil and Avastin. She was recently hospitalized for a MediPort infection and cholecystectomy. She has had midsternal abdominal discomfort since surgery causing lack of appetite, weight loss and weakness. She presented to our clinic yesterday for chemo. Her CBC showed a hemoglobin of 6.4. This was despite transfusion approximately 9 days prior for the same hemoglobin level of 6.4. She does deny any bleeding. No melena, hematochezia or hemoptysis. She was also complaining of worsening neck pain and muscle spasms. Her heart rate was elevated and her blood pressure was elevated as well. Decision was made to admit her for improved pain control, transfusion and further evaluation of the pain. She underwent CT scans, which showed stable disease. She does have a rising CEA, which was 78 in March and now is 234; however, she has not received treatment since March 27 due to hospitalizations and complications thereof. PAST MEDICAL HISTORY: 1. Stage IVB uterine cancer. 2. Chronic anemia secondary to stage IVB uterine cancer. 3. Hypertension. 4. Irregular heart rate. 5. Anxiety/depression. PAST SURGICAL HISTORY: 1. Tubal ligation. 2. Kidney stone extraction. 3. Hysterectomy and oophorectomy. ALLERGIES: SULFA. HOME MEDICATIONS: 1. Amlodipine 10 mg daily. 2. Hydrochlorothiazide 25 mg daily. 3. Hydrocodone p.r.n. 4. Ibuprofen 400 mg p.r.n. 5. Lisinopril 10 mg daily. 6. Prilosec 20 mg daily. 7. Zofran p.r.n. 8. Potassium chloride 20 mEq daily. 9. Zoloft 100 mg daily. 10. Tramadol p.r.n. 11. Xanax 0.5 mg every 8 hours p.r.n. FAMILY HISTORY: Mother had leukemia. SOCIAL HISTORY: . Has 5 children. Lives with her spouse. No alcohol, tobacco or illicit drug use. REVIEW OF SYSTEMS: CONSTITUTIONAL: No fever, chills, or night sweats. EYES: No blurred or double vision. ENT: No pain, hoarseness, sore throat, or dysphagia. CV: Positive for chest pain. No palpitations. RESPIRATORY: Mild shortness of breath. Dyspnea on exertion. No cough. GI: Positive for nausea and vomiting. No diarrhea, constipation or bleeding. : No dysuria or hematuria. MUSCULOSKELETAL: Positive for joint and back pain. SKIN: No rash or pruritus. HEMATOLOGICAL: No bleeding, bruising, or clotting. NEUROLOGICAL: Positive for weakness. No headache, numbness, tingling, or seizure activities. PSYCH: Positive for anxiety and depression. PHYSICAL EXAMINATION: VITAL SIGNS: Temperature is 98.8, pulse is 83, respiratory rate 18, BP is 157/73. She is 93% on room air. GENERAL: Well-developed, well-nourished female, in mild discomfort. HEENT: Normocephalic, atraumatic. Pupils are equal and reactive to light. NECK: Supple. CV: Regular rate and rhythm. LUNGS: Clear. ABDOMEN: Soft, nontender. Bowel sounds are positive. EXTREMITIES: No clubbing, cyanosis, or edema. SKIN: No rash. HEMATOLOGICAL: No petechiae or purpura. NEUROLOGICAL: Nonfocal. PSYCHIATRIC: The patient is alert, oriented, and appropriate. PERTINENT LABS AND X-RAYS: Current WBCs are 10.5, hemoglobin 9.1, hematocrit 26.8, platelet count is 67,000 and 76% neutrophils, 12% lymphocytes. Sodium is 138, potassium 3.2, chloride 106, CO2 is 23, BUN is 18, creatinine 1.29. Calcium 8.7. Magnesium 1.6. CT scan of the neck, chest, abdomen and pelvis shows stable disease. ASSESSMENT: 1. Metastatic uterine cancer. 2. Intractable pain. 3. Chronic anemia. DISCUSSION: We will continue pain control with Flexeril and narcotics. Her midsternal pain started since her cholecystectomy. I have discussed with Dr. Null who will see the patient. We will continue IV hydration. We will consult GI if need be. Thank you for the consult. We will follow her closely. Job ID: [id number]
[2018-05-05] MEDS: Cyclobenzaprine 10 MG TAB PO PRN ×2 (00:06→10:34)
[2018-05-05 06:09] LABS: #Basophils 0.1 thou/uL (0.0-0.2); #Eosinphils 0.4 thou/uL (0.0-0.7); #Lymphocytes 1.8 thou/uL (1.20-3.40); #Neutrophils 5.3 thou/uL (1.40-6.50); %Basophils 0.9 % (0.0-1.0); %Eosinophils 4.5 % (0.0-10.0); %Lymphocytes 21.3 % (21.0-51.0); %Monocytes 11.5 % (0.0-10.0); %Neutrophils 61.9 % (42.0-75.0); Mean Corpuscular HGB CONC 33.7 g/dL (32.0-36.0); Mean Corpuscular Hemoglobin 29.7 pg (27.0-31.0); Mean Platelet Volume 5.2 fL (7.4-10.4); Platelet Count 63 thou/uL (130-400); RBC Distribution Width 16.8 % (11.5-14.5); Red Blood Cell (RBC) Count 2.71 mill/uL (4.20-5.40); White Blood Cell (WBC) Count 8.6 thou/uL (4.8-10.8)
[2018-05-05 06:28] LABS: Anion Gap 11 mmol/L (10-20); BUN (Urea Nitrogen) 18 mg/dL (9.8-20.1); Calc. Creatinine Clearance 44 mL/min (70-130); Calcium 8.7 mg/dL (7.8-10.44); Carbon Dioxide 25 mmol/L (22-29); Chloride 104 mmol/L (98-107); Estimated GFR-MDRD 45; Glucose 80 mg/dL (70-105); Potassium 3.3 mmol/L (3.5-5.1); Sodium 137 mmol/L (136-145)
[2018-05-05] MEDS: Lisinopril 20 MG TAB PO SCH (10:01)
[2018-05-05] MEDS: Morphine ER 30 MG TAB PO SCH ×2 (10:02→20:57)
[2018-05-05] MEDS: Docusate 100 MG CAP PO SCH ×3 (10:02→20:58)
[2018-05-05] MEDS: Amlodipine 5 MG TAB PO SCH (10:02)
[2018-05-05] MEDS: Lidocaine Patch Removal 1 EACH TOP SCH (10:03)
--- NOTE | 2018-05-05 11:53 | PDOC.PN ---
- Subjective Encounter Start Date: 05/05/18 Encounter Start Time: 07:20 Pt seen for followup re; acute kidney injury. Denies chets pain, shortness of breath, fevers or chills. pain is better. - Objective Resuscitation Status - Order Detail: 05/03/18 13:51 Resuscitation Status Routine Resuscitation Status: DNAR: NO Resuscitation Discussed with: Jacquie Duenas Additional comments: Written order MAR Reviewed: Yes Vital Signs & Weight: Vital Signs (12 hours) Temp Pulse Resp BP BP BP Pulse Ox 05/05/18 10:02 86 175/81 H 05/05/18 10:01 175/81 H 05/05/18 04:29 98.9 F 86 16 129/68 92 L 05/05/18 00:21 99.3 F 98 18 172/79 H 92 L Weight Admit Weight 126 lb 2 oz Weight 126 lb 2 oz I&O: 05/04/18 05/05/18 05/06/18 06:59 06:59 06:59 Intake Total 2079 1200 Balance 2079 1200 Result Diagrams: 05/05/18 05:59 05/05/18 05:59 Additional Labs: labs reviewed by me Phys Exam - Physical Examination Constitutional: NAD HEENT: moist MMs, sclera anicteric, oral pharynx no lesions, 2+ tonsils Neck: no nodes, no JVD, supple, full ROM Respiratory: clear to auscultation bilateral Cardiovascular: RRR, no rub S1, s2 Gastrointestinal: soft, non-tender, no distention, positive bowel sounds Neurological: moves all 4 limbs Psychiatric: normal affect, A&O x 3 Dx/Plan (1) Acute kidney injury Code(s): N17.9 - ACUTE KIDNEY FAILURE, UNSPECIFIED Status: Acute Comment: Improving, follow creatinine. Hold ACEI. (2) Hypokalemia Code(s): E87.6 - HYPOKALEMIA Status: Acute Comment: replace potassium (3) Anemia Code(s): D64.9 - ANEMIA, UNSPECIFIED Status: Chronic Qualifiers: Anemia type: unspecified type Qualified Code(s): D64.9 - Anemia, unspecified Comment: Hb 8.0 today, s/p transfusion of two units pRBC. (4) Hypertension Code(s): I10 - ESSENTIAL (PRIMARY) HYPERTENSION Status: Chronic Qualifiers: Hypertension type: essential hypertension Qualified Code(s): I10 - Essential (primary) hypertension Comment: Increase amlodipine dose to 10 mg PO daily, hold lisinopril, HCTZ is already on hold (5) Uterine cancer Code(s): C55 - MALIGNANT NEOPLASM OF UTERUS, PART UNSPECIFIED Status: Chronic Comment: Oncology following - Plan * . Review of Systems - Review of Systems Constitutional: negative: fever, chills, sweats, weakness, malaise Respiratory: negative: Cough, Shortness of Breath, SOB with Excertion, Pleuritic Pain, Wheezing Cardiovascular: negative: chest pain, palpitations, orthopnea, paroxysmal nocturnal dyspnea, edema, light headedness Gastrointestinal: negative: Nausea, Vomiting, Abdominal Pain, Diarrhea, Constipation, Melena, Hematochezia Genitourinary: negative: Dysuria, Frequency, Incontinence, Hematuria, Retention Skin: negative: Rash, Lesions, Eric, Bruising - Medications/Allergies Allergies/Adverse Reactions: Allergies Allergy/AdvReac Type Severity Reaction Status Date / Time Sulfa (Sulfonamide Allergy Hives Verified 05/03/18 14:12 Antibiotics) Medications: Current Medications Hydrocodone Bitart/Acetaminophen ([place] 10/325) 1 tab PO Q6HR PRN PRN Reason: Pain IF ABLE TO TAKE PO Amlodipine Besylate (Norvasc) 5 mg PO DAILY [facility] Last Admin: 05/05/18 10:02 Dose: 5 mg Cyclobenzaprine HCl (Flexeril) 10 mg PO BID PRN PRN Reason: Muscle Spasm Last Admin: 05/05/18 10:34 Dose: 10 mg Docusate Sodium (Colace) 100 mg PO TID [facility] Last Admin: 05/05/18 10:02 Dose: 100 mg Hydralazine HCl (Apresoline) 10 mg SLOW IVP Q4H PRN PRN Reason: SBP > 160/DBP > 100 Last Admin: 05/03/18 16:59 Dose: 10 mg Labetalol HCl (Normodyne) 20 mg SLOW IVP Q4H PRN PRN Reason: SYS>160 Last Admin: 05/04/18 01:20 Dose: 20 mg Lidocaine (Lidoderm 5% Patch) 2 patch TD HS [facility] Last Admin: 05/04/18 20:22 Dose: 2 patch Lisinopril (Zestril) 20 mg PO DAILY [facility] Last Admin: 05/05/18 10:01 Dose: 20 mg Miscellaneous Medication (Lidocaine Patch Removal) 2 each TOP 0900 [facility] Last Admin: 05/05/18 10:03 Dose: Not Given Morphine Sulfate (Morphine) 2 mg SLOW IVP Q2H PRN PRN Reason: Breakthrough Pain Last Admin: 05/04/18 20:31 Dose: 2 mg Morphine Sulfate (Ms Contin) 30 mg PO Q12HR [facility] Last Admin: 05/05/18 10:02 Dose: 30 mg Pantoprazole Sodium (Protonix) 40 mg IVP 2100 [facility] Last Admin: 05/04/18 20:23 Dose: 40 mg Pantoprazole Sodium (Protonix) 40 mg PO DAILY PRN PRN Reason: Indigestion Sertraline HCl (Zoloft) 100 mg PO DAILY [facility] Last Admin: 05/05/18 10:02 Dose: 100 mg
--- NOTE | 2018-05-05 12:07 | RAD ---
AP VIEW CHEST AND ABDOMEN TWO RADIOGRAPHS PROVIDED: DATE: 05/05/2018. HISTORY: Patient with odynophagia and pain in lower esophageal region. COMPARISON: 04/10/2018. FINDINGS: Right-sided PICC line is noted in place with the tip overlying the cavoatrial junction. Pleural and parenchymal changes are again seen at the left lung base likely related to left pleural effusion or a telectasis which was seen on the prior exam and CT thorax on 05/03/2018. The right lung is clear. C ardiac silhouette is magnified by projection. Surgical clips overlie the right upper quadrant. There is contrast seen diffusely throughout the col on greatest in the region of the ascending and transverse colon. Multiple calcifications overlie the pelvis most suggestive of phleboliths. The bowel gas pattern is overall nonspecific. IMPRESSION: 1. This examination was initially scheduled as an upper GI examination, but due to contrast in the c olon, the procedure was discontinued and will be attempted in 24 hours. 2. Nonspecific bowel gas pattern with residual contrast throughout the colon. 3. Left pleural effusion and atelectasis. POS: JENIFER
[2018-05-05] MEDS ORDERED: Amlodipine 5 MG TAB PO SCH (12:30)
[2018-05-05] MEDS ORDERED: Potassium Chloride 20 MEQ TAB PO SCH (12:30)
[2018-05-05] MEDS ORDERED: Acetaminophen 325 MG TAB PO PRN (18:09)
[2018-05-05] MEDS: HYDROcodone/Acetaminophen 10/325 mg Tablet PO PRN (18:35)
--- NOTE | 2018-05-05 19:11 | PDOC.GSPN ---
Surgery Progress Note: Subj - Subjective Narrative: Patient's pain is better today. It still hurts to swallow but it is not as severe. We were unable to get the esophagram since there was still contrast in her transverse colon. This has been rescheduled for tomorrow. Assessment/plan: Odynophagia of unclear cause. Esophagram will be ordered for tomorrow. I'm going to be gone for the rest of the week but if there are worrisome abnormalities or if her pain persists I would recommend GI consultation. There is no evidence of postoperative complications and HIDA scan or other imaging. She can follow up in my clinic on an as-needed basis. Surgery Progress Note: Obj - Vital signs Vital signs: Vital Signs - Most Recent Temp Pulse Resp BP Pulse Ox 99.1 F 94 18 131/62 95 05/05/18 18:04 05/05/18 18:04 05/05/18 18:04 05/05/18 18:04 05/05/18 18:04 Surgery Progress Note: Results - Labs Result Diagrams: 05/05/18 05:59 05/05/18 05:59
[2018-05-05] MEDS: Lidocaine 5% Patch TD SCH (20:58)
[2018-05-05] MEDS: Pantoprazole 40 MG VIAL IVP SCH (20:58)
[2018-05-06] MEDS ORDERED: Magnesium Citrate 300 ML BOT PO SCH (10:30)
[2018-05-06] MEDS: Amlodipine 10 MG TAB PO SCH (11:08)
[2018-05-06] MEDS: Amlodipine 5 MG TAB PO SCH (11:08)
[2018-05-06] MEDS: Docusate 100 MG CAP PO SCH ×3 (11:09→20:49)
[2018-05-06] MEDS: Morphine ER 30 MG TAB PO SCH ×2 (11:09→20:50)
[2018-05-06] MEDS: Lidocaine Patch Removal 1 EACH TOP SCH (11:11)
--- NOTE | 2018-05-06 11:28 | RAD ---
PA AND LATERAL CHEST XRAY: DATE: 05/06/2018. HISTORY: Odynophagia localized to lower esophageal area. COMPARISON: 05/05/2018. FINDINGS: A right-sided PICC line remains in place and unchanged in position. Pleural and parenchymal changes are seen at the left lung base likely related to left pleural effusion and atelectasis. Superimposed infiltrate/pneumonia could not be excluded. There is a tiny right pleural effusion present. Cardia c silhouette and pulmonary vasculature are within normal limits. There is residual contrast again se en within the transverse colon at the splenic flexure. Surgical clips overlie the right upper quadra nt. IMPRESSION: 1. Stable pleural and parenchymal changes left lung base probably related to left pleural effusion a nd atelectasis. Superimposed infiltrate/pneumonia at the left lung base is a possibility. 2. Tiny right pleural effusion. 3. Residual contrast within the transverse colon and at the splenic flexure. POS: [facility]
[2018-05-06] MEDS: Cyclobenzaprine 10 MG TAB PO PRN (14:53)
--- NOTE | 2018-05-06 17:07 | PDOC.PN ---
- Subjective Encounter Start Date: 05/06/18 Encounter Start Time: 17:05 Pt seen followup re: acute kidney injury. Feels better. - Objective Resuscitation Status - Order Detail: 05/03/18 13:51 Resuscitation Status Routine Resuscitation Status: DNAR: NO Resuscitation Discussed with: Jacquie Duenas Additional comments: Written order MAR Reviewed: Yes Vital Signs & Weight: Vital Signs (12 hours) Temp Pulse Resp BP BP BP Pulse Ox 05/06/18 12:36 98.0 F 89 18 141/65 H 93 L 05/06/18 11:08 85 134/63 05/06/18 08:45 98.5 F 85 16 134/63 92 L 05/06/18 08:00 92 L Weight Admit Weight 126 lb 2 oz Weight 126 lb 2 oz I&O: 05/05/18 05/06/18 05/07/18 06:59 06:59 06:59 Intake Total 1200 Balance 1200 Result Diagrams: 05/07/18 06:06 05/07/18 06:06 Additional Labs: Labs removed by me Phys Exam - Physical Examination Constitutional: NAD HEENT: moist MMs Neck: supple Respiratory: clear to auscultation bilateral Cardiovascular: RRR Gastrointestinal: soft Neurological: moves all 4 limbs Psychiatric: normal affect Dx/Plan (1) Acute kidney injury Code(s): N17.9 - ACUTE KIDNEY FAILURE, UNSPECIFIED Status: Acute Comment: Continue to hold ACEI. Check labs tomorrow. (2) Hypokalemia Code(s): E87.6 - HYPOKALEMIA Status: Acute Comment: check labs tomorrow. (3) Anemia Code(s): D64.9 - ANEMIA, UNSPECIFIED Status: Chronic Qualifiers: Anemia type: unspecified type Qualified Code(s): D64.9 - Anemia, unspecified Comment: s/p transfusion of two units pRBC. (4) Hypertension Code(s): I10 - ESSENTIAL (PRIMARY) HYPERTENSION Status: Chronic Qualifiers: Hypertension type: essential hypertension Qualified Code(s): I10 - Essential (primary) hypertension Comment: Increase amlodipine dose to 10 mg PO daily, hold lisinopril, HCTZ is already on hold (5) Uterine cancer Code(s): C55 - MALIGNANT NEOPLASM OF UTERUS, PART UNSPECIFIED Status: Chronic Comment: Oncology following - Plan * . Review of Systems - Review of Systems Cardiovascular: negative: chest pain, palpitations, orthopnea, paroxysmal nocturnal dyspnea, edema, light headedness Gastrointestinal: negative: Nausea, Vomiting, Abdominal Pain, Diarrhea, Constipation, Melena, Hematochezia - Medications/Allergies Allergies/Adverse Reactions: Allergies Allergy/AdvReac Type Severity Reaction Status Date / Time Sulfa (Sulfonamide Allergy Hives Verified 05/03/18 14:12 Antibiotics) Medications: Current Medications Acetaminophen (Tylenol) 650 mg PO Q4H PRN PRN Reason: Headache/Fever or Pain Last Admin: 05/05/18 18:33 Dose: 650 mg Hydrocodone Bitart/Acetaminophen (Wilson 10/325) 1 tab PO Q6HR PRN PRN Reason: Pain IF ABLE TO TAKE PO Last Admin: 05/05/18 18:35 Dose: 1 tab Amlodipine Besylate (Norvasc) 5 mg PO DAILY [facility] Last Admin: 05/06/18 11:08 Dose: 5 mg Amlodipine Besylate (Norvasc) 10 mg PO DAILY [facility] Last Admin: 05/06/18 11:08 Dose: 10 mg Cyclobenzaprine HCl (Flexeril) 10 mg PO BID PRN PRN Reason: Muscle Spasm Last Admin: 05/06/18 14:53 Dose: 10 mg Docusate Sodium (Colace) 100 mg PO TID [facility] Last Admin: 05/06/18 11:09 Dose: 100 mg Hydralazine HCl (Apresoline) 10 mg SLOW IVP Q4H PRN PRN Reason: SBP > 160/DBP > 100 Last Admin: 05/03/18 16:59 Dose: 10 mg Labetalol HCl (Normodyne) 20 mg SLOW IVP Q4H PRN PRN Reason: SYS>160 Last Admin: 05/04/18 01:20 Dose: 20 mg Lidocaine (Lidoderm 5% Patch) 2 patch TD HS [facility] Last Admin: 05/05/18 20:58 Dose: 2 patch Miscellaneous Medication (Lidocaine Patch Removal) 2 each TOP 0900 [facility] Last Admin: 05/06/18 11:11 Dose: Not Given Morphine Sulfate (Morphine) 2 mg SLOW IVP Q2H PRN PRN Reason: Breakthrough Pain Last Admin: 05/04/18 20:31 Dose: 2 mg Morphine Sulfate (Ms Contin) 30 mg PO Q12HR [facility] Last Admin: 05/06/18 11:09 Dose: 30 mg Pantoprazole Sodium (Protonix) 40 mg IVP 2100 [facility] Last Admin: 05/05/18 20:58 Dose: 40 mg Pantoprazole Sodium (Protonix) 40 mg PO DAILY PRN PRN Reason: Indigestion Sertraline HCl (Zoloft) 100 mg PO DAILY [facility] Last Admin: 05/06/18 11:09 Dose: 100 mg
[2018-05-06] MEDS: Pantoprazole 40 MG VIAL IVP SCH (20:48)
[2018-05-06] MEDS: HYDROcodone/Acetaminophen 10/325 mg Tablet PO PRN (20:49)
[2018-05-06] MEDS: Lidocaine 5% Patch TD SCH (22:07)
[2018-05-07] MEDS: Cyclobenzaprine 10 MG TAB PO PRN (03:20)
[2018-05-07 06:12] LABS: #Basophils 0.1 thou/uL (0.0-0.2); #Eosinphils 0.4 thou/uL (0.0-0.7); #Lymphocytes 1.4 thou/uL (1.20-3.40); #Monocytes 0.6 thou/uL (0.11-0.59); #Neutrophils 3.6 thou/uL (1.40-6.50); %Basophils 0.9 % (0.0-1.0); %Eosinophils 7.4 % (0.0-10.0); %Lymphocytes 22.5 % (21.0-51.0); %Monocytes 9.7 % (0.0-10.0); %Neutrophils 59.6 % (42.0-75.0); Hemoglobin 7.6 g/dL (12.0-16.0); Mean Corpuscular HGB CONC 33.7 g/dL (32.0-36.0); Mean Corpuscular Hemoglobin 30.1 pg (27.0-31.0); Mean Corpuscular Volume 89.3 fL (78.0-98.0); Mean Platelet Volume 10.1 fL (7.4-10.4); Platelet Count 98 thou/uL (130-400); RBC Distribution Width 16.1 % (11.5-14.5); Red Blood Cell (RBC) Count 2.53 mill/uL (4.20-5.40)
[2018-05-07 06:28] LABS: Anion Gap 12 mmol/L (10-20); BUN (Urea Nitrogen) 13 mg/dL (9.8-20.1); Calc. Creatinine Clearance 53 mL/min (70-130); Calcium 8.5 mg/dL (7.8-10.44); Carbon Dioxide 27 mmol/L (22-29); Chloride 104 mmol/L (98-107); Estimated GFR-MDRD 55; Glucose 78 mg/dL (70-105); Potassium 3.6 mmol/L (3.5-5.1); Sodium 139 mmol/L (136-145)
[2018-05-07] MEDS: Amlodipine 5 MG TAB PO SCH (08:52)
[2018-05-07] MEDS: Docusate 100 MG CAP PO SCH ×3 (08:52→21:26)
[2018-05-07] MEDS: Lidocaine Patch Removal 1 EACH TOP SCH (08:53)
[2018-05-07] MEDS: Amlodipine 10 MG TAB PO SCH (08:53)
[2018-05-07] MEDS: Morphine ER 30 MG TAB PO SCH ×2 (08:54→21:26)
--- NOTE | 2018-05-07 09:34 | RAD ---
CHEST 2 VIEWS: COMPARISON: 05/06/2018. HISTORY: Odynophagia. FINDINGS: Stable pleural and parenchymal changes in the left hemithorax. Stable configuration of the cardiac s ilhouette and stable aeration of the right lung. Right-sided PICC line is again demonstrated. IMPRESSION: No significant interval change. POS: [facility]
--- NOTE | 2018-05-07 16:06 | PDOC.PN ---
- Subjective Encounter Start Date: 05/07/18 Encounter Start Time: 07:00 Pt seen for followup re: acute pain. Feels better. - Objective Resuscitation Status - Order Detail: 05/03/18 13:51 Resuscitation Status Routine Resuscitation Status: DNAR: NO Resuscitation Discussed with: Jacquie Duenas Additional comments: Written order MAR Reviewed: Yes Vital Signs & Weight: Vital Signs (12 hours) Temp Pulse Resp BP BP BP Pulse Ox 05/07/18 12:05 97.9 F 91 18 119/55 L 93 L 05/07/18 08:53 90 138/66 05/07/18 08:52 90 138/66 05/07/18 08:00 93 L 05/07/18 07:08 98.1 F 70 16 131/60 93 L Weight Admit Weight 126 lb 2 oz Weight 126 lb 2 oz I&O: 05/06/18 05/07/18 05/08/18 06:59 06:59 06:59 Intake Total 1200 Balance 1200 Result Diagrams: 05/07/18 06:06 05/07/18 06:06 Additional Labs: Labs reviewed by me Phys Exam - Physical Examination Constitutional: NAD HEENT: moist MMs Neck: supple Respiratory: clear to auscultation bilateral Cardiovascular: RRR Gastrointestinal: soft Neurological: moves all 4 limbs Psychiatric: normal affect Dx/Plan (1) Acute pain Code(s): R52 - PAIN, UNSPECIFIED Status: Acute Comment: Improved since admission, awaiting GI series (2) Anemia Code(s): D64.9 - ANEMIA, UNSPECIFIED Status: Chronic Qualifiers: Anemia type: unspecified type Qualified Code(s): D64.9 - Anemia, unspecified Comment: hemoglobin 7.6 today (3) Hypertension Code(s): I10 - ESSENTIAL (PRIMARY) HYPERTENSION Status: Chronic Qualifiers: Hypertension type: essential hypertension Qualified Code(s): I10 - Essential (primary) hypertension Comment: controlled (4) Uterine cancer Code(s): C55 - MALIGNANT NEOPLASM OF UTERUS, PART UNSPECIFIED Status: Chronic Comment: Oncology following (5) Acute kidney injury Code(s): N17.9 - ACUTE KIDNEY FAILURE, UNSPECIFIED Status: Resolved (6) Hypokalemia Code(s): E87.6 - HYPOKALEMIA Status: Resolved - Plan * . Review of Systems - Review of Systems Cardiovascular: negative: chest pain, palpitations, orthopnea, paroxysmal nocturnal dyspnea, edema, light headedness Gastrointestinal: negative: Nausea, Vomiting, Abdominal Pain, Diarrhea, Constipation, Melena, Hematochezia - Medications/Allergies Allergies/Adverse Reactions: Allergies Allergy/AdvReac Type Severity Reaction Status Date / Time Sulfa (Sulfonamide Allergy Hives Verified 05/03/18 14:12 Antibiotics) Medications: Current Medications Acetaminophen (Tylenol) 650 mg PO Q4H PRN PRN Reason: Headache/Fever or Pain Last Admin: 05/05/18 18:33 Dose: 650 mg Hydrocodone Bitart/Acetaminophen (Con[place]us 10/325) 1 tab PO Q6HR PRN PRN Reason: Pain IF ABLE TO TAKE PO Last Admin: 05/06/18 20:49 Dose: 1 tab Amlodipine Besylate (Norvasc) 5 mg PO DAILY [facility] Last Admin: 05/07/18 08:52 Dose: 5 mg Amlodipine Besylate (Norvasc) 10 mg PO DAILY [facility] Last Admin: 05/07/18 08:53 Dose: 10 mg Cyclobenzaprine HCl (Flexeril) 10 mg PO BID PRN PRN Reason: Muscle Spasm Last Admin: 05/07/18 03:20 Dose: 10 mg Docusate Sodium (Colace) 100 mg PO TID [facility] Last Admin: 05/07/18 15:06 Dose: 100 mg Hydralazine HCl (Apresoline) 10 mg SLOW IVP Q4H PRN PRN Reason: SBP > 160/DBP > 100 Last Admin: 05/03/18 16:59 Dose: 10 mg Labetalol HCl (Normodyne) 20 mg SLOW IVP Q4H PRN PRN Reason: SYS>160 Last Admin: 05/04/18 01:20 Dose: 20 mg Lidocaine (Lidoderm 5% Patch) 2 patch TD HS [facility] Last Admin: 05/06/18 22:07 Dose: 2 patch Miscellaneous Medication (Lidocaine Patch Removal) 2 each TOP 0900 [facility] Last Admin: 05/07/18 08:53 Dose: Not Given Morphine Sulfate (Morphine) 2 mg SLOW IVP Q2H PRN PRN Reason: Breakthrough Pain Last Admin: 05/04/18 20:31 Dose: 2 mg Morphine Sulfate (Ms Contin) 30 mg PO Q12HR [facility] Last Admin: 05/07/18 08:54 Dose: 30 mg Pantoprazole Sodium (Protonix) 40 mg IVP 2100 [facility] Last Admin: 05/06/18 20:48 Dose: 40 mg Pantoprazole Sodium (Protonix) 40 mg PO DAILY PRN PRN Reason: Indigestion Sertraline HCl (Zoloft) 100 mg PO DAILY [facility] Last Admin: 05/07/18 08:54 Dose: 100 mg
[2018-05-07] MEDS: Pantoprazole 40 MG VIAL IVP SCH (21:27)
[2018-05-07] MEDS: Lidocaine 5% Patch TD SCH (21:29)
[2018-05-08 06:39] LABS: #Basophils 0.1 thou/uL (0.0-0.2); #Eosinphils 0.5 thou/uL (0.0-0.7); #Lymphocytes 1.5 thou/uL (1.20-3.40); #Monocytes 0.5 thou/uL (0.11-0.59); #Neutrophils 2.9 thou/uL (1.40-6.50); %Basophils 1.5 % (0.0-1.0); %Eosinophils 8.6 % (0.0-10.0); %Lymphocytes 27.5 % (21.0-51.0); %Monocytes 9.6 % (0.0-10.0); %Neutrophils 52.9 % (42.0-75.0); Hemoglobin 7.8 g/dL (12.0-16.0); Mean Corpuscular HGB CONC 33.4 g/dL (32.0-36.0); Mean Corpuscular Hemoglobin 29.9 pg (27.0-31.0); Mean Corpuscular Volume 89.6 fL (78.0-98.0); Mean Platelet Volume 9.1 fL (7.4-10.4); Platelet Count 107 thou/uL (130-400); White Blood Cell (WBC) Count 5.5 thou/uL (4.8-10.8)
[2018-05-08 06:53] LABS: Anion Gap 13 mmol/L (10-20); BUN (Urea Nitrogen) 12 mg/dL (9.8-20.1); Calc. Creatinine Clearance 54 mL/min (70-130); Calcium 8.6 mg/dL (7.8-10.44); Carbon Dioxide 27 mmol/L (22-29); Chloride 106 mmol/L (98-107); Estimated GFR-MDRD 56; Glucose 76 mg/dL (70-105); Potassium 3.6 mmol/L (3.5-5.1); Sodium 142 mmol/L (136-145)
[2018-05-08 07:39] VITALS: TEMP 98.6
[2018-05-08] MEDS: Amlodipine 5 MG TAB PO SCH (08:26)
[2018-05-08] MEDS: Docusate 100 MG CAP PO SCH ×2 (08:27→15:30)
[2018-05-08] MEDS: Amlodipine 10 MG TAB PO SCH (08:27)
[2018-05-08] MEDS: Morphine ER 30 MG TAB PO SCH (08:27)
[2018-05-08 08:29] VITALS: BP 155/72
[2018-05-08] MEDS: Lidocaine Patch Removal 1 EACH TOP SCH (08:29)
[2018-05-08] MEDS: Cyclobenzaprine 10 MG TAB PO PRN (09:31)
[2018-05-08] MEDS ORDERED: traMADol HCl 50 MG TAB PO PRN (17:51)
[2018-05-08] MEDS ORDERED: Acetaminophen/Codeine 30-300mg Tablet PO PRN (17:51)
[2018-05-08] MEDS: Lidocaine 5% Patch TD SCH (18:09)
--- NOTE | 2018-05-09 00:19 | DIS ---
DATE OF ADMISSION: 05/03/2018 DATE OF DISCHARGE: 05/08/2018 PRIMARY CARE PROVIDER: Christina Rice, BU[employer]ING AND SUEDING MACHINE OPERATOR-C DISCHARGE DIAGNOSES: 1. Odynophagia. 2. Acute kidney injury. 3. Anemia. 4. Hypokalemia. CONSULTATION DURING THIS HOSPITALIZATION: 1. Oncology, Ms. Duenas. 2. General Surgery, Dr. Null. CONDITION OF PATIENT ON THE DAY OF DISCHARGE: Stable. Ms. Martin reports that her pain has improved. Vital signs are stable. S1 and S2 are heard, regular. Lungs are clear to auscultation bilaterally. HOSPITAL COURSE: Ms. Martin is a pleasant 58-year-old lady, who was admitted to [facility] for odynophagia on 05/03/2018. Please refer to Dr. Silva's history and physical note dated 05/03/2018, for further details. She was seen by General Surgery Service. Given her history of recent cholecystectomy and the fact that she also had pain in the right upper quadrant, she underwent HIDA scan, which did not show any evidence of common duct obstruction. There was no evidence to suggest a biliary leak. She was managed with pain medications. She also had soft tissue neck on the CT at the time of admission, which showed a stable infraclavicular mass, small left pleural effusion with adjacent atelectasis, stable hepatic cyst, stable left renal cyst, stable metastatic lymphadenopathy in the retroperitoneum and stable anterior mediastinal nodule which may represent a stable enlarged mediastinal lymph node. General Surgery Service recommended esophagogram. She underwent esophagogram on 05/08/2018. However, due to technical difficulties, the radiologist is unable to report on this tests at this time. The patient preferred to go home and follow up with her primary care provider for the test. Her symptoms improved, and she is being discharged home in a stable condition. During this hospitalization, she also had acute kidney injury with an elevated creatinine of 1.29 on 05/04. It improved to 1.03 by 05/07/2018. When she had renal insufficiency, her lisinopril and hydrochlorothiazide were on hold and she was started on amlodipine. She is being transitioned back to lisinopril and hydrochlorothiazide prior to discharge. DISCHARGE MEDICATIONS: 1. Colace 100 mg three times a day. 2. Hydrochlorothiazide 25 mg daily. 3. Omeprazole 20 mg daily as needed. 4. Sertraline 100 mg daily. 5. Tylenol No. 3 one tablet every 6 hours as needed. 6. Flexeril 10 mg 2 times a day as needed. 7. Lidocaine 5% patch two patches at bedtime, with a prescription for 30 patches. 8. Lisinopril 20 mg daily. 9. Tramadol 50 mg every 6 hours as needed. DISCHARGE INSTRUCTIONS: The patient has been cautioned about not driving or operating heavy machinery while she is using Flexeril and pain medications. She expressed understanding. She is advised to follow up with her primary care provider for results of the esophagogram. She is also advised to follow up with Oncology Service as outpatient and General Surgery Service as outpatient. Many thanks for allowing me to participate in your patient's care. Please feel free to contact me with any questions or concerns. DISCHARGE DESTINATION: Home. TOTAL AMOUNT OF TIME SPENT COORDINATING THIS DISCHARGE: 33 minutes. Job ID: [id number]
--- NOTE | 2018-05-09 08:52 | RAD ---
UPPER GI WITH AIR CONTRAST ESOPHAGRAM: HISTORY: Chest pain. Dysphagia. FINDINGS: The esophagus has a normal anatomic appearance. There is a small amount of gastroesophageal reflux. A 12 mm barium tablet traversed the esophagus without holdup. A large amount of particulate matter remained within the stomach at the time of the exam. There was decreased peristalsis of the stomach. Contrast material within the colon obscured detail. The duode nal bulb had a normal appearance. IMPRESSION: 1. Small amount of gastroesophageal reflux. 2. No significant hiatal hernia. 3. Diminished gastric peristalsis. POS: [facility]
== END 2018-05-08 18:15 | disposition home health service (06) | DRG 392 ==
LOC: ONC 13:40
PROVIDERS: ADMIT Internal Medicine; ATTEND Internal Medicine
DX: R13.10 Dysphagia, unspecified (principal); N17.9 Acute kidney failure, unspecified; C79.82 Secondary malignant neoplasm of genital organs; I10 Essential (primary) hypertension; E87.5 Hyperkalemia; Z88.2 Allergy status to sulfonamides; D63.0 Anemia in neoplastic disease; Z79.899 Other long term (current) drug therapy; Z79.891 Long term (current) use of opiate analgesic; F32.9 Major depressive disorder, single episode, unspecified; F41.9 Anxiety disorder, unspecified; M54.2 Cervicalgia; N28.1 Cyst of kidney, acquired; K76.89 Other specified diseases of liver; R59.1 Generalized enlarged lymph nodes
CPT/HCPCS: 36415; 36430; 70491; 71046; 71260; 74177; 74247; 78226; 80048; 83735; 84132; 85025; 86850; 86900; 86901; A9537; C9113; J0360; J1642; J2270; P9016

== ENCOUNTER 2018-06-04 16:44 | Inpatient (IN) | payer OTHER ==
[2018-06-04] MEDS ORDERED: Ondansetron PF 4 MG/2 ML Vial SLOW IVP PRN (17:41)
[2018-06-04] MEDS: Sodium Chloride 0.9% 1,000 ML IV SCH (17:50)
[2018-06-04] MEDS: cloNIDine 0.1 MG TAB PO PRN (18:51)
[2018-06-04] MEDS ORDERED: Guaifenesin DM 100-10/5 ML UDCUP PO PRN (19:23)
[2018-06-04] MEDS ORDERED: Acetaminophen 650 MG Suppository PR PRN (19:23)
[2018-06-04] MEDS ORDERED: Senokot S 8.6-50 MG TAB PO PRN (19:23)
[2018-06-04] MEDS ORDERED: Labetalol HCl 100 MG/20 ML VIAL SLOW IVP PRN (19:41)
[2018-06-04] MEDS ORDERED: Potassium Chloride 20 MEQ/100 ML PREMIX BAG IVPB SCH (19:45)
[2018-06-04] MEDS: Metoprolol Tartrate 50 MG TAB PO SCH (20:41)
--- NOTE | 2018-06-04 20:56 | RAD ---
ACUTE ABDOMEN SERIES INCLUDING FRONTAL VIEW CHEST AND TWO VIEW ABDOMEN SERIES: INDICATIONS: Nausea and vomiting. FINDINGS: There is a partially imaged right PICC line with the tip terminating at the cavoatrial junction. The lungs are clear. No free air beneath the hemidiaphragms. Bowel gas pattern is nonspecific. Multip le calcifications overly the pelvis, favoring phleboliths. There are multiple clips in the right upp er quadrant. Otherwise, no significant abnormality is seen. IMPRESSION: No acute abnormalities are identified. POS: [facility]
[2018-06-04] MEDS ORDERED: Famotidine 20 MG TAB PO SCH (21:00)
[2018-06-05] MEDS: Acetaminophen/Codeine 30-300mg Tablet PO PRN ×2 (00:25→15:00)
[2018-06-05] MEDS: Sodium Chloride 0.9% 1,000 ML IV SCH ×3 (00:30→17:43)
[2018-06-05] MEDS: Ondansetron PF 4 MG/2 ML Vial IVP PRN ×2 (01:34→19:45)
[2018-06-05] MEDS: cloNIDine 0.1 MG TAB PO PRN ×2 (02:08→10:14)
--- NOTE | 2018-06-05 02:33 | HP ---
PRIMARY CARE PHYSICIAN: TRISH Monroy-Damian. CHIEF COMPLAINT: Nausea, vomiting, and diarrhea. HISTORY OF PRESENT ILLNESS: This is a 58-year-old white female with a known history of uterine cancer, metastatic to the lymph nodes. She follows at the [facility] and has been receiving chemotherapy. Ever since she started a new chemotherapy, she has had severe high blood pressure and over the last month and a half she has had continued daily episodes of nausea and vomiting. She has lost over 40 pounds since then. The nausea and vomiting comes and goes in episodes, but she is not able to eat a good meal in a couple of weeks and then this morning, she had a prolonged episode of watery diarrhea, no blood or mucus in it. She was seen at the [facility] and sent here for admission. PAST MEDICAL HISTORY: 1. Metastatic uterine cancer. 2. Anemia of chronic disease. 3. Hypertension, worsened with chemotherapy. 4. Infected MediPort removed, now with PICC line. 5. Acalculous cholecystitis, status post cholecystectomy. PAST SURGICAL HISTORY: 1. Appendectomy. 2. Abdominal hysterectomy and bilateral salpingo-oophorectomy. 3. Lymph node dissection. 4. Cholecystectomy. 5. MediPort placement and now removal. 6. PICC line placement. FAMILY HISTORY: No significant or pertinent medical history related to her admission. SOCIAL HISTORY: No history of tobacco, alcohol, or illicit drug use. She states that her is her surrogate medical decision maker. ALLERGIES: SULFA. CURRENT MEDICATIONS: 1. Hydrochlorothiazide 25 mg daily. 2. Lisinopril 20 mg daily. 3. Tylenol with Codeine 1 tablet every 6 hours as needed for pain. 4. Sertraline 100 mg daily. REVIEW OF SYSTEMS: CONSTITUTIONAL: No fevers, no chills. She has had weight loss as per HPI. EYES: No double vision or blurred vision. ENT: No congestion, drainage, or sore throat. CARDIOVASCULAR: No chest pain or palpitations. PULMONARY: No wheezing, coughing, or shortness of breath. GASTROINTESTINAL: See HPI. No significant abdominal pain right now, though she had gurgling with cramping earlier associated with the diarrhea. GENITOURINARY: No dysuria or hematuria. MUSCULOSKELETAL: No muscle aches or joint pains. SKIN: No rashes or lesions noted. NEUROLOGIC: No numbness, tingling, or focal weakness. PHYSICAL EXAMINATION: VITAL SIGNS: Blood pressure 201/95, pulse 97, respirations 20, O2 sat 100% on room air, temperature 98.8. GENERAL: This is a well-developed, thin white female. HEENT: Pupils equal, round, and reactive to light. Oropharynx clear without lesions, erythema, or exudate. She does have some dry mucous membranes. NECK: Supple. She has significant lymphadenopathy, especially they are on the base of her neck and clavicles. Supraclavicular lymph nodes are enlarged and tender to palpation. No redness or fluctuance. HEART: Regular rate and rhythm. No murmurs, rubs, or gallops. LUNGS: Clear to auscultation bilaterally. No wheezes, crackles, or rhonchi. ABDOMEN: Soft. Minimal soreness to palpation, but no guarding or rebound tenderness. No hepatosplenomegaly or other masses. She does have intact bowel sounds. EXTREMITIES: No clubbing, cyanosis, or edema. SKIN: No rashes or lesions noted. NEUROLOGIC: She has intact strength in all extremities and no facial droop. LABORATORY DATA: Complete metabolic panel with a potassium of 3.3, chloride of 101, carbon dioxide of 16, BUN of 30, and creatinine of 1.27, glucose of 108. CBC has not been done yet. ASSESSMENT: 1. Recurrent intractable nausea and vomiting, now with diarrhea. Concern for infection versus chemotherapy affect versus direct cancer affect. The patient has been started on Levaquin already by Oncology. I do not see if any blood culture has been drawn. We will draw CBC and repeat basic metabolic panel in the morning and we will continue Levaquin. We will treat the patient with Zofran as needed and we will add Phenergan if Zofran is inadequate to control her symptoms; we will not give it IV at this time. 2. Mild tachycardia with symptoms concerning for infection. We will check a CBC and see if she has an elevated white blood cell count. She is afebrile currently, so we will not need SIRS or sepsis criteria at this time. 3. Severe hypertension with hypertensive urgency. We will give p.r.n. labetalol, hydralazine, and clonidine as needed. Keep the blood pressure down below 180 systolic. We will also start metoprolol 50 mg twice a day as we will need to hold her lisinopril and hydrochlorothiazide until renal function improves. 4. Acute renal failure. We will hold lisinopril and hydrochlorothiazide for now and we will hydrate with IV fluids and then we will resume the lisinopril and hydrochlorothiazide as we are able to. 5. Hypokalemia. We will replace with IV potassium. 6. Gastrointestinal prophylaxis. We will put the patient on Pepcid twice a day. 7. Deep venous thrombosis prophylaxis. We will put the patient on Lovenox and SCDs while in bed. 8. Code status. I did discuss this with the patient. She is do not attempt resuscitation. Should she be incapacitated, her will be her medical decision maker, his name is Tonny Martin. Job ID: [id number]
[2018-06-05 05:20] LABS: #Eosinphils 0.1 thou/uL (0.0-0.7); #Lymphocytes 1.4 thou/uL (1.20-3.40); #Monocytes 0.3 thou/uL (0.11-0.59); %Basophils 0.2 % (0.0-1.0); %Eosinophils 0.7 % (0.0-10.0); %Lymphocytes 14.3 % (21.0-51.0); %Monocytes 3.3 % (0.0-10.0); %Neutrophils 81.4 % (42.0-75.0); Hemoglobin 6.1 g/dL (12.0-16.0); Mean Corpuscular Hemoglobin 29.4 pg (27.0-31.0); Mean Corpuscular Volume 89.1 fL (78.0-98.0); Platelet Count 54 thou/uL (130-400); Red Blood Cell (RBC) Count 2.08 mill/uL (4.20-5.40); White Blood Cell (WBC) Count 9.9 thou/uL (4.8-10.8)
[2018-06-05 05:38] LABS: Anion Gap 10 mmol/L (10-20); BUN (Urea Nitrogen) 24 mg/dL (9.8-20.1); Calc. Creatinine Clearance 39 mL/min (70-130); Calcium 8.6 mg/dL (7.8-10.44); Carbon Dioxide 19 mmol/L (22-29); Chloride 113 mmol/L (98-107); Estimated GFR-MDRD 46; Glucose 88 mg/dL (70-105); Potassium 3.3 mmol/L (3.5-5.1); Sodium 139 mmol/L (136-145)
[2018-06-05] MEDS ORDERED: Potassium Chloride 20 MEQ/100 ML PREMIX BAG IVPB SCH (07:15)
--- NOTE | 2018-06-05 07:17 | PDOC.PN ---
- Subjective Encounter Start Date: 06/05/18 Encounter Start Time: 10:00 Subjective: Patient with persistent nausea. Retching this morning. Not able to tolerate -: oral food. - Objective Resuscitation Status - Order Detail: 06/04/18 19:18 Resuscitation Status Routine Resuscitation Status: DNAR: NO Resuscitation Discussed with: Patient MAR Reviewed: Yes Vital Signs & Weight: Vital Signs (12 hours) Temp Pulse Resp BP BP Pulse Ox 06/05/18 04:34 98.2 F 80 16 143/65 H 98 06/05/18 03:00 172/78 H 06/05/18 02:08 92 16 184/94 H 184/94 H 06/05/18 01:39 197/105 H 06/05/18 00:48 98.2 F 79 18 185/85 H 98 06/04/18 20:40 100 06/04/18 20:10 98.2 F 100 18 147/86 H 100 06/04/18 19:18 100 Weight Weight 109 lb 12.8 oz Result Diagrams: 06/05/18 05:15 06/05/18 05:15 Radiology Reviewed by me: Yes (Acute abd series and CXR negative for SBO, infiltrate) Phys Exam - Physical Examination Constitutional: NAD HEENT: moist MMs Respiratory: no wheezing, no rales, no rhonchi Cardiovascular: RRR, no significant murmur Gastrointestinal: soft, no distention mild TTP RADHA and RUQ at surgical site, persistent from surgery, very loud bowel sounds, no masses Musculoskeletal: no edema Neurological: non-focal, moves all 4 limbs Psychiatric: normal affect, A&O x 3 Dx/Plan (1) Acute gastroenteritis Code(s): K52.9 - NONINFECTIVE GASTROENTERITIS AND COLITIS, UNSPECIFIED Status : Acute Comment: possibly infective vs. chemotherapy effect vs. dirrect cancer effect (2) Sepsis Code(s): A41.9 - SEPSIS, UNSPECIFIED ORGANISM Status: Ruled-out Comment: WBC normal, no fever, tachycardia resolved with fluids (3) Hypertensive urgency Code(s): I16.0 - HYPERTENSIVE URGENCY Status: Acute Comment: improved, still holding JIMBO-I and HCTZ due to elevated creatinine (4) Acute on chronic renal failure Code(s): N17.9 - ACUTE KIDNEY FAILURE, UNSPECIFIED; N18.9 - CHRONIC KIDNEY DISEASE, UNSPECIFIED Status: Acute Qualifiers: Chronic kidney disease stage: stage 2 (mild) Comment: Continue IV fluid replacement, reinstate JIMBO-I and HCTZ once improved (5) Hypokalemia Code(s): E87.6 - HYPOKALEMIA Status: Acute Comment: Persistent, will give more potassium this morning - Plan cont current plan of care, continue antibiotics, out of bed/ambulate, DVT proph w/lovenox, DVT proph w/SCDs CT scan to rule out obstruction/post op complication. GI consultation. * . - Discharge Day Encounter end time: 10:10
[2018-06-05] MEDS ORDERED: Potassium Chloride 20 MEQ in Premix Bag 1 BAG IVPB SCH (07:30)
[2018-06-05] MEDS: Enoxaparin Sodium 40 MG/0.4 ML SYRINGE SC SCH (09:25)
[2018-06-05] MEDS: Metoprolol Tartrate 50 MG TAB PO SCH ×2 (09:25→22:46)
[2018-06-05] MEDS: Pantoprazole 40 MG VIAL IVP SCH (09:25)
[2018-06-05] MEDS: hydrALAZINE 20 MG/ML VIAL SLOW IVP PRN ×3 (10:50→22:52)
[2018-06-05] MEDS: Sucralfate 1 GM TAB PO SCH ×3 (12:10→22:47)
[2018-06-05] MEDS ORDERED: ISOVUE-370 76%-LOCM 1 ML ONE (13:18)
--- NOTE | 2018-06-05 14:51 | CON ---
DATE OF CONSULTATION: 06/05/2018 HISTORY OF PRESENT ILLNESS: Ms. Martin is a 58-year-old female, who I know very well with metastatic endometrial carcinoma with metastasis to bilateral cervical and mediastinal lymph nodes. She also has known peritoneal disease, although this has been stable on IV chemotherapy with Doxil over the last several months. She presented 1 month ago with a port infection as well as acute cholecystitis and at that time had the port removed as well as the cholecystectomy. Since the cholecystectomy, she has had recurrent nausea and vomiting as well as weight loss and diarrhea. She has presented to my office multiple times and was admitted at the end of April with these complaints. GI was consulted and workup led to know significant conclusions. She did not have an EGD at that time. She was referred to them as an outpatient and EGD was recommended, although the patient was not sure she could afford it and it was never scheduled. She continues to have nausea and vomiting. She also complaints of right cervical pain, where her lymph nodes have been swollen recently. She came into my office with continued weight loss as well as dehydration on the day of admission and was directly admitted. Today, she denies fevers, although she did have fever last week. This appears to be responding to oral Levaquin as an outpatient. She was having a difficult time keeping Levaquin down as she had recurrent nausea and vomiting. She also has pain in the midepigastric area, which she has had off and on for years, but she says it has been much worse over the last 6 weeks since the cholecystectomy. The pain was well controlled with oral morphine, but again because of the nausea, she has not been able to keep the morphine down and the patient has gotten worse. She also states that she has lost probably 10 to 15 pounds since the cholecystectomy and this has been documented in my office. PAST MEDICAL HISTORY: 1. Metastatic endometrial carcinoma. 2. Hypertension, exacerbated by Avastin, which she was getting previously in the office. 3. Chronic renal insufficiency over the last year, possibly secondary to chemotherapy drugs. 4. Chronic anemia since the cholecystectomy, this has been worse, with some implication that she maybe bleeding as it continues to drop. CURRENT MEDICATIONS: 1. Tylenol p.r.n. 2. Tylenol No. 3 p.r.n. 3. Catapres 0.1 mg p.o. q.4 hours p.r.n. 4. Lovenox 40 mg subcu daily. 5. Pepcid 20 mg p.o. b.i.d. 6. Guaifenesin 15 mL p.o. q.4 hours p.r.n. 7. Hydralazine 10 mg IV q.4 hours p.r.n. 8. Labetalol 10 mg IV q.4 hours p.r.n. 9. Levaquin 500 mg IV daily. 10. Lopressor 50 mg p.o. b.i.d. 11. Ondansetron 4 mg p.o. q.6 hours p.r.n. and 8 mg IV q.8 hours p.r.n. 12. Potassium chloride and IV fluids. 13. Senokot 2 tabs p.o. b.i.d. 14. Zoloft 100 mg p.o. daily. ALLERGIES: SULFA. SOCIAL HISTORY: She lives in her and with her , who is quite supportive. Her daughter is also quite supportive. She denies tobacco or alcohol use. FAMILY HISTORY: Noncontributory. REVIEW OF SYSTEMS: Otherwise, 10-point review of systems is negative. Please see the history of present illness. PHYSICAL EXAMINATION: VITAL SIGNS: Temperature 98.2; pulse 80; respirations 16; O2 sat 98% on room air; and blood pressure currently 143/65, although on admission it was 184/94. GENERAL: She is somewhat chronically-ill appearing, but pleasant, in no acute distress. HEENT: Extraocular muscles are intact. Pupils are equal, round, and reactive to light. She has no oral cavity lesions. NECK: Supple, but she does have bilateral supraclavicular lymphadenopathy noted, worse on the right. CARDIOVASCULAR: Regular rate and rhythm. LUNGS: Clear to auscultation bilaterally. ABDOMEN: Normoactive bowel sounds. Soft. With some tenderness in the right upper quadrant and in the midepigastric area to palpation, but no rebounding, she does have guarding. EXTREMITIES: No edema. She does have right upper extremity PICC line in place, which is clean, dry, and intact. LABORATORY DATA: White blood cell count 9.9, hemoglobin on admission 6.1, and platelets 64,000. Sodium 139, potassium 3.2, chloride 113, anion gap 10, Co2 of 19, BUN 24, and creatinine 1.2. ASSESSMENT: Ms. Martin is a 58-year-old female with, 1. Metastatic uterine cancer, current stable on Doxil chemotherapy. 2. Recurrent nausea, vomiting, and midepigastric pain. 3. Acute on chronic anemia with a hemoglobin of 6.1 on admission. 4. Dehydration and weight loss. 5. Recurrent lymphadenitis of the right supraclavicular lymph nodes. PLAN: 1. I would recommend a GI consult. 2. IV fluids and blood transfusion. 3. She is still on IV antibiotics. 4. Add Carafate and a PPI, stop Pepcid. 5. Continue pain control with morphine. We will follow with you. Job ID: [id number]
[2018-06-05] MEDS: Ondansetron ODT 4 MG TAB PO PRN (18:13)
--- NOTE | 2018-06-05 20:55 | CT ---
ABDOMEN AND PELVIS CT WITH CONTRAST: Date: 06/05/18 Reference made to chest, abdomen, and pelvis CT dated 05/03/18. CLINICAL INDICATION: Pain. Concern for bowel obstruction. FINDINGS: There is prominent retroperitoneal adenopathy, which has progressed in size since comparison exam. Th ere is adjacent retroperitoneal fat stranding as well. Numerous hypodensities are seen throughout the liver, too small to definitively characterize, grossly stable. There is colonic diverticulosis. Trac e pericardial fluid is present. No evidence of bowel obstruction. No free air or portal vein gas. Cindy dence of prior cholecystectomy. No acute osseous pathology. IMPRESSION: 1. Progressive adenopathy, which either relates to metastatic disease, or lymphoma. Correlate clinic ally. 2. Numerous small hepatic hypodensities, too small to definitively characterize, although grossly st able to comparison exam of 05/03/18. 3. No evidence of bowel obstruction. POS: JENIFER
[2018-06-05] MEDS: Promethazine HCl 25 MG/ML VIAL IM/IV PRN (22:38)
[2018-06-05] MEDS ORDERED: Acetaminophen 650 MG Suppository PR PRN (22:42)
[2018-06-05 23:03] LABS: ALT (SGPT) Less than 7 U/L (8-55); AST (SGOT) 15 U/L (5-34); Albumin 3.2 g/dL (3.5-5.0); Alkaline Phosphatase 122 U/L (40-150); Anion Gap 16 mmol/L (10-20); BUN (Urea Nitrogen) 22 mg/dL (9.8-20.1); Bilirubin, Total 0.7 mg/dL (0.2-1.2); Calc. Creatinine Clearance 42 mL/min (70-130); Calcium 8.6 mg/dL (7.8-10.44); Carbon Dioxide 14 mmol/L (22-29); Chloride 110 mmol/L (98-107); Estimated GFR-MDRD 49; Globulin 2.7 g/dL (2.4-3.5); Glucose 96 mg/dL (70-105); Potassium 3.1 mmol/L (3.5-5.1); Protein, Total 5.9 g/dL (6.0-8.3); Sodium 137 mmol/L (136-145)
--- NOTE | 2018-06-05 23:07 | PDOC.EVN ---
Event Note - Event Note Event Note: Patient with persistent N/V not responding to Zofran ODT. Triggered by any oral intake. She let an ice chip melt in her mouth which triggered persistent dry heaving. No hematemesis. Associated with occasional abdominal cramping. Complaining of a NORRIS. BP elevated. No blurred vision. Reports seeing "rain drop-like shadows" when she closes her eyes. No gait changes. No focal neurology. Speech normal. Phenergan prescribed as well as Acetaminophen NH. Will recheck electrolytes. Discussed with Dr. Pop who agrees with plan. Patient scheduled for EGD tomorrow. Further recommendations as per primary team.
--- NOTE | 2018-06-05 23:29 | CON ---
DATE OF CONSULTATION: 06/05/2018 GASTROENTEROLOGY CONSULTATION CHIEF COMPLAINT: Abdominal pain and nausea. HISTORY OF PRESENT ILLNESS: Ms. Martin is a 58-year-old woman, who has a history of metastatic uterine cancer. She has been receiving chemotherapy with her last dose having been on 05/24/2018. She has had persistent nausea and vomiting over the last couple of weeks, which is not typical of prior side effects from her chemotherapy. She feels like this is a different process. She has had mid epigastric cramping abdominal pain. She had 2 episodes of diarrhea yesterday, but otherwise no persistent diarrhea or constipation associated with this. No blood in the stool. No hematemesis. She has lost 40 pounds over the last couple years, 9 pounds in the last week. She has had no black stools. She did undergo cholecystectomy on May 03 for acalculous cholecystitis. She had right upper quadrant pain prior to that surgery that resolved with the surgery. She has had chronic anemia, but her hemoglobin was lower today than she has been at baseline and she is being given transfusion. PAST MEDICAL HISTORY: Metastatic uterine cancer diagnosed in 2017, hypertension, depression. PAST SURGICAL HISTORY: Appendectomy, hysterectomy with bilateral salpingo-oophorectomy, lymph node dissection with cholecystectomy, MediPort placement and removal. Most recently, her MediPort was removed due to infection and she now has a PICC line. SOCIAL HISTORY: Negative for tobacco, alcohol, or drugs. FAMILY HISTORY: Negative for GI malignancy. ALLERGIES: SULFA. MEDICATIONS: Currently include: 1. Enoxaparin. 2. Levofloxacin. 3. Metoprolol. 4. Pantoprazole. 5. Sertraline. 6. Sucralfate. REVIEW OF SYSTEMS: Negative x10 systems reviewed except as stated in the history of present illness. PHYSICAL EXAMINATION: GENERAL: She is pale. She is in no acute distress. Alert and oriented x3. HEENT: Eyes have no scleral icterus. Oropharynx is clear without lesions. No cervical or supraclavicular lymphadenopathy. VITAL SIGNS: Temperature is 98.2, blood pressure 164/78, pulse 76. LUNGS: Clear to auscultation bilaterally. HEART: Regular rate and rhythm without murmur. ABDOMEN: She has epigastric tenderness to palpation without guarding. Bowel sounds are present. EXTREMITIES: No lower extremity edema. Cranial nerves are grossly intact. LABORATORY DATA: White blood cell count 9.9, hemoglobin 6.1, platelets 54. Creatinine 1.21, bilirubin 0.1, AST 21, ALT 10, alkaline phosphatase 231. CA-125 of 465. Lipase was less than 4, however, that was tested on April 09. IMPRESSION: 1. Epigastric abdominal pain with nausea and vomiting for the last couple of weeks. She has a CT scan of the abdomen and pelvis ordered for this afternoon, has had the first couple bottles of contrast. We will await these findings. We will also rule out peptic ulcer or gastric outlet obstruction with endoscopy. Her current presentation has been atypical of any of her prior chemotherapy sessions. We will continue to evaluate for other causes. 2. Anemia. She has had chronic anemia and she has no overt signs of bleeding at this point. This may be more related to her chemotherapy. She is receiving transfusion today 2 units. RECOMMENDATIONS: 1. Continue proton pump inhibitor. 2. We will await CT scan results. 3. We will place her on the schedule for upper endoscopy for tomorrow and this can be canceled if it is not necessary based on CT findings. 4. Recheck liver tests and lipase. Job ID: [id number]
[2018-06-06] MEDS: Sodium Chloride 0.9% 1,000 ML IV SCH ×3 (05:17→18:03)
[2018-06-06 05:35] LABS: #Lymphocytes 0.8 thou/uL (1.20-3.40); #Monocytes 0.3 thou/uL (0.11-0.59); #Neutrophils 8.1 thou/uL (1.40-6.50); %Basophils 0.2 % (0.0-1.0); %Eosinophils 0.3 % (0.0-10.0); %Lymphocytes 8.2 % (21.0-51.0); %Monocytes 3.5 % (0.0-10.0); %Neutrophils 87.9 % (42.0-75.0); Hemoglobin 9.3 g/dL (12.0-16.0); Mean Corpuscular HGB CONC 33.7 g/dL (32.0-36.0); Mean Corpuscular Hemoglobin 29.8 pg (27.0-31.0); Mean Corpuscular Volume 88.5 fL (78.0-98.0); Mean Platelet Volume 10.4 fL (7.4-10.4); Platelet Count 45 thou/uL (130-400); Red Blood Cell (RBC) Count 3.11 mill/uL (4.20-5.40); White Blood Cell (WBC) Count 9.3 thou/uL (4.8-10.8)
[2018-06-06 05:55] LABS: Anion Gap 15 mmol/L (10-20); BUN (Urea Nitrogen) 22 mg/dL (9.8-20.1); Calc. Creatinine Clearance 41 mL/min (70-130); Calcium 8.5 mg/dL (7.8-10.44); Carbon Dioxide 16 mmol/L (22-29); Chloride 111 mmol/L (98-107); Estimated GFR-MDRD 48; Glucose 84 mg/dL (70-105); Sodium 139 mmol/L (136-145)
--- NOTE | 2018-06-06 07:11 | PDOC.PN ---
- Subjective Encounter Start Date: 06/06/18 Encounter Start Time: 09:00 Subjective: Patient reports nausea a bit better with phenergan than Zofran. Still -: not able to hold anything down. EGD for this morning. - Objective Resuscitation Status - Order Detail: 06/04/18 19:18 Resuscitation Status Routine Resuscitation Status: DNAR: NO Resuscitation Discussed with: Patient CHASITY Reviewed: Yes Vital Signs & Weight: Vital Signs (12 hours) Pulse 06/05/18 22:52 80 Weight Admit Weight 109 lb 12.8 oz Weight 109 lb 12.8 oz I&O: 06/05/18 06/06/18 06/07/18 06:59 06:59 06:59 Intake Total 700 Balance 700 Result Diagrams: 06/06/18 05:27 06/06/18 05:27 Phys Exam - Physical Examination Constitutional: NAD HEENT: moist MMs Respiratory: no wheezing, no rales, no rhonchi Cardiovascular: RRR, no significant murmur Gastrointestinal: soft, no distention, positive bowel sounds Musculoskeletal: no edema Neurological: non-focal, moves all 4 limbs Psychiatric: normal affect, A&O x 3 Dx/Plan (1) Acute gastroenteritis Code(s): K52.9 - NONINFECTIVE GASTROENTERITIS AND COLITIS, UNSPECIFIED Status : Acute Comment: possibly infective vs. chemotherapy effect vs. direct cancer effect, phenergan added (2) Sepsis Code(s): A41.9 - SEPSIS, UNSPECIFIED ORGANISM Status: Ruled-out Comment: WBC normal, no fever, tachycardia resolved with fluids (3) Hypertensive urgency Code(s): I16.0 - HYPERTENSIVE URGENCY Status: Acute Comment: improved, still holding JIMBO-I and HCTZ due to elevated creatinine, BP labile (4) Acute on chronic renal failure Code(s): N17.9 - ACUTE KIDNEY FAILURE, UNSPECIFIED; N18.9 - CHRONIC KIDNEY DISEASE, UNSPECIFIED Status: Acute Qualifiers: Chronic kidney disease stage: stage 2 (mild) Comment: Continue IV fluid replacement, reinstate JIMBO-I and HCTZ once improved, watch closely after IV contrast load (5) Hypokalemia Code(s): E87.6 - HYPOKALEMIA Status: Acute Comment: Persistent, will give more potassium this morning, check magnesium - Plan cont current plan of care, continue antibiotics, out of bed/ambulate, DVT proph w/lovenox, DVT proph w/SCDs Plan for EGD today by Dr. Ferreira * . - Discharge Encounter end time: 09:10
[2018-06-06] MEDS: Sucralfate 1 GM TAB PO SCH ×2 (08:13→11:42)
[2018-06-06] MEDS: Metoprolol Tartrate 50 MG TAB PO SCH ×2 (08:19→20:23)
[2018-06-06] MEDS: Pantoprazole 40 MG VIAL IVP SCH (08:21)
[2018-06-06] MEDS: hydrALAZINE 20 MG/ML VIAL SLOW IVP PRN (08:21)
[2018-06-06] MEDS: Potassium Chloride 20 MEQ in Premix Bag 1 BAG IVPB SCH ×2 (09:27→12:00)
[2018-06-06] MEDS: Promethazine HCl 25 MG/ML VIAL IM/IV PRN (09:30)
[2018-06-06] MEDS: Enoxaparin Sodium 40 MG/0.4 ML SYRINGE SC SCH (09:56)
[2018-06-06] MEDS ORDERED: Famotidine/PF 20 mg/2ml Vial ONE (11:48)
[2018-06-06] MEDS ORDERED: Metoclopramide HCl 10 MG/2 ML VIAL ONE ×2 (11:49→16:47)
[2018-06-06] MEDS ORDERED: Scopolamine 1.5 mg/72 hour Patch ONE (11:49)
[2018-06-06] MEDS ORDERED: PACU-Morphine 4MG/ML VIAL SLOW IVP PRN (12:26)
[2018-06-06] MEDS ORDERED: Meperidine HCl/PF 25 MG/ML VIAL SLOW IVP PRN (12:26)
[2018-06-06] MEDS ORDERED: Promethazine HCl 25 MG/ML VIAL SLOW IVP PRN (12:26)
[2018-06-06] MEDS ORDERED: Promethazine HCl 25 MG/ML VIAL IM PRN (12:26)
[2018-06-06] MEDS ORDERED: Ondansetron HCl/PF 4 MG/2 ML Vial IVP PRN (12:26)
--- NOTE | 2018-06-06 13:39 | OP ---
DATE OF PROCEDURE: 06/06/2018 PROCEDURE PERFORMED: Esophagogastroduodenoscopy. PREMEDICATION: Given by the Anesthesiology Department. PREPROCEDURE DIAGNOSES: 1. Persistent nausea and vomiting. 2. Anorexia. 3. Abdominal pain. 4. Progressive stage IV uterine cancer. POSTPROCEDURE DIAGNOSIS: Normal upper endoscopy. PROCEDURE IN DETAIL: Written consents were obtained prior to the procedure. After adequate sedation, the forward viewing endoscope was advanced down the stomach. It was passed into the third portion of duodenum. The visualized duodenum appeared normal. The bulb appeared normal. The pylorus was patent. The gastric antrum, body, fundus, and cardia all appeared normal. The Z-line was located at 40 cm from the incisors and was well demarcated. The lower, mid, and upper esophagus appeared normal. The patient tolerated the procedure well. ASSESSMENT: Normal upper endoscopy with visualized duodenum, stomach, and esophagus. RECOMMENDATIONS: Trial of dronabinol 5 mg p.o. b.i.d. for nausea, vomiting, and anorexia. Job ID: [id number]
[2018-06-06] MEDS: ALPRAZolam 0.25 MG TAB PO PRN (13:58)
[2018-06-06] MEDS ORDERED: Lidocaine 1% PF 5 ML VIAL ONE (16:47)
[2018-06-06] MEDS ORDERED: Metoprolol Tartrate 5 MG/5 ML VIAL ONE (16:47)
[2018-06-06] MEDS ORDERED: PROPOFOL 200 MG/20 ML VIAL ONE (16:47)
[2018-06-06] MEDS: Dronabinol 2.5 MG CAP PO SCH (18:00)
[2018-06-07] MEDS: hydrALAZINE 20 MG/ML VIAL SLOW IVP PRN ×2 (06:28→17:19)
[2018-06-07] MEDS: Pantoprazole 40 MG VIAL IVP SCH (08:28)
[2018-06-07] MEDS: Metoprolol Tartrate 50 MG TAB PO SCH ×2 (08:28→20:41)
[2018-06-07] MEDS: Enoxaparin Sodium 40 MG/0.4 ML SYRINGE SC SCH (08:28)
[2018-06-07] MEDS: cloNIDine 0.1 MG TAB PO PRN ×2 (08:28→16:16)
[2018-06-07] MEDS: Ondansetron ODT 4 MG TAB PO PRN (08:32)
--- NOTE | 2018-06-07 08:37 | PDOC.PN ---
- Subjective Encounter Start Date: 06/07/18 Encounter Start Time: 09:50 Subjective: Patient feeling a little better after starting the Marinol yesterday , was -: able to eat a little. IV fluids d/c'd due to some puffiness in hands. - Objective Resuscitation Status - Order Detail: 06/04/18 19:18 Resuscitation Status Routine Resuscitation Status: DNAR: NO Resuscitation Discussed with: Patient MAR Reviewed: Yes Vital Signs & Weight: Vital Signs (12 hours) Pulse BP BP 06/07/18 08:28 190/89 H 06/07/18 06:28 84 207/94 H 06/07/18 00:00 170/78 H 06/06/18 22:15 81 199/91 H 195/91 H 06/06/18 22:00 195/91 H Weight Admit Weight 109 lb 12.8 oz Weight 109 lb 12.8 oz I&O: 06/06/18 06/07/18 06/08/18 06:59 06:59 06:59 Intake Total 700 1480 Balance 700 1480 Result Diagrams: 06/07/18 08:30 06/07/18 08:30 Phys Exam - Physical Examination Constitutional: NAD HEENT: moist MMs Respiratory: no wheezing, no rales, no rhonchi Cardiovascular: RRR, no significant murmur Gastrointestinal: soft, positive bowel sounds Neurological: non-focal, moves all 4 limbs Psychiatric: normal affect, A&O x 3 Dx/Plan (1) Acute gastroenteritis Code(s): K52.9 - NONINFECTIVE GASTROENTERITIS AND COLITIS, UNSPECIFIED Status : Acute Comment: possibly infective vs. chemotherapy effect vs. direct cancer effect, phenergan added (2) Sepsis Code(s): A41.9 - SEPSIS, UNSPECIFIED ORGANISM Status: Ruled-out Comment: WBC normal, no fever, tachycardia resolved with fluids (3) Hypertensive urgency Code(s): I16.0 - HYPERTENSIVE URGENCY Status: Acute Comment: improved, still holding JIMBO-I and HCTZ due to elevated creatinine, BP labile (4) Acute on chronic renal failure Code(s): N17.9 - ACUTE KIDNEY FAILURE, UNSPECIFIED; N18.9 - CHRONIC KIDNEY DISEASE, UNSPECIFIED Status: Acute Qualifiers: Chronic kidney disease stage: stage 2 (mild) Comment: Continue IV fluid replacement, reinstate JIMBO-I and HCTZ once improved, watch closely after IV contrast load (5) Hypokalemia Code(s): E87.6 - HYPOKALEMIA Status: Acute Comment: Persistent, will give more potassium this morning, check magnesium - Plan cont current plan of care, out of bed/ambulate, DVT proph w/lovenox, DVT proph w /SCDs * . - Discharge Day Encounter end time: 10:00 Pulmonology Consult: Meds - Medications MAR Reviewed: Yes Medications: Current Medications Acetaminophen (Tylenol) 650 mg PO Q4H PRN PRN Reason: Headache/Fever/Mild Pain (1-3) Acetaminophen (Tylenol) 650 mg MS Q4H PRN PRN Reason: Headache/Fever/Mild Pain (1-3) Acetaminophen/Codeine Phosphate (Tylenol #3) 1 tab PO Q6HR PRN PRN Reason: Pain Last Admin: 06/05/18 15:00 Dose: 1 tab Alprazolam (Xanax) 0.25 mg PO Q8H PRN PRN Reason: Anxiety Last Admin: 06/06/18 13:58 Dose: 0.25 mg Clonidine (Catapres) 0.1 mg PO Q4H PRN PRN Reason: SBP > 180 Last Admin: 06/07/18 08:28 Dose: 0.1 mg Dronabinol (Marinol) 5 mg PO BID-[facility] Last Admin: 06/06/18 18:00 Dose: 5 mg Enoxaparin Sodium (Lovenox) 40 mg SC 0900 REPLACED BY [facility] Last Admin: 06/07/18 08:28 Dose: 40 mg Guaifenesin/Dextromethorphan (Robitussin Dm) 15 ml PO Q4H PRN PRN Reason: Cough Hydralazine HCl (Apresoline) 10 mg SLOW IVP Q4H PRN PRN Reason: Severe Hypertension Last Admin: 06/07/18 06:28 Dose: 10 mg Labetalol HCl (Labetalol Hcl) 10 mg SLOW IVP Q4H PRN PRN Reason: SBP > 180 Last Admin: 06/06/18 22:15 Dose: 10 mg Metoprolol Tartrate (Lopressor) 50 mg PO BID REPLACED BY [facility] Last Admin: 06/07/18 08:28 Dose: 50 mg Morphine Sulfate (Morphine) 2 mg SLOW IVP Q4H PRN PRN Reason: Pain Ondansetron HCl (Zofran Odt) 4 mg PO Q6H PRN PRN Reason: Nausea/Vomiting Last Admin: 06/07/18 08:32 Dose: 4 mg Ondansetron HCl (Zofran) 8 mg IVP Q8HR PRN PRN Reason: Nausea/Vomiting Last Admin: 06/05/18 19:45 Dose: 8 mg Pantoprazole Sodium (Protonix) 40 mg IVP DAILY REPLACED BY [facility] Last Admin: 06/07/18 08:28 Dose: 40 mg Promethazine HCl (Phenergan) 12.5 mg IM/IV Q6H PRN PRN Reason: Nausea/Vomiting Last Admin: 06/06/18 09:30 Dose: 12.5 mg Senna/Docusate Sodium (Senokot S) 2 tab PO BID PRN PRN Reason: Constipation Sertraline HCl (Zoloft) 100 mg PO DAILY REPLACED BY [facility] Last Admin: 06/07/18 08:28 Dose: 100 mg Sodium Chloride (Flush - Normal Saline) 10 ml IVF Q12HR REPLACED BY [facility] Last Admin: 06/07/18 08:28 Dose: 10 ml Sodium Chloride (Flush - Normal Saline) 10 ml IVF PRN PRN PRN Reason: Saline Flush Last Admin: 06/06/18 13:16 Dose: 10 ml - Allergies Allergies/Adverse Reactions: Allergies Allergy/AdvReac Type Severity Reaction Status Date / Time Sulfa (Sulfonamide Allergy Hives Verified 05/03/18 14:12 Antibiotics)
[2018-06-07 09:06] LABS: Mean Corpuscular HGB CONC 32.5 g/dL (32.0-36.0); Mean Corpuscular Hemoglobin 28.7 pg (27.0-31.0); Mean Corpuscular Volume 88.3 fL (78.0-98.0); Mean Platelet Volume 5.2 fL (7.4-10.4); Platelet Count 35 thou/uL (130-400); RBC Distribution Width 14.5 % (11.5-14.5); Red Blood Cell (RBC) Count 3.49 mill/uL (4.20-5.40)
[2018-06-07 09:07] LABS: #Eosinphils 0.1 thou/uL (0.0-0.7); #Lymphocytes 0.6 thou/uL (1.20-3.40); #Monocytes 0.3 thou/uL (0.11-0.59); %Basophils 0.4 % (0.0-1.0); %Eosinophils 0.8 % (0.0-10.0); %Lymphocytes 7.8 % (21.0-51.0); %Monocytes 3.3 % (0.0-10.0); %Neutrophils 87.7 % (42.0-75.0)
[2018-06-07 09:23] LABS: Anion Gap 16 mmol/L (10-20); BUN (Urea Nitrogen) 20 mg/dL (9.8-20.1); Calc. Creatinine Clearance 55 mL/min (70-130); Calcium 8.6 mg/dL (7.8-10.44); Carbon Dioxide 14 mmol/L (22-29); Chloride 114 mmol/L (98-107); Estimated GFR-MDRD 68; Glucose 97 mg/dL (70-105); Magnesium 1.4 mg/dL (1.6-2.6); Sodium 141 mmol/L (136-145)
[2018-06-07] MEDS: Dronabinol 2.5 MG CAP PO SCH ×2 (09:26→16:53)
[2018-06-07 11:42] LABS: Platelet Morphology Comment Appears Decreased; RBC Morphology Normal
--- NOTE | 2018-06-07 13:34 | PRG ---
DATE OF SERVICE: 06/07/2018 SUBJECTIVE: Ms. Martin is resting in bed. She feels the Marinol, which was started yesterday has helped her nausea, she actually ate for the first time today. She reports she dropped from 140 to about 110 during this period. She also reports that Dr. Plascencia explained to her yesterday on her PET scan, there is some carcinomatosis. Her EGD yesterday did not show any cause for nausea and vomiting and therefore, the Marinol was started. MEDICATIONS: 1. Tylenol. 2. Xanax. 3. Catapres. 4. Marinol 5 mg p.o. b.i.d. 5. Hydralazine. 6. Labetalol. 7. Lopressor. 8. P.r.n. morphine. 9. Zofran. 10. Protonix. 11. Phenergan. 12. Senokot. 13. Zoloft. PHYSICAL EXAMINATION: GENERAL: She is resting comfortably in bed. Family members are at bedside. VITAL SIGNS: Temperature is 98, pulse 90, blood pressure 190/89, it was 207/94 earlier today. ABDOMEN: Soft and nontender. LUNGS: Clear. HEART: Regular rate and rhythm. REVIEW OF SYSTEMS: The patient denies any history of vertigo or headaches. LABORATORY DATA: White count is 8, hemoglobin 10, platelet count is 35,000. Sodium 141, potassium 3, BUN and creatinine are 20 and 0.86. CA-125 was 496 as of June 05, lowest this has been was [address] scan of the abdomen and pelvis on the revealed numerous small hepatic hypodensities, stable from 05/03, and progressive adenopathy. There is no bowel obstruction. ASSESSMENT: I suspect that her nausea and vomiting probably is malignancy related. She seems to have low-grade disease in the abdomen with adenopathy and reported carcinomatosis and elevated CA-125. Her EGD showed no evidence of any ulcers or gastritis. At this point in time, she seems responding to conservative symptomatic management with Marinol and continue to that, we can always up the dose we need to. We will see how she does over the next day or so, hopefully she can eat better and may be able to go home. I do not have records of the previous PET scans to review. We will follow along with you. Job ID: [id number]
[2018-06-07] MEDS: Potassium Chloride 10 MEQ TAB PO SCH (17:20)
[2018-06-07] MEDS: Magnesium Oxide 400 MG TAB PO SCH (20:41)
[2018-06-08] MEDS: cloNIDine 0.1 MG TAB PO PRN (00:30)
[2018-06-08] MEDS: hydrALAZINE 20 MG/ML VIAL SLOW IVP PRN (04:06)
[2018-06-08 04:41] LABS: Platelet Count 27 thou/uL (130-400)
[2018-06-08 04:44] LABS: Anion Gap 10 mmol/L (10-20); BUN (Urea Nitrogen) 23 mg/dL (9.8-20.1); Calc. Creatinine Clearance 49 mL/min (70-130); Calcium 8.1 mg/dL (7.8-10.44); Carbon Dioxide 21 mmol/L (22-29); Chloride 113 mmol/L (98-107); Estimated GFR-MDRD 59; Glucose 100 mg/dL (70-105); Sodium 141 mmol/L (136-145)
[2018-06-08 05:06] LABS: #Eosinphils 0.1 thou/uL (0.0-0.7); #Lymphocytes 1.1 thou/uL (1.20-3.40); #Monocytes 0.3 thou/uL (0.11-0.59); #Neutrophils 3.7 thou/uL (1.40-6.50); %Basophils 0.9 % (0.0-1.0); %Eosinophils 2.6 % (0.0-10.0); %Lymphocytes 21.4 % (21.0-51.0); %Neutrophils 69.1 % (42.0-75.0); Hemoglobin 7.4 g/dL (12.0-16.0); MDiff Complete? YES; Mean Corpuscular HGB CONC 33.1 g/dL (32.0-36.0); Mean Corpuscular Hemoglobin 29.8 pg (27.0-31.0); Mean Corpuscular Volume 90.1 fL (78.0-98.0); Mean Platelet Volume 12.7 fL (7.4-10.4); Platelet Morphology Comment Appears Decreased; RBC Distribution Width 14.6 % (11.5-14.5); Red Blood Cell (RBC) Count 2.46 mill/uL (4.20-5.40); Schistocytes SLIGHT = 2-5 cells (100X) (0-1/hpf); White Blood Cell (WBC) Count 5.3 thou/uL (4.8-10.8)
[2018-06-08] MEDS: Acetaminophen/Codeine 30-300mg Tablet PO PRN ×2 (07:44→18:21)
[2018-06-08] MEDS: Pantoprazole 40 MG VIAL IVP SCH (07:44)
[2018-06-08] MEDS: Magnesium Oxide 400 MG TAB PO SCH ×2 (07:45→20:13)
[2018-06-08] MEDS: Potassium Chloride 10 MEQ TAB PO SCH ×2 (07:45→18:03)
[2018-06-08] MEDS: Metoprolol Tartrate 50 MG TAB PO SCH ×2 (07:47→20:17)
--- NOTE | 2018-06-08 08:40 | PDOC.PN ---
- Subjective Encounter Start Date: 06/08/18 Encounter Start Time: 08:00 Subjective: +Left earache. - Objective Resuscitation Status - Order Detail: 06/04/18 19:18 Resuscitation Status Routine Resuscitation Status: DNAR: NO Resuscitation Discussed with: Patient Vital Signs & Weight: Vital Signs (12 hours) Temp Pulse Resp BP BP Pulse Ox 06/08/18 05:30 160/62 H 06/08/18 04:14 98.8 F 73 16 180/81 H 98 06/08/18 04:06 72 180/83 H 06/08/18 00:44 99.0 F 72 18 192/88 H 97 06/08/18 00:30 192/88 H 06/07/18 20:40 148/72 H Weight Admit Weight 109 lb 12.8 oz Weight 109 lb 12.8 oz I&O: 06/07/18 06/08/18 06/09/18 06:59 06:59 06:59 Intake Total 1480 790 Balance 1480 790 Result Diagrams: 06/08/18 04:18 06/08/18 04:18 Phys Exam - Physical Examination HEENT: TM's clear Neck: no JVD Respiratory: clear to auscultation bilateral Cardiovascular: RRR Gastrointestinal: soft Musculoskeletal: no edema Neurological: moves all 4 limbs Psychiatric: normal affect, A&O x 3 Dx/Plan (1) Nausea & vomiting Code(s): R11.2 - NAUSEA WITH VOMITING, UNSPECIFIED Status: Acute Plan: Resolved. (2) Acute on chronic renal failure Code(s): N17.9 - ACUTE KIDNEY FAILURE, UNSPECIFIED; N18.9 - CHRONIC KIDNEY DISEASE, UNSPECIFIED Status: Acute Qualifiers: Chronic kidney disease stage: stage 2 (mild) Comment: DAVID resolved. (3) Hypertensive urgency Code(s): I16.0 - HYPERTENSIVE URGENCY Status: Acute Comment: Increase Lopressor to 75 mg bid Monitor BP. (4) Earache on left Code(s): H92.02 - OTALGIA, LEFT EAR Status: Acute Plan: Ear exam normal .. Analgesic prn. - Plan * .
[2018-06-08] MEDS: Dronabinol 2.5 MG CAP PO SCH ×2 (11:02→18:02)
--- NOTE | 2018-06-08 17:25 | PRG ---
DATE OF SERVICE: 06/08/2018 SUBJECTIVE: Ms. Martin states she has had no nausea. She eats 3 meals a day with no vomiting, her nurse confirms this. OBJECTIVE: VITAL SIGNS: Temperature is 98, pulse 78, blood pressure 166/77. LUNGS: Clear. ABDOMEN: Soft, nontender. LABORATORY DATA: Platelet count 27,000; hemoglobin 7.4, down from 10.0 on yesterday's lab. BUN and creatinine are 23 and 0.97. PROCEDURES: EGD by Dr. Dowling on 06/06/2018, normal. No biopsies obtained. ASSESSMENT: 1. Nausea, vomiting, resolved with Marinol. EGD normal with no cause of nausea, vomiting. 2. Drop in hemoglobin. It is unclear if that is true drop or not from 10 to 7.4. She was 6.1 on 06/05, 9.3, then 10, then 7.4, that may just be things bouncing out. She did have 2 units of blood on the . there are no overt signs of bleeding, at least GI bleeding and no abdominal pain retroperitoneal bleeding. At this time, we will sign off. If I can be of any further assistance in the patient's care, do not hesitate to contact me. I would continue her on the Marinol for palliation of her nausea, which I suspect is related to her uterine cancer. Job ID: [id number]
[2018-06-08] MEDS: Morphine 2 MG/ML SYRINGE SLOW IVP PRN (20:12)
[2018-06-08] MEDS: ALPRAZolam 0.25 MG TAB PO PRN (21:55)
[2018-06-08] MEDS ORDERED: Bisacodyl 10 MG SUPP PR PRN (22:53)
[2018-06-09] MEDS: Acetaminophen/Codeine 30-300mg Tablet PO PRN (00:04)
[2018-06-09] MEDS: cloNIDine 0.1 MG TAB PO PRN ×2 (00:06→23:35)
[2018-06-09] MEDS: Metoprolol Tartrate 50 MG TAB PO SCH ×2 (08:28→20:42)
[2018-06-09] MEDS: Magnesium Oxide 400 MG TAB PO SCH ×2 (08:28→20:44)
[2018-06-09] MEDS: Potassium Chloride 10 MEQ TAB PO SCH ×2 (08:28→16:32)
[2018-06-09] MEDS: Dronabinol 2.5 MG CAP PO SCH ×2 (08:28→16:32)
[2018-06-09 08:44] LABS: #Eosinphils 0.1 thou/uL (0.0-0.7); #Lymphocytes 0.8 thou/uL (1.20-3.40); #Monocytes 0.5 thou/uL (0.11-0.59); #Neutrophils 4.4 thou/uL (1.40-6.50); %Basophils 0.3 % (0.0-1.0); %Eosinophils 1.4 % (0.0-10.0); %Lymphocytes 13.2 % (21.0-51.0); %Monocytes 8.4 % (0.0-10.0); %Neutrophils 76.7 % (42.0-75.0); Hemoglobin 8.4 g/dL (12.0-16.0); Mean Corpuscular HGB CONC 33.6 g/dL (32.0-36.0); Mean Corpuscular Hemoglobin 29.9 pg (27.0-31.0); Mean Platelet Volume 5.6 fL (7.4-10.4); Platelet Count 34 thou/uL (130-400); RBC Distribution Width 14.5 % (11.5-14.5); Red Blood Cell (RBC) Count 2.79 mill/uL (4.20-5.40); White Blood Cell (WBC) Count 5.8 thou/uL (4.8-10.8)
[2018-06-09] MEDS ORDERED: Bisacodyl 5 MG TAB PO PRN (09:09)
[2018-06-09] MEDS: Senokot 8.6 MG TAB PO SCH ×2 (11:12→20:43)
--- NOTE | 2018-06-09 11:35 | PDOC.PN ---
- Subjective Encounter Start Date: 06/09/18 Encounter Start Time: 10:50 Subjective: c/o of sore throat.. - Objective Resuscitation Status - Order Detail: 06/04/18 19:18 Resuscitation Status Routine Resuscitation Status: DNAR: NO Resuscitation Discussed with: Patient Vital Signs & Weight: Vital Signs (12 hours) Temp Pulse Resp BP BP BP Pulse Ox 06/09/18 08:00 98.1 F 84 18 182/90 H 96 06/09/18 04:00 98.6 F 83 12 160/84 H 96 06/09/18 00:06 180/100 H 06/09/18 00:05 98.4 F 82 16 180/100 H 97 Weight Admit Weight 109 lb 12.8 oz Weight 109 lb 12.8 oz I&O: 06/08/18 06/09/18 06/10/18 06:59 06:59 06:59 Intake Total 790 480 Balance 790 480 Result Diagrams: 06/09/18 08:34 06/08/18 04:18 Phys Exam - Physical Examination HEENT: moist MMs (+oral thrush) Neck: no JVD Respiratory: clear to auscultation bilateral Cardiovascular: RRR Gastrointestinal: soft Musculoskeletal: edema present Dx/Plan (1) Nausea & vomiting Code(s): R11.2 - NAUSEA WITH VOMITING, UNSPECIFIED Status: Acute Comment: resolved. (2) Acute on chronic renal failure Code(s): N17.9 - ACUTE KIDNEY FAILURE, UNSPECIFIED; N18.9 - CHRONIC KIDNEY DISEASE, UNSPECIFIED Status: Acute Qualifiers: Chronic kidney disease stage: stage 2 (mild) Comment: DAVID resolved. (3) Hypertensive urgency Code(s): I16.0 - HYPERTENSIVE URGENCY Status: Acute Comment: Increase Lopressor to 75 mg bid Monitor BP. Elevated BP may be related to discomfort, sore throat.. (4) Earache on left Code(s): H92.02 - OTALGIA, LEFT EAR Status: Acute (5) Sore throat Code(s): J02.9 - ACUTE PHARYNGITIS, UNSPECIFIED Status: Acute Plan: in the presence of oral thrush. Start Nystatin SS - Plan * .
[2018-06-09] MEDS: Polyethylene Glycol 3350 17 GM Packet PO SCH (12:46)
[2018-06-09] MEDS: Nystatin 100 MU/ML ML SSW SCH ×3 (12:46→23:20)
[2018-06-09] MEDS ORDERED: Lisinopril 20 MG TAB PO SCH (15:15)
[2018-06-09] MEDS ORDERED: Milk Of Magnesia 30 ML UDCUP PO PRN (15:21)
[2018-06-09] MEDS: hydrALAZINE 20 MG/ML VIAL SLOW IVP PRN (20:44)
[2018-06-09] MEDS: ALPRAZolam 0.25 MG TAB PO PRN (20:47)
[2018-06-09] MEDS: Acetaminophen 325 MG TAB PO PRN (20:47)
[2018-06-09] MEDS: Morphine 2 MG/ML SYRINGE SLOW IVP PRN (23:30)
[2018-06-10] MEDS: Morphine 2 MG/ML SYRINGE SLOW IVP PRN ×2 (04:09→12:32)
[2018-06-10] MEDS: hydrALAZINE 20 MG/ML VIAL SLOW IVP PRN ×5 (04:28→23:08)
[2018-06-10] MEDS: Acetaminophen 325 MG TAB PO PRN ×2 (04:29→15:36)
[2018-06-10] MEDS: ALPRAZolam 0.25 MG TAB PO PRN ×3 (04:40→20:27)
[2018-06-10 04:44] LABS: Hemoglobin 8.3 g/dL (12.0-16.0); Mean Corpuscular HGB CONC 33.2 g/dL (32.0-36.0); Mean Corpuscular Hemoglobin 29.8 pg (27.0-31.0); Mean Corpuscular Volume 89.9 fL (78.0-98.0); Mean Platelet Volume 13.2 fL (7.4-10.4); Platelet Count 28 thou/uL (130-400); RBC Distribution Width 14.6 % (11.5-14.5); Red Blood Cell (RBC) Count 2.78 mill/uL (4.20-5.40); White Blood Cell (WBC) Count 6.6 thou/uL (4.8-10.8)
[2018-06-10 04:53] LABS: Anion Gap 11 mmol/L (10-20); BUN (Urea Nitrogen) 19 mg/dL (9.8-20.1); Calc. Creatinine Clearance 62 mL/min (70-130); Calcium 8.7 mg/dL (7.8-10.44); Carbon Dioxide 22 mmol/L (22-29); Chloride 108 mmol/L (98-107); Estimated GFR-MDRD 77; Glucose 102 mg/dL (70-105); Potassium 3.9 mmol/L (3.5-5.1); Sodium 137 mmol/L (136-145)
[2018-06-10 05:40] LABS: #Eosinphils 0.1 thou/uL (0.0-0.7); #Lymphocytes 0.9 thou/uL (1.20-3.40); #Monocytes 0.7 thou/uL (0.11-0.59); %Basophils 0.5 % (0.0-1.0); %Eosinophils 0.8 % (0.0-10.0); %Monocytes 10.6 % (0.0-10.0); %Neutrophils 75.1 % (42.0-75.0); Large Platelets SLIGHT; MDiff Complete? YES; Platelet Morphology Comment Appears Decreased
[2018-06-10] MEDS: Promethazine HCl 25 MG/ML VIAL IM/IV PRN ×2 (07:44→16:02)
[2018-06-10] MEDS ORDERED: Lisinopril 20 MG TAB PO SCH (09:00)
[2018-06-10] MEDS: Ondansetron PF 4 MG/2 ML Vial IVP PRN (09:31)
[2018-06-10] MEDS: Metoprolol Tartrate 50 MG TAB PO SCH ×2 (09:34→20:21)
[2018-06-10] MEDS: Potassium Chloride 10 MEQ TAB PO SCH ×2 (09:37→17:35)
[2018-06-10] MEDS: Dronabinol 2.5 MG CAP PO SCH ×2 (09:37→17:35)
[2018-06-10] MEDS: Senokot 8.6 MG TAB PO SCH ×2 (09:38→20:21)
[2018-06-10] MEDS: Polyethylene Glycol 3350 17 GM Packet PO SCH (09:38)
[2018-06-10] MEDS: Magnesium Oxide 400 MG TAB PO SCH ×2 (09:38→20:22)
--- NOTE | 2018-06-10 10:54 | PDOC.PN ---
- Subjective Encounter Start Date: 06/10/18 Encounter Start Time: 07:45 Subjective: +Sore throat. -: No earache. - Objective Resuscitation Status - Order Detail: 06/04/18 19:18 Resuscitation Status Routine Resuscitation Status: DNAR: NO Resuscitation Discussed with: Patient Vital Signs & Weight: Vital Signs (12 hours) Temp Pulse Resp BP BP BP Pulse Ox 06/10/18 08:31 98.3 F 94 16 138/79 98 06/10/18 07:46 82 06/10/18 04:43 16 178/84 H 06/10/18 04:30 82 181/78 H 06/10/18 04:28 78 203/86 H 06/10/18 04:06 98.1 F 78 16 203/86 H 98 06/09/18 23:43 169/78 H 06/09/18 23:37 98.6 F 86 18 180/80 H 98 06/09/18 23:35 180/80 H Weight Admit Weight 109 lb 12.8 oz Weight 109 lb 12.8 oz I&O: 06/09/18 06/10/18 06/11/18 06:59 06:59 06:59 Intake Total 480 1000 Balance 480 1000 Result Diagrams: 06/10/18 04:20 06/10/18 04:20 Phys Exam - Physical Examination Constitutional: NAD Neck: no JVD Respiratory: clear to auscultation bilateral Cardiovascular: RRR Gastrointestinal: soft Musculoskeletal: no edema Neurological: moves all 4 limbs Psychiatric: A&O x 3 Dx/Plan (1) Nausea & vomiting Code(s): R11.2 - NAUSEA WITH VOMITING, UNSPECIFIED Status: Acute Comment: resolved. (2) Acute on chronic renal failure Code(s): N17.9 - ACUTE KIDNEY FAILURE, UNSPECIFIED; N18.9 - CHRONIC KIDNEY DISEASE, UNSPECIFIED Status: Acute Qualifiers: Chronic kidney disease stage: stage 2 (mild) Comment: DAVID resolved. (3) Hypertensive urgency Code(s): I16.0 - HYPERTENSIVE URGENCY Status: Acute Comment: Increase Lopressor to 75 mg bid Monitor BP. Elevated BP may be related to discomfort, sore throat.. (4) Earache on left Code(s): H92.02 - OTALGIA, LEFT EAR Status: Acute Comment: resolved.. (5) Sore throat Code(s): J02.9 - ACUTE PHARYNGITIS, UNSPECIFIED Status: Acute Comment: associated with oral thrush. On Clotrimazole (6) Endometrial carcinoma Status: Acute Comment: with metastasis. As per Oncology. - Plan -: Clotrimazole for oral thrush. -: Continue current therapy.. * .
[2018-06-11] MEDS: hydrALAZINE 20 MG/ML VIAL SLOW IVP PRN ×4 (04:29→22:26)
[2018-06-11] MEDS: ALPRAZolam 0.25 MG TAB PO PRN ×2 (04:35→20:26)
[2018-06-11 05:45] LABS: #Eosinphils 0.1 thou/uL (0.0-0.7); #Monocytes 0.6 thou/uL (0.11-0.59); #Neutrophils 4.7 thou/uL (1.40-6.50); %Basophils 0.4 % (0.0-1.0); %Eosinophils 0.9 % (0.0-10.0); %Monocytes 9.6 % (0.0-10.0); %Neutrophils 74.1 % (42.0-75.0); Hemoglobin 8.8 g/dL (12.0-16.0); Mean Corpuscular HGB CONC 32.7 g/dL (32.0-36.0); Mean Corpuscular Hemoglobin 29.9 pg (27.0-31.0); Mean Corpuscular Volume 91.3 fL (78.0-98.0); Mean Platelet Volume 5.4 fL (7.4-10.4); Platelet Count 45 thou/uL (130-400); Platelet Morphology Comment Appears Decreased; RBC Distribution Width 14.8 % (11.5-14.5); Red Blood Cell (RBC) Count 2.95 mill/uL (4.20-5.40); White Blood Cell (WBC) Count 6.3 thou/uL (4.8-10.8)
[2018-06-11] MEDS: cloNIDine 0.1 MG TAB PO PRN (08:18)
[2018-06-11] MEDS: Metoprolol Tartrate 50 MG TAB PO SCH (08:18)
[2018-06-11] MEDS: Dronabinol 2.5 MG CAP PO SCH ×2 (09:03→17:05)
[2018-06-11] MEDS: Potassium Chloride 10 MEQ TAB PO SCH ×2 (09:05→17:05)
[2018-06-11] MEDS: Magnesium Oxide 400 MG TAB PO SCH ×2 (09:05→20:24)
[2018-06-11] MEDS: Senokot 8.6 MG TAB PO SCH ×2 (09:06→20:24)
--- NOTE | 2018-06-11 09:16 | PDOC.PN ---
- Subjective Encounter Start Date: 06/11/18 Encounter Start Time: 11:40 Subjective: Patient feeling much better. Eating well without nausea or vomiting -: since started on Marinol. Patient was given a scoplolamine patch that -: day as well, but has never been replaced, I took it off just now. - Objective Resuscitation Status - Order Detail: 06/04/18 19:18 Resuscitation Status Routine Resuscitation Status: DNAR: NO Resuscitation Discussed with: Patient MAR Reviewed: Yes Vital Signs & Weight: Vital Signs (12 hours) Temp Pulse Resp BP BP Pulse Ox 06/11/18 08:18 191/91 H 06/11/18 08:00 98.0 F 104 H 18 191/91 H 96 06/11/18 04:38 92 18 188/91 H 06/11/18 04:29 91 199/95 H 06/11/18 04:25 98.4 F 93 16 199/95 H 97 06/10/18 23:18 168/83 H 06/10/18 23:16 98.4 F 75 16 180/89 H 97 06/10/18 23:08 78 196/89 H Weight Admit Weight 109 lb 12.8 oz Weight 109 lb 12.8 oz I&O: 06/10/18 06/11/18 06/12/18 06:59 06:59 06:59 Intake Total 1000 200 Balance 1000 200 Result Diagrams: 06/11/18 04:40 06/10/18 04:20 Phys Exam - Physical Examination Constitutional: NAD HEENT: moist MMs Respiratory: no wheezing, no rales, no rhonchi Cardiovascular: RRR, no significant murmur Gastrointestinal: soft, positive bowel sounds Musculoskeletal: edema present moderate non-pitting edema in hands and feet Neurological: non-focal, moves all 4 limbs Psychiatric: normal affect, A&O x 3 Dx/Plan (1) Acute gastroenteritis Code(s): K52.9 - NONINFECTIVE GASTROENTERITIS AND COLITIS, UNSPECIFIED Status : Resolved Comment: due to carcinomatosis, resolved with Marinol (2) Sepsis Code(s): A41.9 - SEPSIS, UNSPECIFIED ORGANISM Status: Ruled-out Comment: WBC normal, no fever, tachycardia resolved with fluids (3) Hypertensive urgency Code(s): I16.0 - HYPERTENSIVE URGENCY Status: Acute Comment: Increase Lopressor to 100 mg bid, restart Lisinopril. Monitor BP. Elevated BP may be related to discomfort, sore throat.. (4) Acute on chronic renal failure Code(s): N17.9 - ACUTE KIDNEY FAILURE, UNSPECIFIED; N18.9 - CHRONIC KIDNEY DISEASE, UNSPECIFIED Status: Acute Qualifiers: Chronic kidney disease stage: stage 2 (mild) Comment: DAVID resolved. (5) Hypokalemia Code(s): E87.6 - HYPOKALEMIA Status: Resolved Comment: on oral supplement (6) Hypomagnesemia Code(s): E83.42 - HYPOMAGNESEMIA Status: Acute Comment: on replacement (7) Thrombocytopenia Code(s): D69.6 - THROMBOCYTOPENIA, UNSPECIFIED Status: Acute Comment: No active bleeding, stable (8) Anemia Code(s): D64.9 - ANEMIA, UNSPECIFIED Status: Chronic Qualifiers: Anemia type: unspecified type Qualified Code(s): D64.9 - Anemia, unspecified Comment: Stable now, was intially higher but likely hemoconcentration, no transfusion needed - Plan cont current plan of care can d/c home. Patient needs Marinol, oncology working on preauth -: likely d/c home in morning. Patient has a list of hospice agencies and -: will start talking to them once she gets home. * . - Discharge Day Encounter end time: 11:50
[2018-06-11] MEDS: Polyethylene Glycol 3350 17 GM Packet PO SCH (12:13)
[2018-06-11] MEDS ORDERED: Lisinopril 20 MG TAB PO SCH (15:00)
[2018-06-11] MEDS: Metoprolol Tartrate 100 MG TAB PO SCH (20:24)
[2018-06-12] MEDS: Promethazine HCl 25 MG/ML VIAL IM/IV PRN (00:29)
[2018-06-12] MEDS: Morphine 2 MG/ML SYRINGE SLOW IVP PRN (00:30)
[2018-06-12] MEDS: ALPRAZolam 0.25 MG TAB PO PRN (04:28)
[2018-06-12] MEDS: hydrALAZINE 20 MG/ML VIAL SLOW IVP PRN (04:28)
[2018-06-12 05:32] LABS: #Basophils 0.1 thou/uL (0.0-0.2); #Eosinphils 0.1 thou/uL (0.0-0.7); #Lymphocytes 0.9 thou/uL (1.20-3.40); #Monocytes 0.4 thou/uL (0.11-0.59); #Neutrophils 3.5 thou/uL (1.40-6.50); %Eosinophils 2.8 % (0.0-10.0); %Lymphocytes 18.2 % (21.0-51.0); %Monocytes 8.8 % (0.0-10.0); %Neutrophils 69.2 % (42.0-75.0); Hemoglobin 8.3 g/dL (12.0-16.0); Mean Corpuscular HGB CONC 32.7 g/dL (32.0-36.0); Mean Corpuscular Hemoglobin 29.6 pg (27.0-31.0); Mean Corpuscular Volume 90.4 fL (78.0-98.0); Mean Platelet Volume 10.4 fL (7.4-10.4); Platelet Count 67 thou/uL (130-400); RBC Distribution Width 14.6 % (11.5-14.5); Red Blood Cell (RBC) Count 2.81 mill/uL (4.20-5.40)
--- NOTE | 2018-06-12 08:16 | PDOC.PN ---
- Subjective Encounter Start Date: 06/12/18 Encounter Start Time: 11:00 Subjective: Patient feeling fine. BP has been severely elevated by assymptomatic. Now -: started a clonidine patch with some improvement. Marinol preauth done. -: Speaking with [facility] - Objective Resuscitation Status - Order Detail: 06/04/18 19:18 Resuscitation Status Routine Resuscitation Status: DNAR: NO Resuscitation Discussed with: Patient MAR Reviewed: Yes Vital Signs & Weight: Vital Signs (12 hours) Temp Pulse Resp BP BP BP Pulse Ox 06/12/18 05:57 82 178/88 H 06/12/18 05:53 82 195/92 H 06/12/18 05:48 82 16 195/92 H 06/12/18 04:45 182/87 H 06/12/18 04:35 194/93 H 06/12/18 04:28 84 206/95 H 06/12/18 04:20 98.8 F 84 16 205/95 H 95 06/11/18 22:26 99 183/91 H 06/11/18 22:25 183/91 H Weight Admit Weight 109 lb 12.8 oz Weight 109 lb 12.8 oz I&O: 06/11/18 06/12/18 06/13/18 06:59 06:59 06:59 Intake Total 200 740 Balance 200 740 Result Diagrams: 06/12/18 04:45 06/10/18 04:20 Phys Exam - Physical Examination Constitutional: NAD HEENT: moist MMs Respiratory: no wheezing, no rales, no rhonchi Cardiovascular: RRR Gastrointestinal: soft, non-tender, positive bowel sounds trace edema in hands and feet, improving Neurological: non-focal Psychiatric: normal affect, A&O x 3 Dx/Plan (1) Acute gastroenteritis Code(s): K52.9 - NONINFECTIVE GASTROENTERITIS AND COLITIS, UNSPECIFIED Status : Resolved Comment: due to carcinomatosis, resolved with Marinol (2) Sepsis Code(s): A41.9 - SEPSIS, UNSPECIFIED ORGANISM Status: Ruled-out Comment: WBC normal, no fever, tachycardia resolved with fluids (3) Hypertensive urgency Code(s): I16.0 - HYPERTENSIVE URGENCY Status: Acute Comment: Increase Lopressor to 100 mg bid, restarted Lisinopril. Reluctant to restart HCTZ due to previous renal failure, will increase Lisinopril. Clonidine patch started by Heme/Onc (4) Acute on chronic renal failure Code(s): N17.9 - ACUTE KIDNEY FAILURE, UNSPECIFIED; N18.9 - CHRONIC KIDNEY DISEASE, UNSPECIFIED Status: Acute Qualifiers: Chronic kidney disease stage: stage 2 (mild) Comment: DAVID resolved. (5) Hypokalemia Code(s): E87.6 - HYPOKALEMIA Status: Resolved Comment: on oral supplement (6) Hypomagnesemia Code(s): E83.42 - HYPOMAGNESEMIA Status: Acute Comment: on replacement (7) Thrombocytopenia Code(s): D69.6 - THROMBOCYTOPENIA, UNSPECIFIED Status: Acute Comment: No active bleeding, stable (8) Anemia Code(s): D64.9 - ANEMIA, UNSPECIFIED Status: Chronic Qualifiers: Anemia type: unspecified type Qualified Code(s): D64.9 - Anemia, unspecified Comment: Stable now, was intially higher but likely hemoconcentration, no transfusion needed - Plan cont current plan of snf on hospice today * . - Discharge Day Encounter end time: 11:10
[2018-06-12 08:29] VITALS: TEMP 98.1
[2018-06-12] MEDS: Potassium Chloride 10 MEQ TAB PO SCH (08:34)
[2018-06-12] MEDS: Metoprolol Tartrate 100 MG TAB PO SCH (08:34)
[2018-06-12] MEDS: Magnesium Oxide 400 MG TAB PO SCH (08:34)
[2018-06-12] MEDS: Polyethylene Glycol 3350 17 GM Packet PO SCH (08:34)
[2018-06-12] MEDS: Senokot 8.6 MG TAB PO SCH (08:34)
[2018-06-12] MEDS: Dronabinol 2.5 MG CAP PO SCH ×2 (08:43→16:38)
[2018-06-12] MEDS ORDERED: hydrALAZINE 25 MG TAB PO SCH ×2 (09:00)
[2018-06-12] MEDS ORDERED: cloNIDine 0.1mg/24 Hour PATCH TD SCH (09:00)
[2018-06-12] MEDS ORDERED: Lisinopril 20 MG TAB PO SCH ×2 (09:00)
--- NOTE | 2018-06-12 11:23 | DIS ---
DATE OF ADMISSION: 06/04/2018 DATE OF DISCHARGE: 06/12/2018 PRIMARY CARE PHYSICIAN: Christina Rice, nurse practitioner. REASON FOR ADMISSION: Intractable nausea and vomiting. DIAGNOSES AT DISCHARGE: 1. 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 2. Hypertensive urgency. 3. Acute on chronic renal failure, improved. 4. Metastatic uterine cancer. 5. Hypokalemia, resolved. 6. Hypomagnesemia, on replacement. 7. Thrombocytopenia, stable. 8. Anemia of chronic disease. PROCEDURES: 1. Acute abdominal series showing no evidence for obstructive pattern. 2. CT abdomen and pelvis with contrast showing progressive adenopathy related to metastatic disease along with small hepatic hypodensities, but no evidence of a bowel obstruction. 3. EGD showing normal upper endoscopy. CONSULTATIONS: 1. Heme/Oncology, Dr. Plascencia. 2. Gastroenterology, Dr. Ferreira. SUMMARY OF HOSPITAL COURSE: This is a 58-year-old white female with known history of uterine cancer, metastatic to lymph nodes. She had been receiving chemotherapy at the cancer center. She has been having progressive nausea and vomiting over the last month and a half with about 40 pounds of weight loss and eventually got to where it was intractable in spite of Zofran at home and Phenergan suppositories when she came into the hospital. Even with Zofran and Phenergan in the hospital, her nausea and vomiting were unable to be controlled and she could not take anything in p.o. Her blood pressure was very elevated, had to be controlled with IV medications at first. CT scan and x-rays were done as above, did not show any obstruction. GI was consulted. EEG was done which was normal. The nausea and vomiting were thought to be secondary to the metastatic cancer, so the patient was started on Marinol. After starting the Marinol, the patient had complete resolution of her nausea and vomiting. She was able to eat three meals a day and was doing much better. The patient did have some swelling of her hands and feet in the hospital. She only received IV fluids the first day, though the swelling progressed after that. She did have some acute renal failure when she came in for dehydration. This resolved once she had the fluid resuscitation and started to eat. Her hydrochlorothiazide and lisinopril were initially held. The patient was started on metoprolol and this was increased slowly. She still had severely elevated blood pressures and so lisinopril is being restarted. Now that her creatinine is improved, we will keep her off the hydrochlorothiazide for now. The patient has been counseled about possibly speeding setup with hospice as there is not much else that can be done from an oncology standpoint. She does not want to set up with the hospice agency right now, but she does have a list and will start contacting them when she gets home and looking at when she would need them to start coming to help her out. The patient is doing well today, eating well. She was going to be discharged home. However, her insurance requires a prior authorization for Marinol. Oncology is working on that and she will be discharged home tomorrow once that is approved. DISCHARGE MANAGEMENT: Location: Discharged home. The is planning on contacting hospice agencies herself. Activity: As tolerated. Diet: Regular diet. Followup: Follow up with Christina Rice as an outpatient and with oncologist as needed. MEDICATIONS: 1. Marinol 5 mg twice a day, 60 capsules dispensed. 2. Hydralazine 25 mg 3 times a day, 90 tablets dispensed. She can start this if her blood pressure remained severely elevated at home after restarting lisinopril. 3. Magnesium oxide 400 mg twice a day, 60 tablets dispensed. 4. Metoprolol 100 mg twice a day, 60 tablets dispensed. 5. Protonix 40 mg daily, 30 tablets dispensed. 6. Scopolamine patch one patch transdermal every three days to be used if the Marinol is not adequate by itself, 10 patches dispensed. 7. She can resume her Tylenol with Codeine at home as needed. 8. Lisinopril 40 mg daily. 9. Sertraline 100 mg daily. 10. Clonidine patch 1mg qweek Job ID: [id number] [facility]
[2018-06-12 14:16] VITALS: BP 195/93
== END 2018-06-12 17:01 | disposition hospice, home (50) | DRG 392 ==
LOC: ONC 16:59
PROVIDERS: ADMIT Internal Medicine; ATTEND Internal Medicine
PROC: 30233N1 Transfusion of Nonautologous Red Blood Cells into Peripheral Vein, Percutaneous Approach (ICD-10-PCS; 2018-06-05)
PROC: 0DJ08ZZ Inspection of Upper Intestinal Tract, Via Natural or Artificial Opening Endoscopic (ICD-10-PCS; principal; 2018-06-06)
DX: R11.2 Nausea with vomiting, unspecified (principal); C78.6 Secondary malignant neoplasm of retroperitoneum and peritoneum; C77.1 Secondary and unspecified malignant neoplasm of intrathoracic lymph nodes; N17.9 Acute kidney failure, unspecified; B37.0 Candidal stomatitis; C77.0 Secondary and unspecified malignant neoplasm of lymph nodes of head, face and neck; Z51.5 Encounter for palliative care; Z66 Do not resuscitate; I16.0 Hypertensive urgency; I12.9 Hypertensive chronic kidney disease with stage 1 through stage 4 chronic kidney disease, or unspecified chronic kidney disease; E87.6 Hypokalemia; E83.42 Hypomagnesemia; D69.6 Thrombocytopenia, unspecified; D63.0 Anemia in neoplastic disease; E86.0 Dehydration; K59.00 Constipation, unspecified; N18.2 Chronic kidney disease, stage 2 (mild); Z85.42 Personal history of malignant neoplasm of other parts of uterus; Z88.2 Allergy status to sulfonamides; Z79.899 Other long term (current) drug therapy
CPT/HCPCS: 36415; 36430; 74022; 74177; 80048; 83735; 85025; 86304; 86850; 86900; 86901; C9113; J0131; J0360; J1650; J1956; J2001; J2270; J2405; J2550; J2704; J2765; J3480; J3490; P9016; Q0162; Q0167; Q9966; S0028

== ENCOUNTER 2018-08-18 09:50 | Observation (INO) | payer OTHER ==
[2018-08-18] MEDS ORDERED: Ondansetron PF 4 MG/2 ML Vial ONE (10:21)
[2018-08-18] MEDS ORDERED: HYDROmorphone 0.5 MG/0.5 ML SYRINGE ONE (10:45)
[2018-08-18 10:49] LABS: ALT (SGPT) Less than 7 U/L (8-55); AST (SGOT) 15 U/L (5-34); Albumin 4.3 g/dL (3.5-5.0); Alkaline Phosphatase 92 U/L (40-150); Anion Gap 22 mmol/L (10-20); BUN (Urea Nitrogen) 20 mg/dL (9.8-20.1); Bilirubin, Total 0.4 mg/dL (0.2-1.2); Calc. Creatinine Clearance 0 mL/min (70-130); Calcium 10.1 mg/dL (7.8-10.44); Carbon Dioxide 21 mmol/L (22-29); Chloride 95 mmol/L (98-107); Estimated GFR-MDRD 51; Globulin 3.3 g/dL (2.4-3.5); Glucose 88 mg/dL (70-105); Lipase 5 U/L (8-78); Protein, Total 7.6 g/dL (6.0-8.3); Sodium 134 mmol/L (136-145)
[2018-08-18 10:50] LABS: Band 7 % (5-11); Hemoglobin 10.8 g/dL (12.0-16.0); Lymphocytes 11 % (21-51); MDiff Complete? YES; Mean Corpuscular HGB CONC 32.6 g/dL (32.0-36.0); Mean Corpuscular Hemoglobin 28.1 pg (27.0-31.0); Mean Corpuscular Volume 86.1 fL (78.0-98.0); Monocytes 4 % (0-10); Neutrophil 78 % (42-75); Platelet Count 351 thou/uL (130-400); RBC Distribution Width 14.3 % (11.5-14.5); Red Blood Cell (RBC) Count 3.85 mill/uL (4.20-5.40); White Blood Cell (WBC) Count 12.6 thou/uL (4.8-10.8)
[2018-08-18] MEDS ORDERED: Sodium Chloride 0.9% 100 ML ONE (11:24)
[2018-08-18] MEDS ORDERED: Promethazine HCl 25 MG SUPP ONE (11:24)
[2018-08-18] MEDS ORDERED: Morphine 4 MG/ML VIAL ONE ×2 (11:24→12:23)
[2018-08-18] MEDS ORDERED: Promethazine HCl 25 MG/ML VIAL ONE (11:27)
[2018-08-18 12:12] LABS: Bilirubin Negative (Negative); Blood, Urine Negative (Negative); Clarity CLEAR (Clear); Glucose, Urine (Dipstick) Negative (Negative); Leukocyte Moderate (Negative); Nitrite Positive (Negative); Protein, Urine (Dipstick) Trace mg/dL (Neg-Trace); Specific Gravity, Urine 1.012 (1.002-1.036); Urobilinogen 0.2 mg/dL (0.2-1.0)
[2018-08-18 12:14] LABS: Bacteria/HPF Rare-Few HPF (None Seen); Hyaline Casts/LPF 4-6 HYALINE CAST LPF (0-3 Hyaline); Pathc Cast-AUWi Flag 1.08 (0-2.49)
[2018-08-18 12:24] LABS: RBC/HPF None Seen HPF (0-3)
[2018-08-18] MEDS ORDERED: cefTRIAXone\\ROCEPHIN 1 GM VIAL ONE (13:13)
[2018-08-18] MEDS ORDERED: Morphine 4 MG/ML VIAL SLOW IVP PRN (13:54)
[2018-08-18] MEDS ORDERED: Ondansetron PF 4 MG/2 ML Vial IVP PRN (13:55)
[2018-08-18] MEDS ORDERED: Promethazine HCl 25 MG/ML VIAL IVPB PRN (13:55)
[2018-08-18] MEDS ORDERED: Acetaminophen 325 MG TAB PO PRN (13:55)
[2018-08-18] MEDS ORDERED: Ondansetron ODT 4 MG TAB SL PRN (13:55)
[2018-08-18] MEDS: hydrALAZINE 20 MG/ML VIAL SLOW IVP PRN ×2 (14:24→22:08)
[2018-08-18] MEDS: Sodium Chloride 0.9% 1,000 ML IV SCH ×3 (14:29→22:07)
[2018-08-18] MEDS: Haloperidol Lactate 5 MG/ML VIAL SLOW IVP PRN ×2 (18:06→23:02)
[2018-08-18] MEDS: Fentanyl 100 MCG/2 ML VIAL SLOW IVP PRN ×2 (18:06→22:07)
[2018-08-18 20:14] VITALS: BMI 18.5
[2018-08-18] MEDS: Gabapentin 100 MG CAP PO SCH (22:06)
[2018-08-18] MEDS: Metoclopramide HCl 10 MG TAB PER TUBE SCH (22:06)
[2018-08-18] MEDS: Dexamethasone 4 MG TAB PER TUBE SCH (22:06)
--- NOTE | 2018-08-18 23:14 | HP ---
PRIMARY CARE PHYSICIAN: TRISH Song in [place]. CHIEF COMPLAINT: Nausea, vomiting. CODE STATUS: DNR. HISTORY OF PRESENT ILLNESS: Ms. Martin is a 58-year-old female who reported to the emergency room today for complaints of nausea and vomiting x2, associated with worsening upper abdominal chest pain, chills. The patient reports it is difficult to breathe and swallow due to the nodule and the swelling in her neck. Family also reports the patient has not been able to have a bowel movement in a week despite laxatives. The patient was given 4 mg of Zofran by EMS which she spit up. The patient does have a pertinent past medical history of metastatic uterine cancer with metastases to the lymph nodes. The patient is currently on hospice. While in the ER, the ED doctor had several conversations with her and the family regarding treatment with concerns for a bowel obstruction. Lab CT scan was discussed and the patient stated that at this time she did not want a CT scan, but was okay with lab and symptomatic treatment. She has been told by the ER and by myself that at any point if she changes her mind, we will happy to move forward with imaging. The patient reports primary concern was the nausea, vomiting, and pain, which has not been helped much by Zofran or morphine at this particular time. States that she was getting Haldol with hospice and that was controlling the nausea and vomiting more than the Zofran. The patient also had a nitrite positive urinary tract infection in the ER, which was treated with Rocephin, which we will continue. The patient is admitted to Oncology for further management. REVIEW OF SYSTEMS: CONSTITUTIONAL: The patient reports chills. Denies fever. EYES: Denies any eye pain or vision changes. ENT: Reports dysphagia. Denies sore throat. CARDIOVASCULAR: Denies any chest pain or palpitations. RESPIRATORY: Denies cough. Reports some difficulty breathing. GI: Reports abdominal pain. Reports constipation, nausea, vomiting. : Dysuria, increased frequency. MUSCULOSKELETAL: Denies back pain or injury. SKIN: Denies rash or skin changes. NEUROLOGIC: Denies a headache. LYMPHATICS: The patient does have some swollen lymph nodes, especially around the clavicle area. PHYSICAL EXAMINATION: VITAL SIGNS: Blood pressure 187/102, pulse is 82, respirations 18, temperature 98, pulse ox is 97% on room air. CONSTITUTIONAL: The patient appears nontoxic. She is uncomfortable, appearing in moderate pain distress. HEENT: Head is atraumatic and normocephalic. Eyes; eyelids are normal to inspection. Pupils are equally round and reactive to light. ENT; mucous membranes are tacky. Teeth are normal. NECK: Swollen bilaterally with tenderness to palpation. Right clavicle had a large raised lymph node that is mobile, but firm. RESPIRATORY/CHEST: Right lung, breath sounds are clear. Left has diminished breath sounds at the base. CARDIOVASCULAR: Regular heart rate and rhythm. Heart sounds are normal. ABDOMEN: Tender, slightly right upper quadrant, left upper quadrant. Bowel sounds are hypoactive. Abdomen is soft. BACK: Normal inspection. Normal range of motion. No tenderness. EXTREMITIES: Upper extremities, normal range of motion. Radial pulses are equal bilaterally. Lower extremities, normal range of motion. Sensation is intact. Pedal pulses are equal bilaterally. No edema is noted. NEURO: The patient is oriented to person, place, and time. SKIN: Warm, dry, normal in color. PAST MEDICAL HISTORY: Hypertension, rheumatoid arthritis, kidney stones, uterine cancer, which is diagnosed in December 2016 and has undergone chemo treatment of metastatic lymph nodes. PAST SURGICAL HISTORY: Includes a cholecystectomy, hysterectomy, surgery for removal of kidney stones. PSYCH HISTORY: Anxiety, depression. SOCIAL HISTORY: Denies alcohol or drug. No smoking history. Lives at home with her family. KNOWN ALLERGIES: Bactrim DS. CURRENT MEDICATIONS: 1. Dexamethasone 4 mg p.o. b.i.d. 2. Sertraline 100 mg p.o. once a day. 3. Gabapentin 100 mg t.i.d. 4. Lisinopril 20 mg one tablet once a day. 5. Methadone 10 mg b.i.d. 6. Marinol 5 mg b.i.d. 7. Reglan 10 mg b.i.d. PERTINENT LABORATORY DATA: White blood cell count is 12.6, hemoglobin is 10.8, hematocrit is 33.2. Sodium is 134, potassium is 4.0, chloride is 95, gap is 22, BUN is 20, creatinine is 1.10. Liver enzymes are unremarkable. Lipase is 5. Urine is positive for nitrite, leukocyte esterase, white blood cells, squamous cells, rare bacteria. ASSESSMENT AND PLAN: 1. Nausea, vomiting, abdominal pain, intractable, related to history of uterine cancer which has metastasized. The patient is declining any aggressive measures including any imaging, labs were permitted. The patient does have a urinary tract infection which she was comfortable with treating. The patient is primarily asking for relief for her nausea, vomiting, abdominal pain. States that the morphine and the Zofran that she has been given in the ER are not really helping. We have changed, gotten some Phenergan, changed up from morphine to fentanyl. If we need anything further, we may need to ask Anesthesia to consult and possibly do a Dilaudid IV PUFF IRON OPERATOR pump for some pain control. DNR status was discussed with the patient in detail and this is her wish. 2. Hypertension. We will restart home medications. 3. Hospital course will be dependent on clinical findings. Job ID: [id number]
[2018-08-19] MEDS: Fentanyl 100 MCG/2 ML VIAL SLOW IVP PRN ×3 (03:06→10:58)
[2018-08-19] MEDS: Haloperidol Lactate 5 MG/ML VIAL SLOW IVP PRN ×3 (03:08→11:14)
[2018-08-19] MEDS: Sodium Chloride 0.9% 1,000 ML IV SCH ×2 (03:10→14:11)
[2018-08-19] MEDS: hydrALAZINE 20 MG/ML VIAL SLOW IVP PRN ×3 (05:00→14:12)
[2018-08-19 05:28] LABS: #Lymphocytes 0.3 thou/uL (1.20-3.40); #Monocytes 0.2 thou/uL (0.11-0.59); #Neutrophils 10.1 thou/uL (1.40-6.50); %Eosinophils 0.1 % (0.0-10.0); %Lymphocytes 3.1 % (21.0-51.0); %Monocytes 1.9 % (0.0-10.0); %Neutrophils 94.9 % (42.0-75.0); Hemoglobin 8.7 g/dL (12.0-16.0); Mean Corpuscular HGB CONC 32.7 g/dL (32.0-36.0); Mean Corpuscular Hemoglobin 28.4 pg (27.0-31.0); Mean Corpuscular Volume 86.8 fL (78.0-98.0); Platelet Count 255 thou/uL (130-400); RBC Distribution Width 14.5 % (11.5-14.5); Red Blood Cell (RBC) Count 3.06 mill/uL (4.20-5.40); White Blood Cell (WBC) Count 10.7 thou/uL (4.8-10.8)
[2018-08-19 05:50] LABS: Anion Gap 19 mmol/L (10-20); BUN (Urea Nitrogen) 18 mg/dL (9.8-20.1); Calc. Creatinine Clearance 50 mL/min (70-130); Calcium 9.1 mg/dL (7.8-10.44); Carbon Dioxide 19 mmol/L (22-29); Chloride 101 mmol/L (98-107); Estimated GFR-MDRD 66; Glucose 109 mg/dL (70-105); Potassium 3.8 mmol/L (3.5-5.1); Sodium 135 mmol/L (136-145)
[2018-08-19 08:45] VITALS: TEMP 98.5
[2018-08-19] MEDS ORDERED: Promethazine HCl 25 MG/ML VIAL IM PRN (08:55)
[2018-08-19] MEDS ORDERED: Lisinopril 20 MG TAB PO SCH (09:00)
[2018-08-19] MEDS: Gabapentin 100 MG CAP PO SCH (10:11)
[2018-08-19] MEDS: Metoclopramide HCl 10 MG TAB PER TUBE SCH (10:11)
[2018-08-19] MEDS: Dexamethasone 4 MG TAB PER TUBE SCH (10:11)
[2018-08-19] MEDS ORDERED: Fentanyl 100 MCG/2 ML VIAL SLOW IVP SCH (10:30)
[2018-08-19] MEDS ORDERED: cefTRIAXone\\ROCEPHIN 1 GM in Sodium Chloride 0.9% 100 ML IVPB SCH (13:00)
[2018-08-19 14:12] VITALS: BP 200/98
--- NOTE | 2018-08-20 01:36 | DIS ---
DATE OF ADMISSION: 08/18/2018 DATE OF DISCHARGE: 08/19/2018 ALLERGIES: SULFONAMIDES. CHIEF COMPLAINT: Intractable nausea, vomiting, and abdominal pain. FINAL DIAGNOSES: 1. End-stage/stage 4 metastatic uterine cancer with associated nausea, vomiting, and abdominal pain, on hospice. 2. Constipation, resolved. 3. Urinary tract infection. 4. Hypertension. PROCEDURES PERFORMED: None. LABORATORY RESULTS: White blood cell count 10.7, hemoglobin 8.7, hematocrit 26.5, platelets are 255. Sodium 135, potassium 3.8, chloride 101, BUN 18, creatinine 0.88. Urinalysis positive for nitrite, leukocyte esterase, wbc's. IMAGING RESULTS: The patient declined any imaging including chest x-ray or CT scans. CONSULTATIONS: Hospice. HOSPITAL COURSE: The patient is an unfortunate 58-year-old female with past medical history significant for metastatic uterine cancer, currently under the care of hospice. She presented to the emergency department with complaints of nausea and vomiting associated with worsening upper abdominal chest pain and chills. She also reported some difficulty breathing and swallowing due to the nodule and swelling in her neck. Family stated that she had not been able to have a bowel movement in a week despite [id number] laxative use. Apparently, hospice staff was not able to get to the patient in her home setting, and so to alleviate her severe symptoms, she presented to the emergency department via EMS. The patient was given 4 mg of Zofran en route, which she did not tolerate and spit up. While in the emergency department, a CT scan was offered to her, but the patient declined at this time. She is also a DNR. The patient reported that Haldol or Phenergan in the past has worked better for her nausea, and these two medications were used to alleviate her symptoms. Her abdominal pain and nausea did improve somewhat with these medications. She was also given laxatives and did have a bowel movement. Upon my interview this morning, the patient's pain had been controlled with fentanyl, although it tends to wax and wane. The patient was seen and evaluated by hospice, and the patient will be transferred by her daughter to inpatient hospice care. PHYSICAL EXAMINATION: VITAL SIGNS: Blood pressure 184/92, O2 saturation is 98% on room air, pulse is 97, temperature is 98.5. GENERAL: The patient is sitting up in bed. She appears mildly ill but is in no acute distress. HEENT: Head is atraumatic and normocephalic. Extraocular movements intact. NECK: Positive for right clavicular lymphadenopathy. She has some tender lymphadenopathy in her neck as well. Trachea is midline. RESPIRATORY: Regular respiratory rate and pattern, nonlabored. Overall clear. Diminished breath sounds at the bases. ABDOMEN: Positive bowel sounds. Soft, nontender. EXTREMITIES: No appreciable edema. Extremities are warm and well perfused. NEURO: Cranial nerves 2 through 12 are intact. She is nonfocal. SKIN: Warm and dry. No obvious rashes or discolorations. CONDITION AT DISCHARGE: Stable. DISCHARGE MEDICATIONS: The patient's medications will be handled by inpatient hospice. Medicine reconciliation of the patient's home medicines includes: 1. Decadron 8 mg p.o. b.i.d. 2. Marinol 5 mg p.o. b.i.d. a.c. 3. Gabapentin 100 mg p.o. t.i.d. 4. Lisinopril 20 mg daily. 5. Methadone 20 mg p.o. b.i.d. 6. Metoclopramide 10 mg p.o. b.i.d. 7. Sertraline 100 mg daily. We will continue Rocephin for UTI if the patient wishes. DISCHARGE DISPOSITION: Inpatient hospice. PLAN: Continue comfort measures per the patient's wishes. She has been accepted to inpatient hospice and the hope is for comfort and pain control at this time. Job ID: [id number]
== END 2018-08-19 14:30 | disposition hospice, inpatient (51) ==
LOC: ERS 09:50 → ONC 11:40
PROVIDERS: ADMIT Internal Medicine; ATTEND Internal Medicine
DX: C55 Malignant neoplasm of uterus, part unspecified (principal); K59.00 Constipation, unspecified; N39.0 Urinary tract infection, site not specified; I10 Essential (primary) hypertension; M06.9 Rheumatoid arthritis, unspecified; F41.9 Anxiety disorder, unspecified; F32.9 Major depressive disorder, single episode, unspecified; Z79.899 Other long term (current) drug therapy; Z88.2 Allergy status to sulfonamides; Z66 Do not resuscitate
CPT/HCPCS: 80048; 80053; 81003; 81015; 83690; 85025; 96361; 96365; 96372; 96375; 96376; G0378; J0360; J0696; J1170; J1630; J2270; J2405; J2550; J3010; J3490; J8540; J8597